=== PATIENT | female | born 1945 | race Caucasian/White ===

== ENCOUNTER 2016-10-31 06:14 | Emergency (ER) | payer MEDICARE ==
[~2016-10-31] VITALS: Ht 160 cm; Wt 110.0 kg
[~2016-10-31 06:14] MED LIST: ASPI81TA2 PO; ATOR20TA59 PO; CITA40TA14 PO; CRAN1CAP6 PO; DICY10CA13 PO; FURO40TA5 PO; GABA-338 PO; HYDR-3989 PO; IBUP-1724 PO; POTA10CA37 PO; SENN1TAB79 PO
[2016-10-31 06:17] VITALS: Ht 160 cm; Wt 110.0 kg
--- OUTSIDE RECORDS SUMMARY | 2016-10-31 06:19 | XMS REPORT | Continuity of Care Document ---
Author Author [facility] Organization [facility] Address Unknown Phone Unavailable Allergies Medications Problems Procedures Results Encounters ACCT No. Visit Date/Time Discharge Status Pt. Type Provider Facility Loc./Unit Complaint [id number] 08/15/2013 13:48:00 08/15/2013 23 :59:59 CLS Outpatient
--- OUTSIDE RECORDS SUMMARY | 2016-10-31 06:21 | XMS REPORT | Continuity of Care Document ---
Author Author [facility] Organization [facility] Address Unknown Phone Unavailable Care Team Providers Care Taxi Cab Driver Name Role Phone ULYSSES MARINELLI MD Primary Care Physician [phone] Insurance Providers Guarantor Casimiro Murray Address [address] [place] [address] Email [email or web address] Payer Medicarecritical access hospitalra o Policy Number [id number] Subscriber's Name Casimrio Murray Relationship 18 Self Group Number [id number] Effective Date 12 Chief Complaint and Reason for Visit Chief Complaint Lower Extremity Pain Reason for Visit Osteoarthritis (arthritis due to wear and tear of joints) Problems Active Problems Medical Problem Onset Date Status Bilateral cellulitis of lower leg Unknown Acute COPD (chronic obstructive pulmonary disease) Unknown Chronic Chest pain Unknown Acute Depression Unknown Chronic Diverticulitis Unknown Chronic HTN (hypertension) Unknown Chronic Head trauma Unknown Chronic IBS (irritable bowel syndrome) Unknown Chronic Leg pain, anterior Unknown Acute Obesity (BMI 30-39.9) Unknown Chronic Obstructive sleep apnea Unknown Rash Unknown Acute Seizure Unknown Chronic Tobacco dependence Unknown Chronic Past Problems Medical Problem Onset Date Hip pain Unknown Osteoarthritis (arthritis due to wear and tear of joints) Unknown Medications Current Home Medications Medication Dose Units Route Directions Days Qty Instructions Start Date Acetaminophen/Hydrocodone Bitart (Fannin 5-325 Tablet) 5-325 Tablet 1 Tab Oral Three Times A Day as needed for Pain filled 90 tabs on 09/30/16 Aspirin 81 Mg Tab.chew 162 Mg Oral Daily 09/24/15 Atorvastatin Calcium 20 Mg Tablet 20 Mg Oral Bedtime 09/20/15 Citalopram Hydrobromide (Celexa) 40 Mg Tablet 40 Mg Oral Bedtime 09/24/15 Cranberry Conc/Ascorbic Acid (Cranberry Plus Vitamin C Sftgl) 1 Each Capsule 1 Cap Oral Three Times Daily With Meals 09/24/15 Dicyclomine Hcl 10 Mg Capsule 10 Mg Oral Four Times Daily Furosemide 40 Mg Tablet 60 Mg Oral Twice A Day 10/30/16 Gabapentin 300 Mg Capsule 300 Mg Oral Twice A Day 04/10/15 Ibuprofen 200 Mg Tablet 800 Mg Oral Every 8 Hours as needed for Pain 07/08/16 Potassium Chloride 10 Meq Capsule.er 10 Meq Oral Daily 10/30/16 Sennosides/Docusate Sodium (Senna S Tablet) 1 Tab Tablet 2 Tab Oral Twice A Day 10/28/12 Past Home Medications Medication Directions Ordered Status Citalopram Hydrobromide (Celexa) 40 Mg Tablet, 1 Tab Oral Daily 05/22/15 Discontinued Citalopram Hydrobromide (Celexa) 40 Mg Tablet, Bedtime 10/08/08 Discontinued Cyclobenzaprine Hcl 10 Mg Tablet, 1 Tab Oral Three Times A Day as needed for Prn Orders 09/24/15 Discontinued Cyclobenzaprine Hcl 10 Mg Tablet, 10 Mg Oral As Needed 02/21/11 Discontinued Furosemide 40 Mg Tablet, 40 Mg Oral Daily 05/22/15 Discontinued Hydrochlorothiazide 25 Mg Tablet, Daily 10/08/08 Discontinued Lubiprostone (Amitiza) 24 Mcg Capsule, 24 Mcg Oral Daily 02/21/11 Discontinued Methylprednisolone (Medrol) 4 Mg Tablet, 2 Tab Oral Daily 09/24/15 Discontinued Potassium Chloride 10 Meq Capsule.er, 1 Tab Oral Daily 05/22/15 Discontinued Social History Social History Problem Response Recorded Date/Time Onset Date Status Hx Substance Use No 01/06/2016 7:20am Not Applicable Not Applicable Hx Alcohol Use No 01/06/2016 7:20am Not Applicable Not Applicable Has the pt used tobacco in the last 12 months Yes 07/08/2016 2:51pm Not Applicable Not Applicable Tobacco Usage smoke 05/22/2015 11:06am Not Applicable Not Applicable Hospital Discharge Instructions No hospital discharge instructions. Plan of Care Discharge Date 10/30/16 5:15pm Disposition 01 DISCHARGED HOME, SELF-CARE Condition at Discharge Stable Instructions/Education Provided Leg Pain (ED) Prescriptions See Medication Section Referrals ULYSSES MARINELLI MD Address: [address] [place] [address] [place] [phone] Functional Status No functional status results. Allergies, Adverse Reactions, Alerts Allergen Type Severity Reaction Status Last Updated bupropion HCl Allergy Unknown Active 10/30/16 Penicillin Allergy Unknown Active 10/30/16 Sulfa (Sulfonamide Antibiotics) Allergy Unknown Active 10/30/16 Conjugated estrogen Allergy Unknown Active 10/30/16 Codeine Allergy Unknown Active 10/30/16 Amoxicillin Allergy Unknown Active 10/30/16 Levofloxacin Allergy Unknown Active 10/30/16 Varenicline Allergy Unknown Active 10/30/16 Immunizations Query Response on File Recorded Date/Time Hx Influenza Vaccination No 07/08/16 2:51pm Hx Pneumococcal Vaccination Y 2012 07/08/16 2:51pm Hx Tetanus, Diptheria, Pertussis skin intact 04/10/15 8:25pm Hx Influenza Vaccination No 07/08/16 2:51pm Hx Tetanus, Diptheria, Pertussis skin intact 04/10/15 8:25pm DTaP Vaccine History UNKNOWN 01/06/16 7:20am Tdap Vaccine Hx N/A, SKIN INTACT 01/06/16 7:22am Vital Signs Acute Vital Signs Vital Response Date/Time Temperature (Fahrenheit) 99.0 deg F (96.8 - 99.1) 10/30/2016 3:25pm Temperature (Calculated Celsius) 37.33397 degrees C (36.0 - 37.3) 10/30/2016 3:25pm Pulse Rate (adult) 87 bpm (60 - 100) 10/30/2016 3:25pm Respiratory Rate 22 breaths/min (10 - 20) 10/30/2016 3:25pm O2 Sat by Pulse Oximetry 93 % (90 - 100) 10/30/2016 3:25pm Blood Pressure 141/81 mm Hg 10/30/2016 3:25pm Height (Feet) 5 feet 10/30/2016 3:25pm Height (Inches) 3.00 inches 10/30/2016 3:25pm Weight (Kilograms) 108.600 kg 10/30/2016 3:25pm Body Mass Index (BMI) 42.0 10/30/2016 3:25pm Results Name: CASIMIRO MURRAY Unit #: [id number] : 1945 Sex: F Admit Date: Loc / Svc: ED Discharge Date: DIAGNOSTIC IMAGING REPORT Report #: [id number] [facility], [place] Indication: ITS.REASON: pain PROCEDURE: KNEE BILAT STANDING 2-3 VIEWS: Encounter: Initial Comparison: None Findings: Right knee: No acute fracture or dislocation. Moderate lateral compartment joint space narrowing. No significant medial compartment joint space loss. Mild patellofemoral compartment degenerative changes. No joint effusion. Left knee: No acute fracture or dislocation. Mild medial compartment joint space narrowing. Small tricompartmental osteophytes. No gross joint effusion. Impression: Right knee: No acute fracture. Left knee: No acute fracture. . Procedures No known history of procedures. Encounters Encounter Location Arrival/Admit Date Discharge/Depart Date Attending Provider Departed Emergency Room [facility] 10/30/16 2:08pm 10/30/16 5: 15pm ELAINE ISSA MD Recent Diagnosis
--- OUTSIDE RECORDS SUMMARY | 2016-10-31 06:39 | XMS REPORT | Continuity of Care Document ---
Author Author [facility] Organization [facility] Address Unknown Phone Unavailable Allergies Medications Problems Procedures Results Encounters ACCT No. Visit Date/Time Discharge Status Pt. Type Provider Facility Loc./Unit Complaint [id number] 08/15/2013 13:48:00 08/15/2013 23 :59:59 CLS Outpatient
--- NOTE | 2016-10-31 06:53 | ERPDOC ---
Departure Disposition Decision Date: Oct 31, 2016 Disposition Decision Time: 06:54 Disposition: 01 DISCHARGED HOME, SELF-CARE Impression Impression Impression: Primary Impression: Chronic pain Chronic pain type: other chronic pain Qualified Codes: G89.29 - Other chronic pain Additional Impression: Osteoarthritis Osteoarthritis location: knee Osteoarthritis type: unspecified Laterality: right Qualified Codes: M17.11 - Unilateral primary osteoarthritis, right knee Severity: Mild Condition: Improved Seen By: Physician only Referrals: ULYSSES MARINELLI MD (PCP) 1 Day Patient Instructions: Leg Pain (ED) Problems/Meds/Labs Reviewed?: Yes Medications reviewed and manag: Yes Follow up care ordered?: Yes Mental Status: Alert, Oriented HPI - General Medical General Chief Complaint: Lower Extremity Pain Stated Complaint: R LEG PAIN Time Seen by Provider: 06:24 Source: patient, family Exam Limitations: no limitations HPI - General Medical Initial Comments 71-year-old female presents to the emergency department with a chief complaint of chronic pain in her right knee. Patient states that she has had this particular pain for over one year. She was seen yesterday in the emergency department and had imaging of the lumbar spine and right knee performed. Patient notes a moderate dull aching sensation in the right knee without radiation. She denies any injury or trauma. Patient has not been able to attend her physical therapy appointments due to conflict of scheduling. She is also currently out of her Summerfield 5 mg tablets which she has had refilled and will be able to cone picker the medication from the pharmacy today. She denies any other complaints or associated symptoms. Patient states this is her typical chronic pain. Patient declines recommended further imaging in the emergency department. The is occult therapy and Summerfield improves the pain. Ambulation increases her symptoms. She denies numbness, tingling, fever, chills, saddle anesthesia, loss of bowel or bladder control, focal weakness, abdominal pain, anticoagulation, IV drug abuse or other warning signs of back pain. Occurred At: home Onset: Constant Allergies: Coded Allergies: Estrogens (Verified Allergy, Unknown, 10/30/16) Penicillins (Verified Allergy, Unknown, 10/30/16) Sulfa (Sulfonamide Antibiotics) (Verified Allergy, Unknown, 10/30/16) amoxicillin (Verified Allergy, Unknown, 10/30/16) bupropion HCl (Verified Allergy, Unknown, 10/30/16) codeine (Verified Allergy, Unknown, 10/30/16) levofloxacin (Verified Allergy, Unknown, 10/30/16) varenicline (Verified Allergy, Unknown, 10/30/16) Past History Patient Surgical History Cholecystectomy 1979 BTL 1979 lipoma removed from upper back Past Medical History Metabolic: hypertension Respiratory: COPD, pneumonia GI: IBS, other Integumentary: other Surgical History General: gallbladder, hernia Reproductive/: tubal ligation Joint: other Family History Family PMH: FOUND: hypertension Vaccines Hx Influenza Vaccination: No Hx Pneumococcal Vaccination: Yes (2011) Social History Smoking Status: Current every day smoker # of Packs/Tins per Day: 1 # of Years: 56 Substance Use Type: does not use Alcohol Intake: none Sexuality: male partner Review of Systems Constitutional Constitutional: DENIES: chills, fever Eyes General: DENIES: erythema, exudate Lids/Accessories: DENIES: erythema, swelling Vision: DENIES: acuity, blurring ENMT Ears: DENIES: drainage, erythema Hearing: DENIES: hearing loss Balance: DENIES: ataxia, falling to one side Sinuses: DENIES: congestion, pain Nose: DENIES: nosebleeds, pain Mouth/Throat: DENIES: painful swallowing, sore throat Teeth: DENIES: pain Jaw: DENIES: pain Cardiovascular Cardiac: DENIES: chest pain, dyspnea on exertion Rhythm/Rate: DENIES: irregular beat, palpitations Vascular: DENIES: pedal edema, unilateral swelling Pulmonary Respiratory: DENIES: cough, dyspnea, pleuritic chest pain, sputum GI Upper Abdomen: DENIES: nausea, pain, vomiting Lower Abdomen: DENIES: diarrhea, pain General: DENIES: dysuria, frequency Musculoskeletal General: joint pain, tenderness Integumentary Skin: DENIES: itching, rash Neurological General: DENIES: headache, numbness, weakness Psychiatric Psychiatric: DENIES: emotional instability, suicidal ideation/attempt Endocrine Endocrine: DENIES: polydipsia, polyphagia Hematologic/Lymphatic Hematologic/Lymphatic: DENIES: frequent nosebleeds, lymphadenopathy Allergic/Immunological Allergic/Immunoligical: DENIES: allergic reactions, hives Physical Exam General General Nourishment: well nourished, well developed, appears stated age, no acute distress, adult General Body Habitus: well groomed Vitals and Pain First Documented Vital Signs Date Time Temp Pulse Resp B/P Pulse Ox O2 Delivery O2 Flow Rate FiO2 4/21/17 06:17 97.4 82 18 156/71 95 Room Air Weight: Kilograms: 110.000 Height (feet): 5 Height (inches): 3.00 Triage Pain Scale: RN VS reviewed by Provider: Yes Normal Exams: Head: Normocephalic w/o trauma Eyes: Pupils are PERRLA w/ EOMI, No scleral icterus, irritation, or foreign bodies noted ENMT: No facial trauma, nasal exudates, pharyngeal erythema, or exudates are noted Dental: No fractured, loose, or missing teeth noted Neck: Full range of motion, without adenopathy, JVD, bruits or thyromegaly Chest/Resp: Clear all merino, with good airflow, and symmetry bilaterally CV: Regular rate and rhythm, without murmur or gallop, Pulses 2+ all extremities, capillary refill, <2 seconds all ext., no pedal edema noted Abdomen: Bowel sounds positive, soft, non-tender, non-distended, no hepatosplenomegaly, masses or bruits noted Lymphatic: No lymphadenopathy, or lymphedema noted Musculoskeletal: No tenderness, or deformity noted, good range of motion, all extremities Integumentary: No rashes, hives, or bruising noted, hair and nails, without abnormality Neurologic: Patient is alert, and oriented, cranial nerves, motor/sensory/ cerebellar, exams w/o gross deficits, to observation Psychiatric: Patient exhibits, appropriate attention, emotion and affect Musculoskeletal (brief) Comments R Knee - FROM. Mildly tender to palpation diffusely. no erythema. no edema. Pulses Intact. Sensation intact. Capillary refill less than 2. No focal bony tenderness. No other tenderness in the right lower extremity. Skin is intact. + changes consistent with OA noted. Neurologic (brief) Comments Reflexes 2/4 in all ext. Differential Diagnoses Considering: Other (OA/Chronic pain/Med. Refill/Pain control visit) Progress Results/Orders Orders Procedure Category Date Status Time Hydrocodone/Acetaminophen PHA 10/31/16 Complete (Summerfield 7.5/325 07:00 Medications Current ED Medications Acetaminophen/ Hydrocodone Bitart (Summerfield 7.5/325) 1 tab O ONCE PO Last administered on 10/31/16t 07:04; Start 10/31/16 at 07:00; Stop 10/31/16 at 07:01 ; Status DC Progress Progress Patient declines recommended imaging in the emergency Department. Patient states that she is only needing pain control. Patient requests Summerfield 7.5 mg tablet. Summerfield 7.5 mg tablet is administered by mouth 1 in the emergency department with improvement of symptoms. Patient declined immobilization of knee instead electing to wear her own compression sleeve from home. Patient is discharged home in improved condition. Patient has a wheelchair that she uses when her chronic pain is bad. Patient is to follow-up as directed. She is to fill her prescription medication today. She is to return to the emergency Department if her condition worsens or changes in any manner. Patient is in agreement with the current plan of management. She is to follow up as instructed. She is discharged home in improved condition. YAHIR DONALDSON DO Oct 31, 2016 06:53 YAHIR DONALDSON DO Oct 31, 2016 06:53
--- NOTE | 2016-10-31 07:05 | NUR ---
MEDICATION NORCO 7.5MG ADMINISTERED
[2016-10-31 07:08] VITALS: BP 148/74; PULSE 84; RESP 18; TEMP 97.4; O2SAT 96
--- NOTE | 2016-10-31 07:08 | NUR ---
DISMISSAL DISMISSAL INSTRUCTIONS TO PT AND . NO FURTHER QUESTIONS AT THIS TIME. PT LEFT DEPARTMENT PER WC WITH
== END 2016-10-31 07:08 | disposition home or self-care (01) ==
LOC: ED 06:14
DX: M17.11 Unilateral primary osteoarthritis, right knee (principal); G89.29 Other chronic pain
CPT/HCPCS: 99283; A9270

== ENCOUNTER 2016-12-08 16:09 | Emergency (ER) | payer MEDICARE ==
[~2016-12-08] VITALS: Ht 160 cm; Wt 104.0 kg
[2016-12-08 16:12] VITALS: TEMP 98.6; Ht 160 cm; Wt 104.0 kg
--- OUTSIDE RECORDS SUMMARY | 2016-12-08 16:13 | XMS REPORT | Continuity of Care Document ---
Author Author [facility] Organization [facility] Address Unknown Phone Unavailable Care Team Providers Care Wire Technician Name Role Phone ULYSSES MARINELLI MD Primary Care Physician [phone] Insurance Providers Guarantor Casimiro Murray Address [address] [place] [address] Email [email or web address] Payer Medicareadecu health [facility] hospitalra o Policy Number [id number] Subscriber's Name Casimiro Murray Relationship 18 Self Group Number [id number] Effective Date 12 Advance Directives Directive Response Recorded Date/Time Advanced Directives Type None 10/31/16 6:17am Chief Complaint and Reason for Visit Chief Complaint Lower Extremity Pain Reason for Visit Chronic pain Osteoarthritis Problems Active Problems Medical Problem Onset Date [...] Chronic Past Problems Medical Problem Onset Date Chronic pain Unknown Hip pain Unknown Osteoarthritis Unknown Osteoarthritis (arthritis due to wear and tear of joints) Unknown Medications Current Home Medications Medication Dose Units Route Directions Days Qty Instructions Start Date Acetaminophen/Hydrocodone Bitart (Clar[place] 5-325 Tablet) 5-325 Tablet 1 Tab Oral Three Times A Day as needed for Pain filled 90 tabs on 09/30/16 Aspirin 81 Mg Tab.chew 162 Mg Oral Daily 09/24/15 Atorvastatin Calcium 20 Mg Tablet 20 Mg Oral Bedtime 03/10/16 Citalopram Hydrobromide (Celexa) 40 Mg Tablet 40 [...] Problem Response Recorded Date/Time Onset Date Status Chewing Tobacco Status No 10/31/2016 6:38am Not Applicable Not Applicable Hx Substance Use No 10/31/2016 6:38am Not Applicable Not Applicable Hx Alcohol Use No 10/31/2016 6:38am Not Applicable Not Applicable Has the pt used tobacco in the last 12 months Yes 07/08/2016 2:51pm Not Applicable Not Applicable Tobacco Usage smoke 05/22/2015 11:06am Not Applicable Not Applicable Query Response Start Date Stop Date Smoking Status Current every day smoker Hospital Discharge Instructions No hospital discharge instructions. Plan of Care Discharge Date 10/31/16 7:08am Disposition 01 DISCHARGED HOME, SELF-CARE Condition at Discharge Improved Instructions/Education Provided Leg Pain (ED) Prescriptions See Medication Section Referrals ULYSSES MARINELLI MD Order Date: 1 Address: [address] [place] [address] [place] [phone] Note: Care Plan and Goals Physician Care Plan Problem: Chronic Pain, Osteoarthritis Goal: Follow up with primary care provider Instructions: Take medications and follow care plan as discussed/written Functional Status No functional status results. Allergies, [...] No 07/08/16 2:51pm Hx Pneumococcal Vaccination Y 201107/08/16 2:51pm Hx Tetanus, Diptheria, Pertussis skin intact 04/10/15 8:25pm Hx Influenza Vaccination No 07/08/16 2:51pm Hx Tetanus, Diptheria, Pertussis skin intact 04/10/15 8:25pm DTaP Vaccine History UNKNOWN 10/31/16 6:38am Tdap Vaccine Hx NO BROKEN SKIN 10/30/16 4:00pm Vital Signs Acute Vital Signs Vital Response Date/Time Temperature (Fahrenheit) 97.4 deg F (96.8 - 99.1) 10/31/2016 7:08am Temperature (Calculated Celsius) 36.65575 degrees C (36.0 - 37.3) 10/31/2016 7:08am Pulse Rate (adult) 84 bpm (60 - 100) 10/31/2016 7:08am Respiratory Rate 18 breaths/min (10 - 20) 10/31/2016 7:08am O2 Sat by Pulse Oximetry 96 % (90 - 100) 10/31/2016 7:08am Blood Pressure 148/74 mm Hg 10/31/2016 7:08am Height (Feet) 5 feet 10/31/2016 6:17am Height (Inches) 3.00 inches 10/31/2016 6:17am Weight (Kilograms) 110.000 kg 10/31/2016 6:17am Body Mass Index (BMI) 42.0 10/31/2016 6:17am Results No known relevant diagnostic tests, laboratory data and/or discharge summary. Procedures No known history of procedures. Encounters Encounter Location Arrival/Admit Date Discharge/Depart Date Attending Provider Departed Emergency Room [facility] 10/31/16 6:14am 10/31/16 7: 08am YAHIR DONALDSON DO Departed Emergency Room [facility] 10/30/16 2:08pm 10/30/16 5: 15pm ELAINE ISSA MD Recent Diagnosis
--- OUTSIDE RECORDS SUMMARY | 2016-12-08 16:13 | XMS REPORT | Continuity of Care Document ---
Author Author [facility] Organization [facility] Address Unknown Phone Unavailable Allergies Medications Problems Procedures Results Encounters ACCT No. Visit Date/Time Discharge Status Pt. Type Provider Facility Loc./Unit Complaint [id number] 08/15/2013 13:48:00 08/15/2013 23 :59:59 CLS Outpatient
--- NOTE | 2016-12-08 16:22 | ERPDOC ---
Departure Disposition Decision Date: December 08, 2016 Disposition Decision Time: 17:42 Disposition: 01 DISCHARGED HOME, SELF-CARE Impression Impression Impression: Primary Impression: Back pain with sciatica Additional Impression: Cellulitis Severity: Moderate Condition: Improved Seen By: Mid-level only Referrals: ULYSSES MARINELLI MD (PCP) Patient Instructions: Cellulitis (ED), Sciatica (ED) Problems/Meds/Labs Reviewed?: Yes Medications reviewed and manag: Yes Additional Instructions: You may take two of your already prescribed Wellington 7.5mg as needed for pain every 6 hours. Follow with your PCP for re-evaluation in the next 2-3 days. Take cephalexin 500mg four times daily for one week for cellulitis. Follow treatment plan. Follow up care ordered?: Yes Mental Status: Alert, Oriented Scripts Cephalexin (Cephalexin) 500 Mg Tablet 1 TAB PO QID for 7 Days, #28 TAB Prov: BHARATI NARANJO [facility] [employer] 12/08/16 HPI - General Medical General Chief Complaint: Lower Extremity Pain Stated Complaint: EXTREME PAIN HIP Time Seen by Provider: 16:21 Source: patient HPI - General Medical Initial Comments 71 YO F presents to ED with report of sciatic on the right side. Says pain starts in her right buttock and radiates to right groin. Has been having worsen pain over the last year. Thought "I could make it until tomorrow" to see provider but cannot take pain any longer. Says she has had multiple x-rays and CT scan of her back. Was in to see PCP last week and they made her an appointment with a inweaver. Patient denies any change iPatient is on norco 7/325mg. Allergies: Coded Allergies: Estrogens (Verified Allergy, Unknown, 12/08/16) Penicillins (Verified Allergy, Unknown, 12/08/16) Sulfa (Sulfonamide Antibiotics) (Verified Allergy, Unknown, 12/08/16) amoxicillin (Verified Allergy, Unknown, 12/08/16) bupropion HCl (Verified Allergy, Unknown, 12/08/16) codeine (Verified Allergy, Unknown, 12/08/16) levofloxacin (Verified Allergy, Unknown, 12/08/16) varenicline (Verified Allergy, Unknown, 12/08/16) Past History Patient Surgical History Cholecystectomy 1979 BTL 1979 lipoma removed from upper back Past Medical History Metabolic: hypertension Cardiac: DENIES: angina Respiratory: COPD, pneumonia GI: IBS, other Female: DENIES: renal insufficiency Neurological: DENIES: seizures Musculoskeletal: back pain, osteoarthritis Integumentary: other (cellulitis) Psychological: DENIES: depression Surgical History General: gallbladder, hernia Reproductive/: tubal ligation Family History Family PMH: FOUND: hypertension Vaccines Hx Influenza Vaccination: No Hx Pneumococcal Vaccination: Yes (2011) Social History # of Packs/Tins per Day: 1 # of Years: 56 Substance Use Type: does not use Alcohol Intake: none Sexuality: male partner Review of Systems Constitutional Constitutional: DENIES: chills, dizziness, fever, weakness Eyes General: DENIES: erythema, exudate Lids/Accessories: DENIES: erythema, swelling ENMT Ears: DENIES: pain Sinuses: DENIES: congestion, rhinorrhea Mouth/Throat: DENIES: sore throat Cardiovascular Cardiac: DENIES: chest pain, murmur Rhythm/Rate: DENIES: palpitations Pulmonary Respiratory: DENIES: cough, dyspnea GI Upper Abdomen: DENIES: nausea, pain, vomiting Lower Abdomen: DENIES: diarrhea, pain General: DENIES: dysuria, pain Musculoskeletal General: pain, see HPI, tenderness Integumentary Skin: color change, see HPI, DENIES: itching, rash Neurological General: DENIES: ataxia, change in strength, numbness, paralysis/paresis, weakness Psychiatric Psychiatric: DENIES: anxiety, depression, nervousness Physical Exam General General Nourishment: well nourished, well developed, adult, obese Vitals and Pain First Documented Vital Signs Date Time Temp Pulse Resp B/P Pulse Ox O2 Delivery O2 Flow Rate FiO2 12/08/16 16:12 98.6 95 18 136/82 91 Room Air Weight: Kilograms: Height (feet): 5 Height (inches): 3.00 Triage Pain Scale: Eyes (brief) Eyes Brief: found: EOMI ENMT (brief) ENMT Brief: NOT FOUND: nasal exudate, nasal swelling Neck (brief) Neck: FOUND: trachea midline Respiratory (brief) Respiratory: FOUND: clear all merino, equal bilaterally, symmetrical Cardiovascular Auscultation: FOUND: S1, S2, rate (90), regular Peripheral Pulses : Peripheral Pulses Side: right Pulses Strength: 2+ Musculoskeletal Joint : Side: Right Joint: hip Joint Findings: FOUND: pain (TTP over right medial buttock), NOT FOUND: ROM limited, deformity, instability, swelling Back: FOUND: other (pain with straight leg raise), tenderness (TTP over right buttock), NOT FOUND: spine point tenderness Integumentary General: FOUND: dry, warm Color: FOUND: erythema (over right ankle to mid calf with increase warmth to touch), pink Neurologic (brief) Neurological Brief: FOUND: motor-no gross deficits, sensory-no gross deficits Psychiatric (brief) Psychiatric Brief: FOUND: alert, normal affect, oriented Differential Diagnoses Considering: Disc Herniation, Compression Fracture, Lumbar Sprain, Lumbar Strain, Other (cellulitis) Progress Results/Orders Orders Procedure Category Date Status Time Ketorolac (Toradol) PHA 12/08/16 Complete 16:45 Morphine Sulfate PHA 12/08/16 Complete (Morphine) 16:45 Medications Current ED Medications Ketorolac Tromethamine (Toradol) 30 mg O ONCE IM Last administered on 16:48; Start 12/08/16 at 16:45; Stop 12/08/16 at 16:46; Status DC Morphine Sulfate (Morphine) 8 mg O ONCE IM Last administered on 12/08/16 16: 49; Start 12/08/16 at 16:45; Stop 12/08/16 at 16:46; Status DC Progress Progress On exam patient has obvious erythema with increased warmth to right ankle to mid calf with scale. Patient says she has frequent bouts of cellulitis on this leg. Patient declines any imaging. I discussed exam findings with patient. BHARATI NARANJO APRN December 08, 2016 16:22
[2016-12-08] MEDS ORDERED: HYDR-4072 PO (16:25)
[2016-12-08] MEDS ORDERED: NAPR220T61 PO (16:25)
--- OUTSIDE RECORDS SUMMARY | 2016-12-08 16:31 | XMS REPORT | Continuity of Care Document ---
Author Author [facility] Organization [facility] Address Unknown Phone Unavailable Allergies Medications Problems Procedures Results Encounters ACCT No. Visit Date/Time Discharge Status Pt. Type Provider Facility Loc./Unit Complaint [id number] 08/15/2013 13:48:00 08/15/2013 23 :59:59 CLS Outpatient
[2016-12-08] MEDS ORDERED: KETOROLAC 30mg/ml INJECTION IM ONE (16:45)
[2016-12-08] MEDS ORDERED: MORPHINE SULFATE 10 MG SYRINGE IM ONE (16:45)
--- NOTE | 2016-12-08 17:10 | NUR ---
STATUS PT REPORTS DECREASE IN PAIN FROM 1510 TO [phone] AFTER MEDS ADM. PROVIDED WITH GLASS OF ICE WATER PER REQUEST AFTER CLEARANCE WITH PROVIDER. DENIES FURTHER NEEDS AT THIS TIME.
--- NOTE | 2016-12-08 17:40 | NUR ---
SPLINT METACARPAL SPLINT WITH EXTRA PADDING PLACED TO LEFT ARM. NEUROS INTACT PRE AND POST SPLINT
--- NOTE | 2016-12-08 17:40 | NUR ---
Violet tapia in [facility] - 12/08/16 at 1748 by FABIAN SPLINT METACARPAL SPLINT WITH EXTRA PADDING PLACED TO LEFT ARM. NEUROS INTACT PRE AND POST SPLINT
[2016-12-08] MEDS ORDERED: CEPH500T PO (17:46)
[2016-12-08 17:55] VITALS: BP 144/88; PULSE 79; RESP 20; O2SAT 93
--- NOTE | 2016-12-08 17:59 | NUR ---
DISMISSAL DISMISSAL INSTRUCTIONS WITH RX X1. NO FURTHER QUESTIONS AT THIS TIME. PT LEFT DEPARTMENT PER WC WITHOUT INCIDENT
[2016-12-08] MEDS ORDERED: CEPHALEXIN 500 MG CAPSULE PO ONE (18:00)
== END 2016-12-08 17:59 | disposition home or self-care (01) ==
LOC: ED 16:09
DX: M54.41 Lumbago with sciatica, right side (principal); L03.115 Cellulitis of right lower limb
CPT/HCPCS: 96372; 99283; A9270; J1885

== ENCOUNTER 2016-12-13 07:09 | Observation (INO) ==
--- NOTE | 2016-12-13 07:46 | Emergency Department Report ---
General Adult HPI - General Chief complaint: Skin/Abscess/Foreign Body Stated complaint: CELLULITIS BOTH FEET, SCIATIC NERVE PAIN RIGHT HIP Time Seen by Provider: 12/13/16 07:42 Source: patient, family Mode of arrival: ambulatory Limitations: no limitations - History of Present Illness HPI narrative: 71-year-old female presents the emergency department with a chief complaint of bilateral lower extremity cellulitis. Onset of symptoms one week ago. Symptoms have been gradually progressive in nature since onset. She notes a moderate dull aching discomfort over bilateral lower extremities. Patient states that she was started on Keflex 6 days ago without improvement of symptoms. Patient notes that the pain increases with direct palpation of the affected area. She denies any other complaints or associated symptoms. She denies any trauma or injury. The right hip pain that the patient mentions she describes as chronic sciatic pain without acute new injury. She was at home when her symptoms began. Symptoms have been persistent in nature since onset. - Related Data Home Medications Medication Instructions Recorded Confirmed Sennosides/Docusate Sodium [Senna 2 tab PO BID #0 10/28/12 12/13/16 S Tablet] Gabapentin 300 mg PO BID #0 04/10/15 12/13/16 Atorvastatin Calcium 20 mg PO HS #0 09/20/15 12/13/16 Aspirin 162 mg PO DAILY #0 09/24/15 12/13/16 Citalopram Hydrobromide [Celexa] 40 mg PO HS #0 09/24/15 12/13/16 Furosemide 60 mg PO BID #0 10/30/16 12/13/16 Potassium Chloride 10 meq PO DAILY #0 10/30/16 12/13/16 Hydrocodone/Acetaminophen 1 tab PO Q4H #90 12/08/16 12/13/16 [Hydrocodon-Acetaminoph 7.5-325] Ibuprofen [Ibuprofen Ib] 4 tab PO Q4H PRN 12/13/16 12/13/16 cephALEXin [Cephalexin] 500 mg PO QID 12/13/16 12/13/16 Allergies Allergy/AdvReac Type Severity Reaction Status Date / Time amoxicillin Allergy Unknown Verified 12/13/16 11:13 ampicillin Allergy Unknown Verified 12/13/16 13:30 codeine Allergy Unknown Verified 12/13/16 11:13 Estrogens Allergy Unknown Verified 12/13/16 11:13 levofloxacin Allergy Unknown Verified 12/13/16 11:13 Penicillins Allergy Unknown Verified 12/13/16 11:13 Sulfa (Sulfonamide Allergy Unknown Verified 12/13/16 11:13 Antibiotics) varenicline Allergy Unknown Verified 12/13/16 11:13 bupropion HCl Allergy Unknown Uncoded 12/13/16 09:30 Review of Systems Constitutional: Denies: fever, chills Eyes: Denies: eye pain, eye discharge ENT: Denies: ear pain, throat pain Cardiovascular: Denies: chest pain, dyspnea on exertion Respiratory: Denies: cough, dyspnea Gastrointestinal: Denies: abdominal pain, nausea, vomiting, diarrhea Genitourinary: Denies: urgency, dysuria Musculoskeletal: Denies: back pain, joint swelling Integumentary: Reports: erythema. Denies: rash Neurological: Denies: headache, weakness Psychiatric: Denies: anxiety, depression Endocrine: Denies: fatigue, heat or cold intolerance Hematological/Lymphatic: Denies: easy bleeding, easy bruising Allergic/Immunologic: Denies: facial swelling, urticaria PFSH Hypertension, hyperlipidemia, depression, anxiety, cellulitis Surgical History: Tubal ligation Family History: Hypertension Smoking status: Unknown if ever smoked Substance use type: does not use Alcohol intake frequency: does not drink Physical Exam - Limitations Limitations: no limitations - General General appearance: alert, in no apparent distress - Normal Exams: Head:: Normocephalic without trauma Eyes:: Pupils are PERRLA w/ EOMI, No scleral icterus, irritation, or foreign bodies noted ENMT:: No facial trauma, nasal exudates, pharyngeal erythema, or exudates are noted Dental: No fractured, loose, or missing teeth noted Neck:: Full range of motion, without adenopathy, JVD, bruits or thyromegaly Chest/Respirations:: Clear all merino, with good airflow, and symmetry bilaterally Cardiovascular:: Regular rate and rhythm, without murmur or gallop, Pulses 2+ all extremities, capillary refill, <2 seconds all extremities Abdomen:: Bowel sounds positive, soft, non-tender, non-distended, no hepatosplenomegaly, masses or bruits noted Lymphatic:: No lymphadenopathy, or lymphedema noted Musculoskeletal:: No tenderness, or deformity noted, good range of motion, all extremities Integumentary:: No rashes (erythema over bilateral anterior lower extremities. No sign of abscess or lymphangitis. Affected area is warm and tender to palpation consistent with cellulitis. Pulses are intact. Sensation is intact. Capillary refill less than 2. No focal bony tenderness.), hives, or bruising noted, hair and nails, without abnormality Neurological:: Patient is alert, and oriented, cranial nerves, motor/sensory/ cerebellar, exams w/o gross deficits, to observation Psychiatric:: Patient exhibits, appropriate attention, emotion and affect Course Course Narrative: Labs/imaging were discussed in detail with the patient and family and questions are answered. Patient is given gentle IV hydration. Patient is given analgesic pain medication with improvement of symptoms in the emergency department. X-rays do not show any findings of gas or other acute processes. Patient is started on vancomycin 2 g IV 1 after blood cultures and lactic acid are obtained. Patient is admitted for failure of outpatient treatment with bilateral lower exstrophy cellulitis to the service of the hospitalist Dr. Crum. Patient and family are in agreement with the current plan of management. Patient is admitted to the hospital in improved condition. Vital Signs Temperature 98.7 F 12/13/16 07:10 Pulse Rate 87 12/13/16 07:10 Respiratory Rate 18 12/13/16 07:10 Blood Pressure 120/77 12/13/16 07:10 Pulse Oximetry 91 12/13/16 07:10 Temperature 96.4 F L 12/13/16 15:22 Pulse Rate 92 12/13/16 15:22 Respiratory Rate 20 12/13/16 15:22 Blood Pressure 141/73 H 12/13/16 15:22 Pulse Oximetry 90 12/13/16 15:22 Medical Decision Making - [facility] Narrative Medical decision making narrative: Labs / imaging were discussed in detail with the patient and family and questions are answered. Patient was given IV hydration. Patient was given parental narcotic and antiemetic medications intravenously with improvement of symptoms. Patient was started on IV vancomycin at 0916 when sepsis was considered. Patient is admitted to the service of Dr. Crum in improved condition. Dr. Crum is in agreement with the current plan of management. Patient and family are in agreement with the current plan of management. Patient is admitted to the hospital improved condition. No further orders. Patient was admitted for failure of outpatient treatment for bilateral lower extremity cellulitis. - Lab Data Result diagrams: 12/13/16 07:53 12/13/16 07:56 Lab Results 12/13/16 12/13/16 12/13/16 Range/Units 07:53 07:56 07:56 WBC 9.1 (4.5-11.0) T/MM3 RBC 5.47 H (4.00-5.20) M/MM3 Hgb 14.6 (12-16) GM/DL Hct 44.4 (36-46) % MCV 81.2 (80-100) UM3 MCH 26.7 (26-34) UUG MCHC 32.9 (31-37) GM/DL RDW Std Deviation 53.4 H (36.9-50.2) FL Plt Count 252 (130-400) T/MM3 MPV 10.3 (9.4-12.4) UM3 Immature Gran % (Auto) 0.7 H (0.0-0.5) % Neut % (Auto) 69.1 H (33-66) % Lymph % (Auto) 14.9 L (23-45) % Colbert % (Auto) 9.1 H (0-9.0) % Eos % (Auto) 5.4 H (0-4) % Baso % (Auto) 0.8 (0-2) % Neut # 6.3 (1.8-7.7) T/MM3 Lymph # 1.4 (1-4.8) T/MM3 Colbert # 0.8 (0-0.8) T/MM3 Eos # 0.5 (0-0.5) T/MM3 Baso # 0.1 (0-0.2) T/MM3 Abs Immat Gran (auto) 0.06 H (0.00-0.03) T/MM3 Turbidity 20 (0-20) Sodium 144 (134-144) MEQ/L Potassium 4.1 (3.6-5) MEQ/L Chloride 100 (98-107) MEQ/L Carbon Dioxide 34 H (22-30) MEQ/L Anion Gap 10 (5-15) MEQ/L BUN 13.0 (7-17) MG/DL Creatinine 0.9 (0.7-1.2) MG/DL GFR Calculation 62 BUN/Creatinine Ratio 14 (6-26) RATIO Glucose 99 (65-110) MG/DL Calculated Osmolality 277 (261-280) MOSM/KG Calcium 9.3 (8.4-10.2) MG/DL Total Bilirubin 0.50 (0.20-1.30) MG/DL Icterus Index 2 (0-7) AST 15 (14-36) U/L ALT 34 (9-52) U/L Alkaline Phosphatase 95 (38-126) U/L Total Protein 6.8 (6.3-8.2) G/DL Albumin 4.1 (3.5-5.0) G/DL Globulin 2.7 (2.4-3.6) G/DL Albumin/Globulin Ratio 1.5 (1.1-2.2) RATIO Plasma Lactate 0.7 (0.6-2.2) MMOL/L Procalcitonin < 0.05 NG/ML Specimen Hemolysis 15 (0-25) - Radiology Data Bilateral lower extremity tibia/fibula x-rays: Negative Disposition Clinical Impression: Cellulitis Disposition: To [facility] Condition: Stable Time of Disposition: 10:00 (admit Dr. Crum) - Seen By: physician
[2016-12-13] MEDS ORDERED: MORPHINE SULFATE 2 MG SYRINGE IVP PRN (11:08)
[2016-12-13] MEDS ORDERED: PIPERACILLIN/TAZOBACTAM 3.375 GM in NS 100 ML IV SCH (11:08)
--- NOTE | 2016-12-13 11:14 | History & Physical Report ---
Addendum entered and electronically signed by Kassie Swift APRN 12/13/16 11 :41: Last echocardiogram from 07/10/16- EF 58% with mild diastolic dysfunction was unremarkable Original Note: <Kassie Swift V - Last Filed: 12/13/16 11:00> History of Present Illness Date: Chief complaint: Bilateral lower ext edema HPI: Gege is a 71-year-old female who is well known to the hospitalist services from previous admissions. She was seen on 12/08/16 at the emergency room with "sciatica pain and lower extremity cellulitis. She was started on Keflex 4 times a day 1 week and was also given Marshall for pain control. Since that time, pain has persisted in the right hip radiating down the right leg. She continues to have bilateral lower extremity erythema and swelling. Today, pain got so severe she presented to the emergency room for further acute evaluation and treatment. Further evaluation including laboratory studies and x-ray were obtained. WBC was found to be normal at 9.1, hemoglobin 14.6, hematocrit 44.4, platelet count 252, 69% neutrophils. Sodium is 144, potassium 4.1, BUN 13, creatinine 0.9. In this lactate is normal 0.7. Pro-calcitonin is undetectable, less than 0.05. She is afebrile at 96.0, pulse 89, respiration rate 24, blood pressure was elevated 186/93. A tib-fib x-ray was obtained that did not show any osseous abnormality. She was given IV fluids as well as vancomycin for antimicrobial coverage in the emergency room. Given swelling of lower extremities accompanied with significant pain . The hospitalist services were contacted and accepted patient for outpatient admission Patient is seen on initial examination on arrival to the medical floor. She is alert, oriented and extremely anxious. Clinically patient appears similar to prior admission in June 2016 at which time she did have chronic venous stasis of the bilateral lower extremities. Her new complaint is pain in the right hip as she did "bump" the side of her hip 3 days ago. She has pain that radiates down her leg. Has been using Marshall at home without relief. Her does verbalize that he is concerned for the severity of her discomfort and he is unable to care for her at home all the time. Did discuss advanced directives and patient does verify she wishes to be a full code Review of Systems All systems: reviewed and no additional remarkable complaints except as stated - Respiratory Respiratory: Present: cough (chronic ) - Gastrointestinal Gastrointestinal: Present: as per HPI, constipation Gastrointestinal Comments: Feels abdominal distension - Musculoskeletal Musculoskeletal: Present: as per HPI Musculoskeletal Comments: Right hip pain with radiation down right leg - Psychiatric Psychiatric: Present: anxiety, depression PFSH Hypertension. Seizures. Irritable bowel with constipation. COPD Depression. Obstructive sleep apnea. Chronic venous stasis. Obesity Surgical History: Cholecystectomy 1979. BTL 1979. lipoma removed from upper back Family History: Father had heart trouble, of heart problems or stroke in his mid-70s. He was obese and had diabetes. Mother was a heavy smoker. She had lung cancer. in her 70s. Maternal aunt also of lung cancer. Almost everyone in her family has depression. Sister, age 67, kidney failure on dialysis, plans to have kidney transplant. She is also diabetic. Hx breast cancer. Younger brother of lymphoma at age 57. Smoking status: Current every day smoker Substance use type: does not use Alcohol intake frequency: does not drink Housing: house Household members: spouse Social history: PCP Dr Marie Medications Home Medications Medication Instructions Recorded Confirmed Type Sennosides/Docusate Sodium [Senna 2 tab PO BID #0 10/28/12 12/13/16 History S Tablet] Gabapentin 300 mg PO BID #0 04/10/15 12/13/16 History Atorvastatin Calcium 20 mg PO HS #0 09/20/15 12/13/16 History Aspirin 162 mg PO DAILY #0 09/24/15 12/13/16 History Citalopram Hydrobromide [Celexa] 40 mg PO HS #0 09/24/15 12/13/16 History Furosemide 60 mg PO BID #0 10/30/16 12/13/16 History Potassium Chloride 10 meq PO DAILY #0 10/30/16 12/13/16 History Hydrocodone/Acetaminophen 1 tab PO Q4H #90 12/08/16 12/13/16 History [Hydrocodon-Acetaminoph 7.5-325] Ibuprofen [Ibuprofen Ib] 4 tab PO Q4H PRN 12/13/16 12/13/16 History cephALEXin [Cephalexin] 500 mg PO QID 12/13/16 12/13/16 History Allergies Allergy/AdvReac Type Severity Reaction Status Date / Time amoxicillin Allergy Unknown Verified 12/13/16 11:13 ampicillin Allergy Unknown Verified 12/13/16 13:30 codeine Allergy Unknown Verified 12/13/16 11:13 Estrogens Allergy Unknown Verified 12/13/16 11:13 levofloxacin Allergy Unknown Verified 12/13/16 11:13 Penicillins Allergy Unknown Verified 12/13/16 11:13 Sulfa (Sulfonamide Allergy Unknown Verified 12/13/16 11:13 Antibiotics) varenicline Allergy Unknown Verified 12/13/16 11:13 bupropion HCl Allergy Unknown Uncoded 12/13/16 09:30 Exam Vital Signs: Temp Pulse Resp BP Pulse Ox 96.0 F L 89 24 186/93 H 90 12/13/16 10:26 12/13/16 10:26 12/13/16 10:26 12/13/16 10:26 12/13/16 10:26 Height: 1.6 m Weight: 104.5 kg Body Mass Index: 40.8 - Constitutional Present: no acute distress - Routine HEENT Exam Head: Present: normocephalic Eye: Present: EOMI, PERRL - Routine Neck Exam Present: full ROM - Routine Respiratory Exam Present: CTA bilaterally - Routine Cardiovascular Exam Present: RRR, S1, S2 - Routine Abdominal Exam Present: distended, firm. Absent: normoactive bowel sounds - Routine Extremities Exam Present: edema - Detailed Lower Extremity Exam Hip: Right decreased ROM Upper leg: Right: normal inspection Lower leg: Bilateral swelling, Bilateral erythema Ankle: Bilateral erythema, Bilateral swelling - Routine Back/Spine/Pelvis Exam Pelvis: Present: SI joint tenderness (Right) - Routine Skin Exam Present: erythema (bilateral lower ext) - Routine Neurological Exam Present: alert, oriented X3, CN II-XII intact - Routine Psychiatric Exam Present: normal affect, normal thought process Results - Labs CBC & Chem 7: 12/13/16 07:53 12/13/16 07:56 Assessment and Plan (1) Venous stasis of both lower extremities Current visit: Yes Status: Acute (2) Abdominal distention Current visit: Yes Status: Acute (3) Right hip pain Current visit: Yes Status: Acute (4) Sciatica of right side Current visit: Yes Status: Acute (5) Anxiety Current visit: Yes Status: Acute Situational anxiety related to pain (6) Hypertension Current visit: Yes Status: Chronic (7) COPD (chronic obstructive pulmonary disease) Current visit: Yes Status: Chronic (8) Sleep apnea Current visit: Yes Status: Chronic (9) Tobacco dependence Current visit: Yes Status: Chronic Assessment and Plan: 12/13/16 Admit patient to outpatient observation under care of Dr. Pierce for acute exacerbation of chronic venous stasis dermatitis. Patient did receive an initial dose of vancomycin while in the emergency room. Will discuss this further with attending. Does not appear to be infectious in nature Will place Kenalog topically to bilateral lower extremities. Will place compression wraps using Dante wrap to entire lower extremity up above-knee. Continue with home dose of Lasix, 60 milligrams twice a day. In 10 you with potassium supplementation Obtain a KUB and upright x-ray given abdominal distention. Patient does report she has not had a bowel movement for 1 week, which is abnormal. She has been taking increased doses of [place] for pain control. Will rule out obstruction. Will continue on routine senna S and add Dulcolax suppositories twice a day. She on Celexa scheduled. May need to consider adding a further agent due to significant anxiety. At this point will add as needed Ativan. Morphine available as needed for pain control, however, would like to limit this. Given her constipation. Obtain x-ray of right hip given acute tenderness/pain. Will discuss further plan of care and orders with attending, Dr Pierce At time of discharge medical care will return to primary care provider, Dr. Marie Sepsis Assessment - Evaluation Sepsis screening result: No Definite Risk - Focused Exam Vital Signs Temp Pulse Resp BP Pulse Ox 12/13/16 10:26 96.0 F L 89 24 186/93 H 90 Hospital Course Summary Disclaimer: The visit summary below is not to be considered part of the above Progress Note. Hospital Course: 12/13/16 Admit patient to outpatient observation under care of Dr. Pierce for acute exacerbation of chronic venous stasis dermatitis. Patient did receive an initial dose of vancomycin while in the emergency room. Will discuss this further with attending. Does not appear to be infectious in nature Will place Kenalog topically to bilateral lower extremities. Will place compression wraps using Dante wrap to entire lower extremity up above-knee. Continue with home dose of Lasix, 60 milligrams twice a day. In 10 you with potassium supplementation Obtain a KUB and upright x-ray given abdominal distention. Patient does report she has not had a bowel movement for 1 week, which is abnormal. She has been taking increased doses of [place] for pain control. Will rule out obstruction. Will continue on routine senna S and add Dulcolax suppositories twice a day. She on Celexa scheduled. May need to consider adding a further agent due to significant anxiety. At this point will add as needed Ativan. Morphine available as needed for pain control, however, would like to limit this. Given her constipation. Obtain x-ray of right hip given acute tenderness/pain. Will discuss further plan of care and orders with attending, Dr Pierce At time of discharge medical care will return to primary care provider, Dr. Marie <Farhan Pierce - Last Filed: 12/13/16 14:41> History of Present Illness Date: [facility] Patient Stated Medical History Other Neurological: Yes Cataracts Yes Dental Problems dentures Angina Yes Hypertension Yes Chronic Obstructive Pulmonary Yes Disease (COPD) Sleep Apnea Yes: does not use a machine Hiatal Hernia Yes Other GI Yes: IBS Osteoarthritis Yes Cellulitis Yes Depression Yes Exam Vital Signs: Temp Pulse Resp BP Pulse Ox 96.0 F L 89 24 186/93 H 90 12/13/16 10:26 12/13/16 10:26 12/13/16 10:26 12/13/16 10:26 12/13/16 10:26 Height: 1.6 m Weight: 104.5 kg Results - Labs CBC & Chem 7: 12/13/16 07:53 12/13/16 07:56 Assessment and Plan Assessment and Plan: S: Pt reports chronic LE erythema and swelling, denies any f/c, n/v/d, cp or sob. O: Gen: alert oriented Resp: CTAB, no wheezes Cards: RRR without murmurs Ext: erythema and 3+ pitting edema bilaterally A/P: Stasis Dermatitis -Some concern for neuropathy component making it worse vs Lipodermatosclerosis -No clear etiology for LE swelling other then venous insufficiency, echo was mostly unremarkable, no liver or renal dysfunction suspected -Labs, clinical picture not consistent with infection so will hold off on abx -Pt reports she cannot tolerate any further increase in her gabapentin -Will do tx for statis dermatitis, topical steroids, can consider systemic steroids -Will do work up-->Order HIV, B12/folate, TSH, CRP, ESR, PERLA, Hep panel Constipation -Likely 2/2 opiate use, will do bowel regimen Sepsis Assessment - Focused Exam Vital Signs Temp Pulse Resp BP Pulse Ox 12/13/16 10:26 96.0 F L 89 24 186/93 H 90 12/13/16 10:20 98.4 F 84 20 151/88 H 91 Hospital Course Summary Disclaimer: The visit summary below is not to be considered part of the above Progress Note.
[2016-12-13] MEDS: HYDROCODONE/APAP 7.5 MG/325 MG TABLET PO SCH ×4 (11:15→22:54)
--- NOTE | 2016-12-13 13:04 | XRay Report ---
Indication: cellulitis and soft tissue swelling with redness for four days PROCEDURE: XR tib/fib BI 2V: Encounter: Initial Comparison: None Findings: Right tibia and fibula: No acute fracture, dislocation or malalignment identified. Subcutaneous edema without obvious subcutaneous gas. Left tibia and fibula: No acute fracture or dislocation. Subcutaneous soft tissue edema without obvious subcutaneous gas. Impression: Right tibia and fibula: No acute osseous abnormality. Left tibia and fibula: No acute osseous abnormality. .
[2016-12-13] MEDS: BISACODYL 10 MG SUPPOSITORY RECTALLY SCH (13:39)
[2016-12-13] MEDS: NICOTINE 21 MG PATCH TD SCH (13:41)
--- NOTE | 2016-12-13 13:52 | XRay Report ---
Indication: Right hip pain PROCEDURE: XR pelvis w/ 1 view RT hip: Encounter: Initial Comparison: None Findings: There is no acute fracture, dislocation or malalignment identified. Severe osteoarthritis in both hips with a [id number] appearance. There is osteonecrosis and flattening of the left femoral head. Degenerative change in the visualized lower lumbar spine. Right pelvic surgical clips. Impression: No acute fracture. Severe osteoarthritis. .
--- NOTE | 2016-12-13 13:53 | XRay Report ---
Indication: abdominal distention PROCEDURE: XR KUB w upright: Encounter: Initial Comparison: None Findings: Lung bases show minimal left lower lobe atelectasis. No free air. Bowel gas pattern is nonobstructive and nonspecific with a large amount of stool in the colon. Cholecystectomy clips. No abnormally dilated small bowel loops appreciated. Gas is seen distally to the level of the rectum. Severe degenerative change in the lower lumbar spine and hips. Impression: Nonobstructive nonspecific bowel gas pattern. Significantly increased colonic stool burden. .
[2016-12-13] MEDS: TRIAMCINOLONE 0.1% CREAM 15 G TUBE TOP SCH ×2 (15:08→21:21)
[2016-12-13] MEDS: FUROSEMIDE 40 MG TABLET PO SCH (17:25)
[2016-12-13] MEDS: ATORVASTATIN 20 MG TABLET PO SCH (21:19)
[2016-12-13] MEDS: BISACODYL E.C. 5 MG TABLET PO SCH (21:19)
[2016-12-13] MEDS: GABAPENTIN 300 MG CAPSULE PO SCH (21:20)
[2016-12-13] MEDS: CITALOPRAM 40 MG TABLET PO SCH (21:20)
[2016-12-13] MEDS: SENNA + DOCUSATE TABLET PO SCH (21:21)
[2016-12-14] MEDS: HYDROCODONE/APAP 7.5 MG/325 MG TABLET PO SCH ×6 (03:14→22:31)
[2016-12-14] MEDS: BISACODYL E.C. 5 MG TABLET PO SCH ×2 (09:01→20:30)
[2016-12-14] MEDS: BISACODYL 10 MG SUPPOSITORY RECTALLY SCH (09:01)
[2016-12-14] MEDS: NICOTINE 21 MG PATCH TD SCH (09:02)
[2016-12-14] MEDS: NICOTINE PATCH REMOVAL TD SCH (09:02)
[2016-12-14] MEDS: SENNA + DOCUSATE TABLET PO SCH ×2 (09:03→20:30)
[2016-12-14] MEDS: FUROSEMIDE 40 MG TABLET PO SCH ×2 (09:03→17:05)
[2016-12-14] MEDS: GABAPENTIN 300 MG CAPSULE PO SCH ×2 (09:03→20:30)
[2016-12-14] MEDS: ASPIRIN 81 MG CHEWABLE TABLET PO SCH (09:03)
[2016-12-14] MEDS: TRIAMCINOLONE 0.1% CREAM 15 G TUBE TOP SCH ×3 (11:12→20:31)
--- NOTE | 2016-12-14 14:06 | Progress Note ---
Subjective: Pt reports feeling the same as yesterday, denies any cp, n/v/d, f/c. LE swelling is a bit better. Objective Vital signs: Temp Pulse Resp BP Pulse Ox 96.2 F L 84 22 127/76 90 12/14/16 07:46 12/14/16 07:46 12/14/16 07:46 12/14/16 07:46 12/14/16 07:46 Weight: 103.5 kg - Constitutional Present: no acute distress - Routine HEENT Exam Head: Present: normocephalic, atraumatic Eye: Absent: scleral injection - Routine Respiratory Exam Present: CTA bilaterally. Absent: rales, wheezes - Routine Cardiovascular Exam Present: RRR, no murmur - Routine Abdominal Exam Present: soft, non tender - Routine Extremities Exam Present: edema. Absent: cyanosis, clubbing - Routine Skin Exam Present: rash Results - Labs CBC & Chem 7: 12/14/16 04:32 12/14/16 04:32 Labs: Short CBC 12/14/16 Range/Units 04:32 WBC 9.1 (4.5-11.0) T/MM3 Hgb 14.0 (12-16) GM/DL Hct 43.2 (36-46) % Plt Count 253 (130-400) T/MM3 BMP 12/14/16 04:32 Sodium 145 H Potassium 3.7 Chloride 101 Carbon Dioxide 33 H BUN 10.0 Creatinine 0.8 Glucose 99 Calcium 9.1 Liver Function 12/14/16 Range/Units 04:32 Total Bilirubin 0.60 (0.20-1.30) MG/DL AST 16 (14-36) U/L ALT 31 (9-52) U/L Alkaline Phosphatase 87 (38-126) U/L Albumin 4.0 (3.5-5.0) G/DL Assessment and Plan (1) Stasis dermatitis Current visit: Yes Status: Chronic (2) Right hip pain Current visit: Yes Status: Chronic (3) Sciatica of right side Current visit: Yes Status: Chronic (4) Venous stasis of both lower extremities Current visit: Yes Status: Chronic (5) COPD (chronic obstructive pulmonary disease) Current visit: Yes Status: Chronic (6) Hypertension Current visit: Yes Status: Chronic (7) Sleep apnea Current visit: Yes Status: Chronic (8) Tobacco dependence Current visit: Yes Status: Chronic Assessment and Plan: Stasis Dermatitis -Some concern for neuropathy component making it worse -No other clear etiology for LE swelling other then venous insufficiency, obesity and RODO, echo was mostly unremarkable, no liver or renal dysfunction suspected -Labs, clinical picture not consistent with infection so will hold off on abx -Pt reports she cannot tolerate any further increase in her gabapentin -Will do tx for statis dermatitis with triamcinolone cream, can consider systemic steroids -Will do work up-->HIV Neg, B12/folate pending, TSH wnl, CRP 16, PERLA pending, Hep panel pending -Discussed with pt-->Need for RODO control, elevation of legs, compression stockings Constipation -Resolved -Likely 2/2 opiate use, bowel regimen Sepsis Assessment - Evaluation Sepsis screening result: No Definite Risk - Focused Exam Vital Signs Temp Pulse Resp BP Pulse Ox 12/14/16 07:46 96.2 F L 84 22 127/76 90 Respiratory exam: Present: CTA bilaterally Cardiovascular exam: Present: RRR, S1, S2 Hospital Course Summary Disclaimer: The visit summary below is not to be considered part of the above Progress Note. Hospital Course: 12/13/16 Admit patient to outpatient observation under care of Dr. Pierce for acute exacerbation of chronic venous stasis dermatitis. Patient did receive an initial dose of vancomycin while in the emergency room. Will discuss this further with attending. Does not appear to be infectious in nature Will place Kenalog topically to bilateral lower extremities. Will place compression wraps using Dante wrap to entire lower extremity up above-knee. Continue with home dose of Lasix, 60 milligrams twice a day. In 10 you with potassium supplementation Obtain a KUB and upright x-ray given abdominal distention. Patient does report she has not had a bowel movement for 1 week, which is abnormal. She has been taking increased doses of [place] for pain control. Will rule out obstruction. Will continue on routine senna S and add Dulcolax suppositories twice a day. She on Celexa scheduled. May need to consider adding a further agent due to significant anxiety. At this point will add as needed Ativan. Morphine available as needed for pain control, however, would like to limit this. Given her constipation. Obtain x-ray of right hip given acute tenderness/pain. Will discuss further plan of care and orders with attending, Dr Pierce At time of discharge medical care will return to primary care provider, Dr. Marie
[2016-12-14] MEDS: ATORVASTATIN 20 MG TABLET PO SCH ×2 (20:30→22:13)
[2016-12-14] MEDS: CITALOPRAM 40 MG TABLET PO SCH ×2 (20:30→22:12)
[2016-12-15] MEDS: HYDROCODONE/APAP 7.5 MG/325 MG TABLET PO SCH ×5 (03:22→22:05)
[2016-12-15] MEDS: SALINE FLUSH 10ml SYRINGE IV PRN ×4 (03:28→23:25)
[2016-12-15] MEDS: NICOTINE 21 MG PATCH TD SCH (08:26)
[2016-12-15] MEDS: NICOTINE PATCH REMOVAL TD SCH (08:27)
[2016-12-15] MEDS: FUROSEMIDE 40 MG TABLET PO SCH ×2 (08:27→17:37)
[2016-12-15] MEDS: SENNA + DOCUSATE TABLET PO SCH ×2 (08:27→22:10)
[2016-12-15] MEDS: GABAPENTIN 300 MG CAPSULE PO SCH ×2 (08:28→22:11)
[2016-12-15] MEDS: TRIAMCINOLONE 0.1% CREAM 15 G TUBE TOP SCH ×3 (08:28→22:13)
[2016-12-15] MEDS: ASPIRIN 81 MG CHEWABLE TABLET PO SCH (08:28)
[2016-12-15] MEDS: BISACODYL E.C. 5 MG TABLET PO SCH ×2 (08:28→22:10)
[2016-12-15] MEDS: BISACODYL 10 MG SUPPOSITORY RECTALLY SCH (08:29)
--- NOTE | 2016-12-15 15:28 | Discharge Summary ---
Discharge Information Date of admission: 12/13/16 09:35 Anticipated date of discharge: 12/15/16 Attending Physician: Frederick Harrison MD Primary care physician: Leonides Marie MD - Discharge Diagnosis (1) Stasis dermatitis Status: Chronic (2) Right hip pain Status: Chronic (3) Sciatica of right side Status: Chronic (4) Venous stasis of both lower extremities Status: Chronic (5) COPD (chronic obstructive pulmonary disease) Status: Chronic (6) Hypertension Status: Chronic (7) Sleep apnea Status: Chronic (8) Tobacco dependence Status: Chronic - Laboratory Labs: 12/14/16 04:32 12/14/16 04:32 History of Present Illness HPI: Gege is a 71-year-old female who is well known to the hospitalist services from previous admissions. She was seen on 12/08/16 at the emergency room with "sciatica pain and lower extremity cellulitis. She was started on Keflex 4 times a day 1 week and was also given [place] for pain control. Since that time, pain has persisted in the right hip radiating down the right leg. She continues to have bilateral lower extremity erythema and swelling. Today, pain got so severe she presented to the emergency room for further acute evaluation and treatment. Further evaluation including laboratory studies and x-ray were obtained. WBC was found to be normal at 9.1, hemoglobin 14.6, hematocrit 44.4, platelet count 252, 69% neutrophils. Sodium is 144, potassium 4.1, BUN 13, creatinine 0.9. In this lactate is normal 0.7. Pro-calcitonin is undetectable, less than 0.05. She is afebrile at 96.0, pulse 89, respiration rate 24, blood pressure was elevated 186/93. A tib-fib x-ray was obtained that did not show any osseous abnormality. She was given IV fluids as well as vancomycin for antimicrobial coverage in the emergency room. Given swelling of lower extremities accompanied with significant pain . The hospitalist services were contacted and accepted patient for outpatient admission Patient is seen on initial examination on arrival to the medical floor. She is alert, oriented and extremely anxious. Clinically patient appears similar to prior admission in June 2016 at which time she did have chronic venous stasis of the bilateral lower extremities. Her new complaint is pain in the right hip as she did "bump" the side of her hip 3 days ago. She has pain that radiates down her leg. Has been using Cana at home without relief. Her does verbalize that he is concerned for the severity of her discomfort and he is unable to care for her at home all the time. Did discuss advanced directives and patient does verify she wishes to be a full code 12/15/16 15:29 Hospital Course Hospital course: has been admitted multiple times for "cellulitis" and also has been prescribed multiple courses of abx as outpatient in the last 6-8 months for her LE swelling and redness. The abx have not helped. Pt has had chronic LE swelling for >1yr and the erythema has also been present for 6mos-1yr. This is likely statis dermatitis and chronic inflammation and not an acute infection. Pt has no WBC elevation, no fever, no procalcitonin elevation, barely a crp elevation and the rash is bilateral. Pt's labs, vitals and clinical picture is not consistent with infection and it has not improved on abx likely for that reason. It is high risk for infection but not currently infected. Pt's non- compliance with her sleep apnea mask, her obesity and venous insufficiency is likely cause of her LE swelling. Discussed with her interventions to help decrease swelling and also importance of tx of her RODO. Pt reported she didn't have much help at home and that she had gotten weaker from in-activity. PT/OT jay recommended inpt rehab so pt was discharged to rehab. Discharge Plan - Med Rec/Dispo Truven Instructions: Cellulitis (GEN) Prescriptions: New Triamcinolone 0.1% Cream 15 G [Kenalog] 1 applic TOP TID tube Continue Sennosides/Docusate Sodium [Senna S Tablet] 2 tab PO BID #0 Gabapentin 300 mg PO BID #0 Aspirin 162 mg PO DAILY #0 Citalopram Hydrobromide [Celexa] 40 mg PO HS #0 Hydrocodone/Acetaminophen [Hydrocodon-Acetaminoph 7.5-325] 1 tab PO Q4H #90 Atorvastatin Calcium 20 mg PO HS #0 Furosemide 60 mg PO BID #0 Potassium Chloride 10 meq PO DAILY #0 Discontinued Ibuprofen [Ibuprofen Ib] 4 tab PO Q4H PRN PRN Reason: Pain cephALEXin [Cephalexin] 500 mg PO QID - Disposition 62 [place] [facility] [place] [place]
[2016-12-15] MEDS: ATORVASTATIN 20 MG TABLET PO SCH (22:11)
[2016-12-15] MEDS: CITALOPRAM 40 MG TABLET PO SCH (22:11)
[2016-12-16] MEDS: HYDROCODONE/APAP 7.5 MG/325 MG TABLET PO SCH ×6 (01:28→20:35)
[2016-12-16] MEDS: SALINE FLUSH 10ml SYRINGE IV PRN ×2 (04:21→20:34)
[2016-12-16] MEDS: NICOTINE 21 MG PATCH TD SCH (08:55)
[2016-12-16] MEDS: SENNA + DOCUSATE TABLET PO SCH ×2 (08:55→20:35)
[2016-12-16] MEDS: GABAPENTIN 300 MG CAPSULE PO SCH ×2 (08:56→20:35)
[2016-12-16] MEDS: ASPIRIN 81 MG CHEWABLE TABLET PO SCH (08:56)
[2016-12-16] MEDS: BISACODYL E.C. 5 MG TABLET PO SCH ×2 (08:56→20:35)
[2016-12-16] MEDS: FUROSEMIDE 40 MG TABLET PO SCH ×2 (08:56→16:53)
[2016-12-16] MEDS: TRIAMCINOLONE 0.1% CREAM 15 G TUBE TOP SCH ×3 (08:57→20:37)
[2016-12-16] MEDS: NICOTINE PATCH REMOVAL TD SCH (08:57)
[2016-12-16] MEDS: BISACODYL 10 MG SUPPOSITORY RECTALLY SCH (08:57)
--- NOTE | 2016-12-16 15:37 | Progress Note ---
Subjective: Pt reports her LE swelling and redness seems to be better, denies any cp, sob, n /v/d, f/c. Objective Vital signs: Temp Pulse Resp BP Pulse Ox 97.1 F 90 20 126/79 93 12/16/16 07:25 12/16/16 07:45 12/16/16 07:25 12/16/16 07:25 12/16/16 07:45 Weight: 103.4 kg - Constitutional Present: no acute distress, well nourished, well developed - Routine Respiratory Exam Present: CTA bilaterally. Absent: wheezes - Routine Cardiovascular Exam Present: RRR, no murmur - Routine Abdominal Exam Present: soft, non tender - Routine Extremities Exam Present: edema. Absent: cyanosis, clubbing Results - Labs CBC & Chem 7: 12/14/16 04:32 12/14/16 04:32 Assessment and Plan (1) Stasis dermatitis Current visit: Yes Status: Chronic (2) Right hip pain Current visit: Yes Status: Chronic (3) Sciatica of right side Current visit: Yes Status: Chronic (4) Venous stasis of both lower extremities Current visit: Yes Status: Chronic (5) COPD (chronic obstructive pulmonary disease) Current visit: Yes Status: Chronic (6) Hypertension Current visit: Yes Status: Chronic (7) Sleep apnea Current visit: Yes Status: Chronic (8) Tobacco dependence Current visit: Yes Status: Chronic Assessment and Plan: Stasis Dermatitis -Some concern for neuropathy component making it worse -No other clear etiology for LE swelling other then venous insufficiency, obesity and RODO, echo was mostly unremarkable, no liver or renal dysfunction suspected -Labs, clinical picture not consistent with infection so will hold off on abx -Pt reports she cannot tolerate any further increase in her gabapentin -Will do tx for statis dermatitis with triamcinolone cream, can consider systemic steroids -Will do work up-->HIV Neg, B12/folate wnls but b12 low end of normal so will do MMA/Homocyst, TSH wnl, CRP 16, PERLA pending, Hep panel negative -Discussed with pt-->Need for RODO control, elevation of legs, compression stockings Generalized Weaness -PT/OT recommends inpt rehab, will try to work on placement Chronic Right Hip pain -xray shows severe arthritis -PT/OT, supportive tx Constipation -Resolved -Likely 2/2 opiate use, bowel regimen Ppx -DVT-lovenox Sepsis Assessment - Evaluation Sepsis screening result: No Definite Risk - Focused Exam Vital Signs Temp Pulse Resp BP Pulse Ox 12/16/16 07:45 90 93 12/16/16 07:25 97.1 F 80 20 126/79 95 Respiratory exam: Present: CTA bilaterally Cardiovascular exam: Present: RRR, S1, S2 Hospital Course Summary Disclaimer: The visit summary below is not to be considered part of the above Progress Note. Hospital Course: has been admitted multiple times for "cellulitis" and also has been prescribed multiple courses of abx as outpatient in the last 6-8 months for her LE swelling and redness. The abx have not helped. Pt has had chronic LE swelling for >1yr and the erythema has also been present for 6mos-1yr. This is likely statis dermatitis and chronic inflammation and not an acute infection. Pt has no WBC elevation, no fever, no procalcitonin elevation, barely a crp elevation and the rash is bilateral. Pt's labs, vitals and clinical picture is not consistent with infection and it has not improved on abx likely for that reason. It is high risk for infection but not currently infected. Pt's non- compliance with her sleep apnea mask, her obesity and venous insufficiency is likely cause of her LE swelling. Discussed with her interventions to help decrease swelling and also importance of tx of her RODO. Pt reported she didn't have much help at home and that she had gotten weaker from in-activity. PT/OT jay recommended inpt rehab so pt was discharged to rehab.
[2016-12-16] MEDS: CITALOPRAM 40 MG TABLET PO SCH (20:35)
[2016-12-16] MEDS: ATORVASTATIN 20 MG TABLET PO SCH (20:35)
[2016-12-17] MEDS: HYDROCODONE/APAP 7.5 MG/325 MG TABLET PO SCH ×3 (00:36→09:16)
[2016-12-17] MEDS ORDERED: ENOXAPARIN 40 MG/0.4 ML INJECTION SQ SCH (09:00)
[2016-12-17] MEDS: NICOTINE 21 MG PATCH TD SCH (09:14)
[2016-12-17] MEDS: NICOTINE PATCH REMOVAL TD SCH (09:15)
[2016-12-17] MEDS: BISACODYL 10 MG SUPPOSITORY RECTALLY SCH (09:16)
[2016-12-17] MEDS: FUROSEMIDE 40 MG TABLET PO SCH (09:17)
[2016-12-17] MEDS: SENNA + DOCUSATE TABLET PO SCH (09:18)
[2016-12-17] MEDS: BISACODYL E.C. 5 MG TABLET PO SCH (09:18)
[2016-12-17] MEDS: GABAPENTIN 300 MG CAPSULE PO SCH (09:18)
[2016-12-17] MEDS: ASPIRIN 81 MG CHEWABLE TABLET PO SCH (09:23)
[2016-12-17] MEDS: TRIAMCINOLONE 0.1% CREAM 15 G TUBE TOP SCH (09:25)
--- NOTE | 2016-12-17 12:34 | Discharge Summary ---
Discharge Plan - Med Rec/Dispo Referrals/Follow Up: Leonides Marie MD [Primary Care Provider] - 1 Week () Roger Instructions: Cellulitis (GEN), Stasis Dermatitis (GEN), Sleep Apnea ( GEN) Prescriptions: New Triamcinolone 0.1% Cream 15 G [Kenalog] 1 applic TOP TID tube Nicotine Patch [Nicoderm] 21 mg TD DAILY patch Polyethylene Glycol 3350 [Miralax] 17 gm PO AM #30 powd.pack Bisacodyl Supp [Dulcolax] 10 mg RECTALLY DAILY PRN #10 supp PRN Reason: Constipation Hydrocodone/APAP 7.5/325 [[place] 7.5/325] 1 tab PO Q4H #40 Nicotine Patch Removal 1 removal TD DAILY patch Continue Sennosides/Docusate Sodium [Senna S Tablet] 2 tab PO BID #0 Gabapentin 300 mg PO BID #0 Aspirin 162 mg PO DAILY #0 Citalopram Hydrobromide [Celexa] 40 mg PO HS #0 Atorvastatin Calcium 20 mg PO HS #0 Furosemide 60 mg PO BID #0 Potassium Chloride 10 meq PO DAILY #0 Discontinued Hydrocodone/Acetaminophen [Hydrocodon-Acetaminoph 7.5-325] 1 tab PO Q4H #90 Ibuprofen [Ibuprofen Ib] 4 tab PO Q4H PRN PRN Reason: Pain cephALEXin [Cephalexin] 500 mg PO QID - [facility]position [facility] ([facility])
--- NOTE | 2016-12-17 12:56 | Extended Care Facility Orders ---
Admission Orders Admit to:: Intermediate Allergies/Adverse Reactions: Allergies amoxicillin Allergy (Unknown, Verified 12/13/16 11:13) ampicillin Allergy (Unknown, Verified 12/13/16 13:30) codeine Allergy (Unknown, Verified 12/13/16 11:13) Estrogens Allergy (Unknown, Verified 12/13/16 11:13) levofloxacin Allergy (Unknown, Verified 12/13/16 11:13) Penicillins Allergy (Unknown, Verified 12/13/16 11:13) Sulfa (Sulfonamide Antibiotics) Allergy (Unknown, Verified 12/13/16 11:13) varenicline Allergy (Unknown, Verified 12/13/16 11:13) bupropion HCl Allergy (Unknown, Uncoded 12/13/16 09:30) Admitting Diagnosis: Cellulitis lower extremities Admitting Physician: Frederick Harrison MD Attending Physician: Frederick Harrison MD Code Status: full code Anticiapted Length of Stay: 30 days or less Rehab Potential: good Rehab Prognosis: good Diet: regular Wound/Incision Care: triamcinalone oinment to lower extremities three times daily; no open wounds. Elevate legs as much as possible. May use Facility Protocol or Standing Orders: Yes May have flu vaccine: Yes Evaluations/Treatment: PT, OT Intermediate Certification: I certify that SNF services are required to be given on an Inpatient basis because of the patients need for fdc care on a continuing basis for the condition(s) for which he/she received inpatient hospital services prior to his/her transfer to the SNF. SNF inpatient care is necessary for the following reasons Indication for Intermediate: Med Admininistration, Teach Medication Management, Teach COPD Management, Other (strengthening and conditioning; ) - Additional Information In Event of Arrest: Start CPR,call 911,send patient to the ER Resident is Aware of Diagnosis: Yes Laboratory/Radiology: BMP, Mg in one week-diagnosis chronic lower extremity edema, monitor medications Referrals: Leonides Marie MD [Primary Care Provider] - 1 Week () Additional Orders: CPAP 12 cm pressure, 2 L supplemental oxygen with CPAP and titrate oxygen to O2 sat> 90% while awake; patient will benefit from sleep study in the near future
--- NOTE | 2016-12-17 13:19 | Discharge Summary ---
Discharge Information Date of admission: 12/13/16 09:35 Anticipated date of discharge: 12/17/16 Attending Physician: Frederick Harrison MD Primary care physician: Leonides Marie MD - Discharge Diagnosis (1) Venous stasis of both lower extremities Status: Chronic (2) Osteoarthritis of right hip Qualifiers: Osteoarthritis type: primary Qualified Code(s): M16.11 - Unilateral primary osteoarthritis, right hip Status: Chronic (3) Sciatica of right side Status: Chronic (4) Hypertension Status: Chronic (5) Sleep apnea Qualifiers: Sleep apnea type: obstructive Qualified Code(s): G47.33 - Obstructive sleep apnea (adult) (pediatric) Status: Chronic (6) COPD (chronic obstructive pulmonary disease) Qualifiers: COPD type: emphysema Emphysema type: unspecified Qualified Code(s): J43.9 - Emphysema, unspecified Status: Chronic (7) Tobacco dependence Status: Chronic (8) Debility Status: Acute - Laboratory Labs: 12/14/16 04:32 12/17/16 04:31 White count on admission 9.1 with 69% neutrophils, 15% lymphocytes, 9% monocytes , and 5% eosinophils. ESR 2, CRP 15.9, lactic acid 0.9, and procalcitonin <0.05 TSH 1.32, PERLA negative, acute hepatitis panel negative, HIV negative, A1c 5.4 on 12/14/16 Vitamin B-12 460, folic acid 10.2, homocystine 12.0. Methylmalonic acid pending at discharge - Radiology Radiology: 12/13/16 -Right tibia and fibula: No acute osseous abnormality. 12/13/16-Left tibia and fibula: No acute osseous abnormality. 12/13/16 x-ray pelvis with one view of the right hip demonstrated no acute fracture but severe osteoarthritis with [id number] appearance of both hips. There was osteonecrosis and flattening of the left femoral head. 12/13/16-KUB Nonobstructive nonspecific bowel gas pattern. Significantly increased colonic stool burden. History of Present Illness HPI: Gege is a 71-year-old female who is well known to the hospitalist services from previous admissions. She was seen on 12/08/16 at the emergency room with "sciatica pain and lower extremity cellulitis. She was started on Keflex 4 times a day 1 week and was also given [place] for pain control. Since that time, pain has persisted in the right hip radiating down the right leg. She continues to have bilateral lower extremity erythema and swelling. Today, pain got so severe she presented to the emergency room for further acute evaluation and treatment. Further evaluation including laboratory studies and x-ray were obtained. WBC was found to be normal at 9.1, hemoglobin 14.6, hematocrit 44.4, platelet count 252, 69% neutrophils. Sodium is 144, potassium 4.1, BUN 13, creatinine 0.9. In this lactate is normal 0.7. Pro-calcitonin is undetectable, less than 0.05. She is afebrile at 96.0, pulse 89, respiration rate 24, blood pressure was elevated 186/93. A tib-fib x-ray was obtained that did not show any osseous abnormality. She was given IV fluids as well as vancomycin for antimicrobial coverage in the emergency room. Given swelling of lower extremities accompanied with significant pain . The hospitalist services were contacted and accepted patient for outpatient admission Patient is seen on initial examination on arrival to the medical floor. She is alert, oriented and extremely anxious. Clinically patient appears similar to prior admission in June 2016 at which time she did have chronic venous stasis of the bilateral lower extremities. Her new complaint is pain in the right hip as she did "bump" the side of her hip 3 days ago. She has pain that radiates down her leg. Has been using [place] at home without relief. Her does verbalize that he is concerned for the severity of her discomfort and he is unable to care for her at home all the time. Did discuss advanced directives and patient does verify she wishes to be a full code 12/15/16 15:29 Hospital Course Hospital course: Ms. Murray has been admitted multiple times for "cellulitis" and also has been prescribed multiple courses of abx as outpatient in the last 6-8 months for her LE swelling and redness. The abx have not helped. Pt has had chronic LE swelling for >1yr and the erythema has also been present for 6mos-1yr. This is likely statis dermatitis and chronic inflammation and not an acute infection. Pt has no WBC elevation, no fever, no procalcitonin elevation, minimal crp elevation and the rash is bilateral. Pt's labs, vitals and clinical picture are not consistent with infection and it has not improved on abx likely for that reason. She is at high risk for infection but not currently infected. Pt's non- compliance with her sleep apnea mask (which she reports she no longer has), her obesity and venous insufficiency is likely cause of her LE swelling. Discussed with her interventions to help decrease swelling and also importance of tx of her RODO. CPAP resumed during hospital stay with pressure of 12 cm in conjunction with 2 L oxygen while awake and at night. Patient's legs were elevated when possible during the day. Triamcinolone ointment continued to lower extremities 3 times daily. Edema/erythema improved as did lower extremity pain without antibiotics. On 12/15 discharge to rehabilitation was anticipated but insurance approved snf only after which discharged [facility] was coordinated for 12/17. On the date of discharge the patient had no particular concerns other than feeling stiff. Edema in the lower extremities improved significantly as had erythema by her report. +1 edema persisted and there was mild generalized erythema of the distal third of both lower extremities. Patient is discharged [facility] snf at this time for strengthening and conditioning. Outpatient sleep study strongly recommended. She'll be discharged with CPAP at 12 cm in the intervening time. Patient is asked to follow-up with Dr. Marie or covering physician within one week. Electrolytes will be reassessed in one week due to chronic diuretic use. >30 minutes spent on patient care and discharge care coordination today on the date of discharge. -- Discharge Plan - Med Rec/Dispo Referrals/Follow Up: Leonides Marie MD [Primary Care Provider] - 1 Week () Roger Instructions: Sleep Apnea (GEN), Cellulitis (GEN), Stasis Dermatitis ( GEN) Prescriptions: New Triamcinolone 0.1% Cream 15 G [Kenalog] 1 applic TOP TID tube Nicotine Patch [Nicoderm] 21 mg TD DAILY patch Polyethylene Glycol 3350 [Miralax] 17 gm PO AM #30 powd.pack Bisacodyl Supp [Dulcolax] 10 mg RECTALLY DAILY PRN #10 supp PRN Reason: Constipation Hydrocodone/APAP 7.5/325 [[place] 7.5/325] 1 tab PO Q4H #40 Nicotine Patch Removal 1 removal TD DAILY patch Continue Sennosides/Docusate Sodium [Senna S Tablet] 2 tab PO BID #0 Gabapentin 300 mg PO BID #0 Aspirin 162 mg PO DAILY #0 Citalopram Hydrobromide [Celexa] 40 mg PO HS #0 Atorvastatin Calcium 20 mg PO HS #0 Furosemide 60 mg PO BID #0 Potassium Chloride 10 meq PO DAILY #0 Discontinued Hydrocodone/Acetaminophen [Hydrocodon-Acetaminoph 7.5-325] 1 tab PO Q4H #90 Ibuprofen [Ibuprofen Ib] 4 tab PO Q4H PRN PRN Reason: Pain cephALEXin [Cephalexin] 500 mg PO QID - [facility]position 03 To [facility] ([facility])
--- NOTE | 2016-12-17 13:45 | Discharge Summary ---
Discharge Plan - Med Rec/Dispo Referrals/Follow Up: Leonides Marie MD [Primary Care Provider] - 1 Week () Roger Instructions: Sleep Apnea (GEN), Cellulitis (GEN), Stasis Dermatitis ( GEN) Prescriptions: New Triamcinolone 0.1% Cream 15 G [Kenalog] 1 applic TOP TID tube Nicotine Patch [Nicoderm] 21 mg TD DAILY patch Polyethylene Glycol 3350 [Miralax] 17 gm PO AM #30 powd.pack Bisacodyl Supp [Dulcolax] 10 mg RECTALLY DAILY PRN #10 supp PRN Reason: Constipation Hydrocodone/APAP 7.5/325 [[place] 7.5/325] 1 tab PO Q4H #40 Nicotine Patch Removal 1 removal TD DAILY patch Continue Sennosides/Docusate Sodium [Senna S Tablet] 2 tab PO BID #0 Gabapentin 300 mg PO BID #0 Aspirin 162 mg PO DAILY #0 Citalopram Hydrobromide [Celexa] 40 mg PO HS #0 Atorvastatin Calcium 20 mg PO HS #0 Furosemide 60 mg PO BID #0 Potassium Chloride 10 meq PO DAILY #0 Discontinued Hydrocodone/Acetaminophen [Hydrocodon-Acetaminoph 7.5-325] 1 tab PO Q4H #90 Ibuprofen [Ibuprofen Ib] 4 tab PO Q4H PRN PRN Reason: Pain cephALEXin [Cephalexin] 500 mg PO QID - Disposition 03 To [facility] ([facility])
== END 2016-12-17 15:35 ==
LOC: ED 07:09 → MED 07:09
PROVIDERS: ADMIT Internal Medicine; ATTEND Hospitalist

== ENCOUNTER 2017-04-02 07:00 | Inpatient (IN) ==
[~2017-04-02 07:00] MED LIST changes: +ACETAMINOPHEN 500 MG TABLET PO ONE; -ASPI81TA2 PO; -ATOR20TA59 PO; -CITA40TA14 PO; +CLINDAMYCIN PB 900 MG/50 ML BAG IV ONE; -CRAN1CAP6 PO; +DEXAMETHASONE 4 MG/ML INJECTION IVP ONE; -DICY10CA13 PO; +FAMOTIDINE PB 20 MG/50 ML BAG IV ONE; -FURO40TA5 PO; -GABA-338 PO; -HYDR-3989 PO; -IBUP-1724 PO; +LIDOCAINE 1% (10mg/ml) 2mL INJ PF SDV ID ONE; +MELOXICAM 15 MG TABLET PO ONE; +METOCLOPRAMIDE 10mg/2ml INJECTION IVP ONE; +NOZIN NASAL SWAB NAS ONE; +ONDANSETRON 4 MG/2 ML INJECTION IVP ONE; -POTA10CA37 PO; -SENN1TAB79 PO
[2017-04-02 07:26] VITALS: BMI 39.8
[2017-04-02] MEDS: LR 1,000 ML IV SCH ×2 (07:44→09:29)
[2017-04-02] MEDS ORDERED: EPINEPHrine 0.25 MG, BUPIVACAINE 0.25% PF 30 ML, MORPHINE SULFATE 15 MG, KETOROLAC INJ ... OPSITE ONE (08:00)
[2017-04-02] MEDS ORDERED: VANCOMYCIN 1,000 MG INJECTION ONE (08:39)
--- NOTE | 2017-04-02 08:43 | Anesthesia Preoperative Report ---
Anesthesia Preoperative Record - Date and Time Date: 04/02/17 Preoperative Diagnosis: Lt BLANQUITA M16.12 Proposed Procedure: left total hip NPO Since Date: 04/01/17 NPO Since Time: 23:00 Allergies/Adverse Reactions: Allergies Allergy/AdvReac Type Severity Reaction Status Date / Time amoxicillin Allergy Unknown Rash Verified 04/02/17 07:18 ampicillin Allergy Unknown Rash Verified 04/02/17 07:18 Estrogens Allergy Unknown Verified 04/02/17 07:18 Penicillins Allergy Unknown Rash Verified 04/02/17 07:18 Sulfa (Sulfonamide Allergy Unknown Rash Verified 04/02/17 07:18 Antibiotics) varenicline Allergy Unknown Verified 04/02/17 07:18 codeine AdvReac Unknown altered Verified 04/02/17 07:18 congnition levofloxacin AdvReac Unknown altered Verified 04/02/17 07:18 cognition bupropion HCl AdvReac Unknown altered Uncoded 04/02/17 07:18 cognitive state - Vital Signs Vital Signs: Temperature 98.2 F 04/02/17 07:21 Pulse Rate 76 04/02/17 07:38 Respiratory Rate 18 04/02/17 07:21 Blood Pressure 132/76 04/02/17 07:21 Pulse Oximetry 94 04/02/17 07:21 Height and Weight: Height 5 ft 3 in Weight 102 kg Body Mass Index 39.8 - Medications Inpatient Medications: Current Medications Lactated Ringer's (Lactated Ringers) 1,000 mls @ 50 mls/hr IV .Q20H MEREDITH Last Admin: 04/02/17 07:44 Dose: 50 mls/hr Epinephrine HCl 0.25 mg/Bupivacaine HCl 30 ml/Morphine Sulfate 15 mg/Ketorolac Tromethamine 60 mg/Sodium Chloride 65.25 mls @ 1 mls/hr OPSITE INTRAOP ONE PRN Reason: Protocol Stop: 04/05/17 01:14 Sodium Chloride (Iv Flush) 10 - 80 ml IV PRN PRN PRN Reason: Flushing Home Medications: Home Medications Medication Instructions Recorded Confirmed Type Gabapentin 300 mg PO TID #0 04/10/15 04/02/17 History Atorvastatin Calcium 20 mg PO HS #0 09/20/15 04/02/17 History Aspirin 162 mg PO DAILY #0 09/24/15 04/01/17 History Potassium Chloride 10 meq PO DAILY #0 10/30/16 04/02/17 History Cranberry Fruit [Cranberry] 2 tab PO AC 02/12/17 04/02/17 History Sennosides/Docusate Sodium 2 each PO DAILY 02/24/17 04/02/17 History [Senna-S Tablet] Citalopram Hydrobromide [Celexa] 60 mg PO HS 02/28/17 04/02/17 History Furosemide [Lasix] 1 tab PO BID 02/28/17 04/02/17 History Hydrocodone/Acetaminophen 1 tab PO Q4-6HPRN PRN 02/28/17 04/02/17 History [Hydrocodon-Acetaminophen 5-325] Acetaminophen [Tylenol] 500 - 1,000 mg PO Q6HPRN PRN 03/31/17 04/02/17 History Dicyclomine [Bentyl] 10 mg PO QID 03/31/17 04/02/17 History Ibuprofen 400 - 600 mg PO Q6HPRN PRN 03/31/17 04/02/17 History Is Patient on Beta Roshan?: No - Medical History Respiratory: Reports: Chronic Obstructive Pulmonary Disease (COPD) (home O2 at night) Cardiovascular: Reports: Hypertension DENIES: Angina (states she had arm pain, cardiac cath done and negative), Coronary Artery Disease Gastrointestional: DENIES: Gastroesophageal Reflux Disease Renal/Endocrine: DENIES: Diabetes Mellitus Type 2 Other History: DENIES: Anesthesia Reactions - Surgical History Neurological Surgeries: Reports: Other (Exc tumor of cervical spine 1998) Cardiac Surgeries/Treatments: Reports: Cardiac Catheterization Respiratory Surgery/Treatments: Reports: Oxygen Administration Endocrine Surgery/Treatments: Reports: Other (abnormal blood glucose level) GI Surgery/Treatments: Reports: Cholecystectomy (1979), Colonoscopy (polyps), Other (Exc right groin cyst 2001) Reproductive Surgery/Treatment: Reports: Tubal Ligation (1979) Anesthesia Reactions: None Hx Family Anesthesia Reaction: No History of Motion Sickness: No - Social History Smoking Status: Former smoker Hx Chewing Tobacco Use: No Second Hand Exposure: No Substance Use Type: does not use Alcohol Intake Frequency: does not drink - Pertinent Findings Laboratory: CBC and BMP 04/02/17 08:01 BMP 04/02/17 08:01 Sodium 144 Potassium 4.1 Chloride 103 Carbon Dioxide 30 BUN 19.0 H Creatinine 0.7 Glucose 108 Calcium 9.6 EKG: Sinus Rhythm - Physical Exam Respiratory Exam: Present: lungs clear, bilateral breath sounds equal Cardiovascular Exam: Present: regular rate and rhythm - Airway Assessment Mallampati Score: II TMD: 3 Fingerbreadths Neck Extension: fair Teeth: upper dentures, lower dentures Overall Assessment: no airway concerns - ASA ASA Score: 3 - Plan Anesthesia: General TIVA, Neuroaxial - Discussion Discussion: Discussed risks/options/alternatives of anesthesia and questions answered. Patient consents. Nursing pain assessment noted. Present for Discussion: spouse Attestation Statement: Prior to the delivery of any anesthetic medication, I examined the patient, developed the plan, obtained the patient's consent and discussed the risk and benefits of the procedure with the patient/guardian. - Additional Information Seen by Anesthesia: Yes
[2017-04-02] MEDS ORDERED: MIDAZOLAM 2mg/2ml INJECTION IVP ONE (08:48)
[2017-04-02] MEDS ORDERED: PROPOFOL 500 MG/50 ML VIAL IV ONE (08:53)
[2017-04-02] MEDS ORDERED: EPHEDRINE 50mg/ml INJECTION ONE (08:55)
[2017-04-02] MEDS ORDERED: SALINE FLUSH 10ml SYRINGE ONE (08:55)
[2017-04-02] MEDS ORDERED: MIDAZOLAM 2mg/2ml INJECTION ONE (09:14)
[2017-04-02] MEDS: TRANEXAMIC ACID 1,000 MG in NS 100 ML IV ONE ×3 (09:26→14:08)
[2017-04-02] MEDS ORDERED: SALINE FLUSH 10ml SYRINGE IV PRN (09:28)
[2017-04-02] MEDS ORDERED: PROPOFOL 20 ML ONE (10:48)
[2017-04-02] MEDS: VANCOMYCIN 1,000 MG INJECTION IAR ONE ×2 (10:51→14:12)
--- NOTE | 2017-04-02 11:08 | Operative Note ---
- Procedure Preoperative Diagnosis: Left hip primary degenerative joint disease Postoperative Diagnosis: Same as preoperative diagnosis. Surgeon: Ricardo Blair MD Complications: None. Anesthesia: Spinal. Estimated Blood Loss: See Anesthesia Record. Fluids: Please see Anesthesia Record. Description of Procedure: Mrs. Murray and her left hip were identified and marked in the preoperative holding area. She was brought back to the operating suite and spinal anesthetic was administered. She was then placed in a lateral decubitus position with her left hip up. The left lower extremity was prepped and draped in my normal sterile fashion. Timeout was performed. The Epunchit robotic arm was used to assist with the surgery. A posterior approach was utilized. The patient's body habitus made the surgery significantly more difficult. An approximately 15 cm incision was made in the skin and dissection carried down to the muscle fascia which was then split in line with skin incision. A checkpoint was placed in the greater trochanter. The short external rotators were identified and tagged and detached. A capsulotomy was performed and the hip dislocated. A femoral neck osteotomy was performed at the pre- templated level measuring down from the femoral head. The head was removed and acetabulum exposed. Labrum was removed. A checkpoint was placed superior to the acetabulum. The acetabulum was then registered with the robot. The robotic arm was then used to ream with a 51 reamer. The robot then was again used to place a 52 Trident cup in 40 of tilt and 25 of anteversion. A liner was then placed. The proximal femur was exposed and prepared with a cookie cutter followed by reaming and broaching to a size 6. We trialed with a 0 head. After thorough irrigation a final Accolade 2 size 6 stem with 127 neck was placed. Leg length and offset were checked with the robot and were good. We lengthened her a millimeters. A final 0 metal head was placed and the hip reduced. Betadine solution was used to irrigate throughout the case. It was followed by normal saline irrigation. Joint cocktail was injected throughout soft tissue. The capsulotomy was repaired with Ethibond. Short external rotators were also repaired with Ethibond. 1 g of vancomycin powder was placed into the wound. The muscle fascia was then repaired with #1 Vicryl. I then left my system to close the subcutaneous tissue with 2-0 Vicryl followed by running 4-0 Monocryl skin followed by an incisional wound VAC placed due to the patient's body habitus. The patient with any placed back into supine position and taken to recovery room in the care of anesthesia.
--- NOTE | 2017-04-02 11:20 | History & Physical Update ---
- History and Physical Update Date: 04/02/17 Update: I evaluated this patient and found no changes in the history and clinical exam findings. The treatment plan and recommendations are also unchanged from the previous documentation.
--- NOTE | 2017-04-02 11:58 | Anesthesia Postoperative Note ---
- Date and Time Date: 04/02/17 Time: 11:58 - Status Patient Participated in Evaluation: Patient Participated in Person Vital Signs: Temperature 97.5 F 04/02/17 11:26 Pulse Rate 86 04/02/17 11:45 Respiratory Rate 22 04/02/17 11:45 Blood Pressure 112/66 04/02/17 11:45 Pulse Oximetry 90 04/02/17 11:45 Respiratory Function: Airway Patent Cardiovascular Function: Regular Pulse EKG: Sinus Rhythm Mental Status: Alert and Oriented Pain Intensity: 0 Hydration: IV Infusing Complications During Recover: None Apparent - Follow-Up Instructions Instructions: Per Surgeon
--- NOTE | 2017-04-02 12:14 | XRay Report ---
Indication: postoperative image PROCEDURE: XR pelvis w/ 1 view LT hip: Encounter: Initial Comparison: December 13, 2016 Findings: Postoperative changes of left total hip replacement are seen. There is expected postoperative subcutaneous gas. No evidence of hardware failure or acute fracture. No retained radiopaque surgical instruments or sponges seen. Severe degenerative change in the right hip. Impression: New left total hip prosthesis without evidence of immediate complication. .
[2017-04-02] MEDS ORDERED: LORazepam 1 MG TABLET PO PRN (12:23)
[2017-04-02] MEDS ORDERED: ONDANSETRON 4 MG/2 ML INJECTION IVP PRN (12:23)
[2017-04-02] MEDS ORDERED: DiphenhydrAMINE 25 MG CAPSULE PO PRN (12:23)
[2017-04-02] MEDS ORDERED: DiphenhydrAMINE 50 MG/ML INJECTION IVP PRN (12:23)
[2017-04-02] MEDS ORDERED: IBUPROFEN 200 MG TABLET PO PRN (12:23)
[2017-04-02] MEDS ORDERED: NOZIN NASAL SWAB NAS ONE (12:23)
[2017-04-02] MEDS: NS 1,000 ML IV SCH (12:36)
[2017-04-02] MEDS: FUROSEMIDE 40 MG TABLET PO SCH (14:55)
[2017-04-02] MEDS: ACETAMINOPHEN 325 MG TABLET PO SCH ×3 (14:55→21:12)
[2017-04-02] MEDS: NOZIN NASAL SWAB NAS SCH ×2 (14:56→22:06)
[2017-04-02] MEDS: DICYCLOMINE 10mg CAPSULE PO SCH ×3 (14:56→21:10)
[2017-04-02] MEDS: CLINDAMYCIN PB 900 MG/50 ML BAG IV SCH ×2 (14:56→21:12)
[2017-04-02] MEDS: GABAPENTIN 300 MG CAPSULE PO SCH ×2 (14:56→21:12)
[2017-04-02] MEDS ORDERED: SENNOSIDES 8.6 MG TABLET PO SCH (21:00)
[2017-04-02] MEDS ORDERED: CITALOPRAM 20 MG TABLET PO SCH (21:00)
[2017-04-02] MEDS ORDERED: ATORVASTATIN 20 MG TABLET PO SCH (21:00)
[2017-04-02] MEDS: ASPIRIN *EC* 325 MG TABLET PO SCH (21:11)
[2017-04-02] MEDS: DOCUSATE SODIUM 100 MG CAPSULE PO SCH (21:12)
[2017-04-02] MEDS: Oxycodone *IR* 5 MG TABLET PO PRN (22:45)
[2017-04-03] MEDS: NS 1,000 ML IV SCH ×3 (02:15→15:18)
[2017-04-03] MEDS: CLINDAMYCIN PB 900 MG/50 ML BAG IV SCH (03:38)
[2017-04-03] MEDS: Oxycodone *IR* 5 MG TABLET PO PRN ×3 (03:49→15:22)
[2017-04-03] MEDS: NOZIN NASAL SWAB NAS SCH ×2 (06:12→13:12)
[2017-04-03] MEDS: DICYCLOMINE 10mg CAPSULE PO SCH ×2 (06:12→12:18)
--- NOTE | 2017-04-03 08:23 | Orthopedic Progress Note ---
Date: Subjective/Severity of Illness: Gege is doing well and pain is not too bad. She uses some O2 at night at home wants to get her CPAP working again. Denies any CP or cough. She was up with PT but feels she needs placement somewhere in place of going straight home. She will likely not qualify for IRU. [facility] is another option. Orthopedic Objective PO Vital signs: Temperature 97.6 F 04/03/17 07:55 Pulse Rate 77 04/03/17 07:55 Respiratory Rate 16 04/03/17 07:55 Blood Pressure 108/64 04/03/17 07:55 Pulse Oximetry 94 04/03/17 07:55 Height and Weight: Height 5 ft 3 in Weight 234 lb 12.677 oz Body Mass Index 39.8 - Constitutional General Appearance: Present: alert, no acute distress - Respiratory Exam Present: non-labored - Extremities Exam Extremities: Present: pulses intact, normal capillary refill. Absent: calf tenderness - Surgical Site Incision: clean, dry, intact, Mepilex dressing intact, no drainage - Neurological Exam Present: intact to light touch, no deficits - Psychiatric Exam Present: alert - Labs Result Diagrams: 04/03/17 03:55 04/03/17 03:55 Abnormal lab results 04/03/17 04/03/17 Range/Units 03:55 03:55 WBC 14.0 H (4.5-11.0) T/MM3 RBC 3.96 L (4.00-5.20) M/MM3 Hgb 10.3 L (12-16) GM/DL Hct 31.7 L (36-46) % BUN 23.0 H (7-17) MG/DL Glucose 112 H (65-110) MG/DL H & H 04/03/17 Range/Units 03:55 Hgb 10.3 L (12-16) GM/DL Hct 31.7 L (36-46) % Orthopedic Assessment and Plan (1) Primary osteoarthritis of left hip Status: Acute Assessment and Plan: Aspirin protocol for VTE prophylaxis. SCD's. PT/OT services to improve independent function. Discharge Planning per Case Management. Considering [facility] vs [facility]. - Anticoagulation Therapy Anticoagulation: ASA 325 mg PO BID x6 weeks Hospital Course Summary Disclaimer: The visit summary below is not to be considered part of the above Progress Note.
--- NOTE | 2017-04-03 08:25 | Discharge Summary ---
Orthopedic Discharge Info Date of admission: 04/02/17 07:00 Primary care physician: MD Yazmin Ramachandran MD Attending Physician: Micheal Blair MD Consults: 04/02/17 IRU Screening [Inpatient Rehab Screening] [CONS] Routine Screen requested by:: Family/Patient Comment Text:: L BLANQUITA; POSSIBLE DC 04/03; [employer] 04/02/17 07:53 Consult to Anesthesiology [CONS] Routine Consulting Provider: TAMIKO Noble Reason For Exam: Preoperative Assessment 04/02/17 12:23 Case Management Consult [CONS] Routine Reason For Exam: Discharge Planning DME-Walker [CONS] Routine Height: 5 ft 3 in Weight: 224 lb 13.944 oz Comment: change dressing in 2 weeks Doctor [Physician Consult] [CONS] Routine Consulting Provider: Ethel Pollard Reason For Exam: CONT CARE Ordering Provider has Notified Toe Puncher: Yes Total Joint Outpatient Therapy [CONS] Routine Comment: change dressing in 2 weeks - Discharge Diagnosis (1) Primary osteoarthritis of left hip Status: Acute - Procedures Procedures: Lt BLANQUITA 04/02/17 - Laboratory Result Diagrams: 04/03/17 03:55 04/03/17 03:55 Laboratory: Abnormal lab results 04/03/17 04/03/17 Range/Units 03:55 03:55 WBC 14.0 H (4.5-11.0) T/MM3 RBC 3.96 L (4.00-5.20) M/MM3 Hgb 10.3 L (12-16) GM/DL Hct 31.7 L (36-46) % BUN 23.0 H (7-17) MG/DL Glucose 112 H (65-110) MG/DL H & H 04/03/17 Range/Units 03:55 Hgb 10.3 L (12-16) GM/DL Hct 31.7 L (36-46) % Orthopedic Discharge HPI - HPI Comments This patient was admitted for elective surgical tx of end stage degenerative joint disease that failed to respond to conservative treatment. Further details of this is found in the admission H&P. Orthopedic Hospital Course Hospital course: 04/03/17 08:24 After appropriate preoperative clearance and signing of operative consent, the patient was given IV antibiotics, according to orthopedic protocol. The patient was taken to the operating room and underwent elective left total hip arthroplasty. Following surgery, antibiotics were discontinued less than 24 hours according to joint protocol. Aspirin protocol was initiated and SCDs added for DVT prevention. The dressing was clean, dry, and intact. Pain control was obtained via multimodal approach. Bowel motivation addressed with scheduled and PRN medications. Early mobilization was initiated through PT services. Discharge arrangements made by a collaborative effort between the patient and Case Management. Follow-up is scheduled in 2-3 weeks. Discharge instructions given by orthopedic providers and nursing staff at discharge. Discharge condition was good. Ongoing care required?: No Discharge Plan - Med Rec/Dispo Referrals/Follow Up: Micheal Blair MD [Physician] - 04/27/17 3:00 pm Roger Instructions: [facility] Postop Instructions Prescriptions: New Aspirin *EC* [Ecotrin] 325 mg PO BID tablet Docusate Sodium [Colace] 100 mg PO BID capsule Milk of Magnesia [Mom] 30 ml PO DAILY udc Acetaminophen [Tylenol] 650 mg PO QID tablet Oxycodone *IR* [Roxicodone *Ir*] 5 - 15 mg PO Q3H PRN #60 tab PRN Reason: Pain Continue Gabapentin 300 mg PO TID #0 Cranberry Fruit [Cranberry] 2 tab PO AC Sennosides/Docusate Sodium [Senna-S Tablet] 2 each PO DAILY Citalopram Hydrobromide [Celexa] 60 mg PO HS Ibuprofen 400 - 600 mg PO Q6HPRN PRN PRN Reason: Pain Atorvastatin Calcium 20 mg PO HS #0 Potassium Chloride 10 meq PO DAILY #0 Furosemide [Lasix] 1 tab PO BID Acetaminophen [Tylenol] 500 - 1,000 mg PO Q6HPRN PRN PRN Reason: Pain Dicyclomine [Bentyl] 10 mg PO QID Discontinued Aspirin 162 mg PO DAILY #0 Hydrocodone/Acetaminophen [Hydrocodon-Acetaminophen 5-325] 1 tab PO Q4-6HPRN PRN PRN Reason: Pain - Disposition 03 To SNU Not [facility] (SNF)
[2017-04-03] MEDS ORDERED: POLYETHYL GLYCOL 3350 17gm PACKET PO SCH (09:00)
[2017-04-03] MEDS: DOCUSATE SODIUM 100 MG CAPSULE PO SCH (09:06)
[2017-04-03] MEDS: FUROSEMIDE 40 MG TABLET PO SCH (09:06)
[2017-04-03] MEDS: ASPIRIN *EC* 325 MG TABLET PO SCH (09:06)
[2017-04-03] MEDS: GABAPENTIN 300 MG CAPSULE PO SCH ×2 (09:07→15:19)
[2017-04-03] MEDS: ACETAMINOPHEN 325 MG TABLET PO SCH ×2 (09:07→13:12)
[2017-04-03] MEDS ORDERED: SENNOSIDES 8.6 MG TABLET PO PRN (11:21)
[2017-04-03 13:08] VITALS: BP 119/87; PULSE 80; RESP 18; TEMP 96.6; O2SAT 91
--- NOTE | 2017-04-03 13:40 | Extended Care Facility Orders ---
Admission Orders Admit to:: Jail Allergies/Adverse Reactions: Allergies amoxicillin Allergy (Unknown, Verified 04/02/17 07:18) Rash ampicillin Allergy (Unknown, Verified 04/02/17 07:18) Rash Estrogens Allergy (Unknown, Verified 04/02/17 07:18) Penicillins Allergy (Unknown, Verified 04/02/17 07:18) Rash Sulfa (Sulfonamide Antibiotics) Allergy (Unknown, Verified 04/02/17 07:18) Rash varenicline Allergy (Unknown, Verified 04/02/17 07:18) codeine Adverse Reaction (Unknown, Verified 04/02/17 07:18) altered congnition levofloxacin Adverse Reaction (Unknown, Verified 04/02/17 07:18) altered cognition bupropion HCl Adverse Reaction (Unknown, Uncoded 04/02/17 07:18) altered cognitive state Admitting Diagnosis: Lt BLANQUITA M16.12 Admitting Physician: Micheal Blair MD Attending Physician: Micheal Blair MD Anticiapted Length of Stay: 30 days or less Rehab Potential: good Rehab Prognosis: good Diet: 04/02/17 Lunch Regular Diet [DIET] Diet Modifications: Wound/Incision Care: Notify Dr Blair of any concerns. Keep the dressings dry. Do not remove the Vac dressing. I need to see her in the office next week to remove the Vac dressing. The upper dressing on the pelvic rim can be changed PRN. May use Facility Protocol or Standing Orders: Yes May have flu vaccine: Yes Evaluations/Treatment: PT (ROM / Exercises / strengthening / WBAT), OT Jail Certification: I certify that SNF services are required to be given on an Inpatient basis because of the patients need for care home care on a continuing basis for the condition(s) for which he/she received inpatient hospital services prior to his/her transfer to the SNF. SNF inpatient care is necessary for the following reasons Indication for Jail: Postop Assessment Care - Additional Information In Event of Arrest: Start CPR,call 911,send patient to the ER Resident is Aware of Diagnosis: Yes Referrals: Micheal Blair MD [Physician] - 04/27/17 3:00 pm Additional Orders: Encourage I.S. QID. Use oxygen at 2L NC at night and with naps. Pt has RODO. Elevate the leg to control swelling. Make F/U appt with Tanner Martin in 1 week for removal of the vac dressing.
[2017-04-04] MEDS ORDERED: BISACODYL 10 MG SUPPOSITORY RECTALLY SCH (20:00)
== END 2017-04-03 15:35 | DRG 470 ==
LOC: SRG 07:00
PROVIDERS: ADMIT Orthopaedic Surgery; ATTEND Orthopaedic Surgery

== ENCOUNTER 2017-08-04 07:30 | Inpatient (IN) ==
[2017-08-06] MEDS ORDERED: ONDANSETRON 4 MG/2 ML INJECTION IVP ONE (06:00)
[2017-08-06] MEDS ORDERED: ACETAMINOPHEN 500 MG TABLET PO ONE (06:00)
[2017-08-06] MEDS ORDERED: METOCLOPRAMIDE 10mg/2ml INJECTION IVP ONE (06:00)
[2017-08-06] MEDS ORDERED: FAMOTIDINE PB 20 MG/50 ML BAG IV ONE (06:00)
[2017-08-06] MEDS ORDERED: MELOXICAM 15 MG TABLET PO ONE (06:00)
[2017-08-06] MEDS ORDERED: LIDOCAINE 1% (10mg/ml) 2mL INJ PF SDV ID ONE (06:00)
[2017-08-06] MEDS ORDERED: DEXAMETHASONE 4 MG/ML INJECTION IVP ONE (06:00)
[2017-08-06] MEDS ORDERED: TRANEXAMIC ACID 1,000 MG in NS 100 ML IV ONE ×2 (06:00→07:00)
[2017-08-06] MEDS ORDERED: EPINEPHrine PF 0.25 MG, BUPIVACAINE 0.25% PF 30 ML, MORPHINE SULFATE 15 MG, KETOROLAC I... OPSITE ONE (08:00)
[2017-08-06 08:28] VITALS: BMI 39.2
[2017-08-06] MEDS ORDERED: CEFAZOLIN 1 G INJECTION IVP ONE (08:29)
[2017-08-06] MEDS ORDERED: VANCOMYCIN 1,000 MG INJECTION ONE (09:27)
--- NOTE | 2017-08-06 09:54 | Anesthesia Preoperative Report ---
Anesthesia Preoperative Record - Date and Time Date: 08/06/17 Preoperative Diagnosis: Rt BLANQUITA M16.11 Proposed Procedure: Right Total Hip Arthroplasty Allergies/Adverse Reactions: Allergies Allergy/AdvReac Type Severity Reaction Status Date / Time Estrogens Allergy Severe Swelling Verified 08/06/17 08:19 lorazepam [From Ativan] Allergy Severe Behavior Verified 08/06/17 08:19 Disturbance varenicline Allergy Severe hallucinati Verified 08/06/17 08:19 ons Penicillins Allergy Mild Rash Verified 08/06/17 08:19 amoxicillin Allergy Unknown Rash Verified 08/06/17 08:19 ampicillin Allergy Unknown Rash Verified 08/06/17 08:19 Sulfa (Sulfonamide Allergy Unknown Rash Verified 08/06/17 08:19 Antibiotics) codeine AdvReac Unknown altered Verified 08/06/17 08:19 congnition levofloxacin AdvReac Unknown altered Verified 08/06/17 08:19 cognition bupropion HCl AdvReac Unknown altered Uncoded 08/06/17 08:19 cognitive state - Vital Signs Vital Signs: Temperature 98.5 F 08/06/17 08:28 Pulse Rate 73 08/06/17 08:30 Respiratory Rate 15 08/06/17 08:28 Blood Pressure 161/75 H 08/06/17 08:28 Pulse Oximetry 97 08/06/17 08:28 Height and Weight: Height 1.6 m Weight 100.3 kg Body Mass Index 39.2 - Medications Inpatient Medications: Current Medications Lactated Ringer's (Lactated Ringers) 1,000 mls @ 50 mls/hr IV .Q20H [facility] Last Admin: 08/06/17 08:53 Dose: 50 mls/hr Epinephrine HCl 0.25 mg/Bupivacaine HCl 30 ml/Morphine Sulfate 15 mg/Ketorolac Tromethamine 60 mg/Sodium Chloride 65.25 mls @ 1 mls/hr OPSITE INTRAOP ONE PRN Reason: Protocol Stop: 08/09/17 01:14 Isopropyl Alcohol (Nozin Nasal Swab) 1 each SUKHJINDER Q1M [facility] Stop: 08/06/17 12:33 Sodium Chloride (Iv Flush) 10 - 80 ml IV PRN PRN PRN Reason: [place] Home Medications: Home Medications Medication Instructions Recorded Confirmed Type Atorvastatin Calcium 20 mg PO HS #0 09/20/15 08/06/17 History Furosemide [Lasix] 40 mg PO BID 02/28/17 08/06/17 History [place] 10 mg-acetaminophen 325 mg 1 tab PO Q6H PRN 30 Days #120 07/29/17 History tablet Citalopram [Celexa] 60 mg PO DAILY 08/03/17 08/06/17 History Cranberry Fruit [Cranberry] 400 mg PO DAILY 08/03/17 08/06/17 History Milk of Magnesia [Mom] 30 ml PO PRN PRN 08/06/17 08/06/17 History Is Patient on Beta Roshan?: No - Medical History Respiratory: Reports: Chronic Obstructive Pulmonary Disease (COPD), Sleep Apnea (working with Dr Toribio to get a working CPAP) Cardiovascular: Reports: Hypertension, High Cholesterol DENIES: Angina (states she had arm pain, cardiac cath done and negative), Coronary Artery Disease Gastrointestional: Reports: Hiatal Hernia, Other (IBS w/constipation) DENIES: Gastroesophageal Reflux Disease Neuro/Musculoskeletal: Reports: HX.MS.OSAR, Back Problems (very painful, ineffective epidural injection), Depression Renal/Endocrine: DENIES: Diabetes Mellitus Type 2 Other History: DENIES: Anesthesia Reactions - Surgical History Neurological Surgeries: Reports: Other (Exc tumor of cervical spine 1998) Cardiac Surgeries/Treatments: Reports: Cardiac Catheterization Respiratory Surgery/Treatments: Reports: Oxygen Administration (at HS-2L/at times during day) GI Surgery/Treatments: Reports: Cholecystectomy (1979), Colonoscopy (polyps), Other (Exc right groin cyst 2001) Musculoskeletal Surgery/Tx: Reports: Total Hip Replacement (Lt BLANQUITA ) Reproductive Surgery/Treatment: Reports: Tubal Ligation (1979) Hx Family Anesthesia Reaction: No - Social History Smoking Status: Former smoker Hx Chewing Tobacco Use: No Second Hand Exposure: No Substance Use Type: does not use Alcohol Intake Frequency: does not drink - Pertinent Findings Laboratory: CBC and BMP 08/06/17 08:21 BMP 08/06/17 08:21 Sodium 143 Potassium 4.2 Chloride 100 Carbon Dioxide 35 H BUN 26.0 H Creatinine 0.8 Glucose 106 Calcium 9.4 EKG: Sinus Rhythm - Physical Exam Respiratory Exam: Present: lungs clear, decreased breath sounds-L, decreased breath sounds-R Cardiovascular Exam: Present: regular rate and rhythm - Airway Assessment Mallampati Score: II TMD: 3 Fingerbreadths Neck Extension: fair Overall Assessment: may be difficult intubation - ASA ASA Score: 3 - Plan Anesthesia: Neuroaxial - Discussion Discussion: Discussed risks/options/alternatives of anesthesia and questions answered. Patient consents. Nursing pain assessment noted. Present for Discussion: family member Attestation Statement: Prior to the delivery of any anesthetic medication, I examined the patient, developed the plan, obtained the patient's consent and discussed the risk and benefits of the procedure with the patient/guardian. - Additional Information Seen by Anesthesia: Yes
[2017-08-06] MEDS: NOZIN NASAL SWAB NAS SCH ×5 (09:56→21:23)
[2017-08-06] MEDS ORDERED: VANCOMYCIN 1,000 MG INJECTION IAR ONE (10:44)
[2017-08-06] MEDS ORDERED: MIDAZOLAM 2mg/2ml INJECTION ONE ×2 (11:00→11:01)
[2017-08-06] MEDS ORDERED: PROPOFOL 1,000 MG/100 ML VIAL ONE (11:00)
[2017-08-06] MEDS ORDERED: PROPOFOL 500 MG/50 ML VIAL ONE (12:24)
[2017-08-06] MEDS ORDERED: SALINE FLUSH 10ml SYRINGE IV PRN (12:26)
[2017-08-06] MEDS ORDERED: METOCLOPRAMIDE 10mg/2ml INJECTION IVP PRN (13:31)
[2017-08-06] MEDS ORDERED: ONDANSETRON 4 MG/2 ML INJECTION IVP PRN ×2 (13:31→14:35)
[2017-08-06] MEDS ORDERED: FentaNYL 100 MCG/2 ML INJECTION ONE (13:31)
--- NOTE | 2017-08-06 13:39 | Operative Note ---
- Procedure Preoperative Diagnosis: Right hip primary degenerative joint disease Postoperative Diagnosis: Same as preoperative diagnosis. Surgeon: Ricardo Blair MD Housing Installer: Tanner Martin Complications: Intraoperative greater trochanteric fracture Anesthesia: Spinal. Estimated Blood Loss: See Anesthesia Record. Fluids: Please see Anesthesia Record. Description of Procedure: Mrs. Murray and her right hip were identified and marked in the preoperative holding area. She was brought back to the operating suite and spinal anesthetic was administered. She was then placed in a lateral decubitus position with her right hip up. The right lower extremity was prepped and draped in my normal sterile fashion. Timeout was performed. The [employer] robotic arm was used to assist with the surgery. A pelvic array was placed into the iliac crest through three small incisions. A posterior approach was utilized. An approximately 14 cm incision was made in the skin and dissection carried down to the muscle fascia which was then split in line with skin incision. A Charnley retractor was placed. The short external rotators were identified and tagged and detached. A capsulotomy was performed and the hip dislocated. A femoral neck osteotomy was performed at the pre-templated level measuring down from the femoral head. The head was removed and acetabulum exposed. Labrum was removed. The acetabulum was then registered with the robot. The robotic arm was then used to ream with a 49 reamer. The robot then was again used to place a 50 Trident cup in 40 of tilt and 25 of anteversion. A liner was then placed. The proximal femur was exposed and prepared. I first used a cookie cutter followed by a lateralizing reamer. I began broaching with a size 0 and as I was removing the size 1 broach I noticed a fracture to the greater trochanter. I continued broaching to a size 6. We trialed with a standard head. This felt good and was stable but she was long so we switched to 127 neck and a -5 head and this gave good leg length and good stability throughout. After thorough irrigation a final Accolade 2 size 6 stem with 127 neck was placed. A -5 trial head was placed and the hip reduced. I then fixed the trochanteric fracture with a claw passing 2 cables around the lesser trochanter. Intraoperative films were taken before the wires were clamped. The wires were then tightened and clamped in place. A final -5 metal 36 mm head was then placed. Leg length and offset were checked and were good. Betadine solution was used to irrigate throughout the case. It was followed by normal saline irrigation. Joint cocktail was injected throughout soft tissue. The capsulotomy was repaired with Ethibond. Short external rotators were also repaired with Ethibond. 1 g of vancomycin powder was placed into the wound. The muscle fascia was then repaired with #1 Vicryl. I then left my human resources office assistant to close the subcutaneous tissue with 2-0 Vicryl followed by running 4-0 Monocryl skin followed by Dermabond and a sterile dressing. The patient with any placed back into supine position and taken to recovery room in the care of anesthesia.
[2017-08-06] MEDS ORDERED: PROPOFOL 20 ML ONE ×2 (13:44→13:54)
[2017-08-06] MEDS ORDERED: PROPOFOL 60 ML ONE (13:44)
[2017-08-06] MEDS: FentaNYL 100 MCG/2 ML INJECTION IVP PRN ×2 (14:12→14:21)
--- NOTE | 2017-08-06 14:20 | Anesthesia Postoperative Note ---
- Date and Time Date: 08/06/17 Time: 14:20 - Status Patient Participated in Evaluation: Patient Participated in Person Vital Signs: Temperature 97.7 F 08/06/17 14:02 Pulse Rate 88 08/06/17 14:02 Respiratory Rate 16 08/06/17 14:02 Blood Pressure 129/73 08/06/17 14:02 Pulse Oximetry 99 08/06/17 14:02 Respiratory Function: Airway Patent Cardiovascular Function: Regular Pulse EKG: Sinus Rhythm Mental Status: Alert and Oriented Pain Intensity: 6 Hydration: IV Infusing Complications During Recover: None Apparent - Follow-Up Instructions Instructions: Per Surgeon
[2017-08-06] MEDS ORDERED: DiphenhydrAMINE 25 MG CAPSULE PO PRN (14:35)
[2017-08-06] MEDS ORDERED: NOZIN NASAL SWAB NAS ONE (14:35)
[2017-08-06] MEDS ORDERED: DiphenhydrAMINE 50 MG/ML INJECTION IVP PRN (14:35)
[2017-08-06] MEDS ORDERED: NAPROXEN 220 MG TABLET PO PRN (14:35)
[2017-08-06] MEDS: NS 1,000 ML IV SCH (14:40)
[2017-08-06] MEDS ORDERED: FALL RISK - PHARMACY CONSULT XX ONE (14:44)
[2017-08-06] MEDS ORDERED: LR 1,000 ML IV SCH (15:45)
--- NOTE | 2017-08-06 15:45 | XRay Report ---
EXAM: XR pelvis w/ 1 view RT hip COMPARISON: 06/08/2017. 05/20/2017. 04/02/2017. 03/18/2017. 12/13/2016. HISTORY: postoperative image . FINDINGS: Bilateral total hip prostheses are in place. The left femoral and acetabular components are intact and are in good stable position and alignment. Lesser and greater trochanteric fragments are again seen and are stable. The superior and inferior rami are intact. The right hip prosthesis is intact. IMPRESSION: Unremarkable stable appearance to the left hip prosthesis without loosening, fracture or infection. [place] [facility] [place]
[2017-08-06] MEDS: ACETAMINOPHEN 325 MG TABLET PO SCH ×2 (16:24→21:22)
[2017-08-06] MEDS: Oxycodone *IR* 5 MG TABLET PO PRN ×2 (16:43→23:08)
[2017-08-06] MEDS: DEXAMETHASONE 20 MG/5 ML INJECTION IVP SCH (19:21)
[2017-08-06] MEDS: CEFAZOLIN 2 G in NS 50 ML IV SCH (19:22)
[2017-08-06] MEDS: ASPIRIN *EC* 81 MG TABLET PO SCH (21:22)
[2017-08-06] MEDS: FUROSEMIDE 40 MG TABLET PO SCH (21:22)
[2017-08-06] MEDS: DOCUSATE SODIUM 100 MG CAPSULE PO SCH (21:22)
[2017-08-06] MEDS: ATORVASTATIN 20 MG TABLET PO SCH (21:22)
[2017-08-06] MEDS: SENNOSIDES 8.6 MG TABLET PO SCH (21:23)
[2017-08-07] MEDS: CEFAZOLIN 2 G in NS 50 ML IV SCH (02:31)
[2017-08-07] MEDS: DEXAMETHASONE 20 MG/5 ML INJECTION IVP SCH (02:31)
[2017-08-07] MEDS: Oxycodone *IR* 5 MG TABLET PO PRN ×5 (02:40→23:06)
[2017-08-07] MEDS: NS 1,000 ML IV SCH (04:23)
[2017-08-07] MEDS: NOZIN NASAL SWAB NAS SCH ×4 (06:14→21:46)
--- NOTE | 2017-08-07 08:02 | Orthopedic Progress Note ---
Date: Date: 08/07/17 Time: 756 Subjective/Severity of Illness: Gege reports pain in her non-operative hip from lying on that side. She was up to the hallway and back last night with good tolerance. Labs show BUN increased from 26 to 36 and creat 0.8 to 1.0 . Additionally her K + is 5.1 and Hgb 11.2 . She is wanting placement somewhere instead of going home. She had anxiety with SOA when her said he was going to work and won't be sitting with her all day today. Gege uses Oxygen at home when sleeping and has a CPAP. She smoked for over 50yrs, but "quit" 6 months ago, although still smokes one of her husbands cigarettes once in a while. Denies CP or cough. No other concerns or complaints. Orthopedic Objective PO Vital signs: Temperature 98.1 F 08/07/17 07:36 Pulse Rate 74 08/07/17 07:36 Respiratory Rate 20 08/07/17 07:36 Blood Pressure 132/89 08/07/17 07:36 Pulse Oximetry 95 08/07/17 07:36 Height and Weight: Height 5 ft 3 in Weight 244 lb 11.41 oz Body Mass Index 39.2 - Constitutional General Appearance: Present: alert, cooperative, no acute distress - Respiratory Exam Present: non-labored - Cardiovascular Exam Present: pedal pulses intact - Extremities Exam Extremities: Present: pulses intact. Absent: calf tenderness - Surgical Site Incision: Mepilex dressing intact, no drainage - Neurological Exam Present: no deficits - Psychiatric Exam Present: alert, normal affect - Labs Result Diagrams: 08/07/17 04:05 08/07/17 04:05 Abnormal lab results 08/06/17 08/07/17 08/07/17 Range/Units 08:21 04:05 04:05 Hgb 11.1 L (12-16) GM/DL Hct 35.2 L (36-46) % Potassium 5.1 H D (3.6-5) MEQ/L Carbon Dioxide 35 H (22-30) MEQ/L BUN 26.0 H 36.0 H (7-17) MG/DL BUN/Creatinine Ratio 33 H 36 H (6-26) RATIO Glucose 183 H (65-110) MG/DL Calculated Osmolality 281 H (261-280) MOSM/KG H & H 08/07/17 Range/Units 04:05 Hgb 11.1 L (12-16) GM/DL Hct 35.2 L (36-46) % Orthopedic Assessment and Plan (1) Osteoarthritis of right hip Status: Chronic Qualifiers: Osteoarthritis type: primary Qualified Code(s): M16.11 - Unilateral primary osteoarthritis, right hip Assessment and Plan: Aspirin protocol for VTE prophylaxis x 6 weeks. SCD's and mobilization for added protection. PT/OT services to improve independent function. Must use a walker to off load the abductors x 6 weeks due to intraoperative fx of the greater trochanter. Discharge Planning per Case Management. Pt is hopeful for placement as she has several medical issues and debility. Hgb looks good at this time. K+ is a little high but should correct with PO Lasix that is ordered BID. Will recheck BMP at noon to watch trends on K+ and creat before considering discharge/placement. (2) Anxiety Status: Acute (3) Debility Status: Acute (4) Obesity, morbid, BMI 40.0-49.9 Status: Acute (5) COPD (chronic obstructive pulmonary disease) Status: Chronic Qualifiers: COPD type: emphysema Emphysema type: unspecified Qualified Code(s): J43.9 - Emphysema, unspecified Assessment and Plan: Uses Oxygen at home. (6) Hypertension Status: Chronic - Anticoagulation Therapy Anticoagulation: ASA 81 mg PO BID x6 weeks Hospital Course Summary Disclaimer: The visit summary below is not to be considered part of the above Progress Note.
[2017-08-07] MEDS: ACETAMINOPHEN 325 MG TABLET PO SCH ×4 (09:57→20:08)
[2017-08-07] MEDS: FUROSEMIDE 40 MG TABLET PO SCH ×2 (09:57→17:56)
[2017-08-07] MEDS: ASPIRIN *EC* 81 MG TABLET PO SCH ×2 (09:57→20:08)
[2017-08-07] MEDS: POLYETHYL GLYCOL 3350 17gm PACKET PO SCH (09:57)
[2017-08-07] MEDS: CITALOPRAM 40 MG TABLET PO SCH (09:57)
[2017-08-07] MEDS: DOCUSATE SODIUM 100 MG CAPSULE PO SCH ×2 (09:57→20:08)
[2017-08-07] MEDS ORDERED: SENNOSIDES 8.6 MG TABLET PO PRN (13:59)
[2017-08-07] MEDS ORDERED: PNEUMOCOCCAL 13 VACCINE 0.5ml INJECTION IM ONE (14:21)
[2017-08-07] MEDS ORDERED: PNEUMOCOCCAL VAC ADMIN CHARGE INJ ONE (18:00)
[2017-08-07] MEDS: SENNOSIDES 8.6 MG TABLET PO SCH (20:08)
[2017-08-07] MEDS: ATORVASTATIN 20 MG TABLET PO SCH (20:09)
[2017-08-08] MEDS: NOZIN NASAL SWAB NAS SCH ×4 (05:57→23:00)
[2017-08-08] MEDS: Oxycodone *IR* 5 MG TABLET PO PRN ×3 (07:52→20:00)
--- NOTE | 2017-08-08 07:58 | Extended Care Facility Orders ---
Admission Orders Admit to:: [facility] Allergies/Adverse Reactions: Allergies Estrogens Allergy (Severe, Verified 08/06/17 08:19) Swelling lorazepam [From Ativan] Allergy (Severe, Verified 08/06/17 08:19) Behavior Disturbance varenicline Allergy (Severe, Verified 08/06/17 08:19) hallucinations Penicillins Allergy (Mild, Verified 08/06/17 08:19) Rash amoxicillin Allergy (Unknown, Verified 08/06/17 08:19) Rash ampicillin Allergy (Unknown, Verified 08/06/17 08:19) Rash Sulfa (Sulfonamide Antibiotics) Allergy (Unknown, Verified 08/06/17 08:19) Rash codeine Adverse Reaction (Unknown, Verified 08/06/17 08:19) altered congnition levofloxacin Adverse Reaction (Unknown, Verified 08/06/17 08:19) altered cognition bupropion HCl Adverse Reaction (Unknown, Uncoded 08/06/17 08:19) altered cognitive state Admitting Diagnosis: Rt BLANQUITA M16.11 Admitting Physician: Micheal Blair MD Attending Physician: Micheal Blair MD Anticiapted Length of Stay: 30 days or less Rehab Potential: good Rehab Prognosis: good Diet: 08/06/17 Lunch Regular Diet [DIET] Diet Modifications: May use Facility Protocol or Standing Orders: Yes May have flu vaccine: Yes Evaluations/Treatment: PT, OT [facility] Certification: I certify that SNF services are required to be given on an Inpatient basis because of the patients need for alf care on a continuing basis for the condition(s) for which he/she received inpatient hospital services prior to his/her transfer to the SNF. SNF inpatient care is necessary for the following reasons Indication for [facility]: Postop Assessment Care - Additional Information In Event of Arrest: Start CPR,call 911,send patient to the ER Referrals: Micheal Blair MD [Physician] - 08/26/17 1:15 pm
--- NOTE | 2017-08-08 08:26 | Orthopedic Progress Note ---
Date: Date: 08/08/17 Time: 822 Subjective/Severity of Illness: Gege reports controlled pain in the right hip. She is ready to get up and move. SW has accepted her, but due to insurance constrains she must stay 3 midnights. Labs show BUN is 35, creat is 0.9. Additionally her K+ is 4.2 and Hgb 10.4. Gege uses Oxygen at home when sleeping and has a CPAP. She smoked for over 50yrs, but "quit" 6 months ago, although still smokes one of her husbands cigarettes once in a while. Denies CP or cough. No other concerns or complaints. Orthopedic Objective PO Vital signs: Temperature 97.9 F 08/08/17 03:00 Pulse Rate 76 08/08/17 03:00 Respiratory Rate 18 08/08/17 03:00 Blood Pressure 106/64 08/08/17 03:00 Pulse Oximetry 94 08/08/17 03:00 Height and Weight: Height 5 ft 3 in Weight 244 lb 11.41 oz Body Mass Index 39.2 - Constitutional General Appearance: Present: alert, cooperative, no acute distress - Respiratory Exam Present: non-labored - Cardiovascular Exam Present: pedal pulses intact - Extremities Exam Extremities: Present: pulses intact. Absent: calf tenderness - Surgical Site Incision: Mepilex dressing intact, no drainage - Neurological Exam Present: no deficits - Psychiatric Exam Present: alert, normal affect - Labs Result Diagrams: 08/08/17 05:08 08/08/17 05:08 Abnormal lab results 08/07/17 08/08/17 08/08/17 Range/Units 11:53 05:08 05:08 Hgb 10.4 L (12-16) GM/DL Hct 32.5 L (36-46) % Carbon Dioxide 32 H (22-30) MEQ/L BUN 35.0 H 35.0 H (7-17) MG/DL BUN/Creatinine Ratio 32 H 39 H (6-26) RATIO Glucose 162 H 169 H (65-110) MG/DL Calculated Osmolality 281 H 281 H (261-280) MOSM/KG H & H 08/07/17 08/08/17 Range/Units 04:05 05:08 Hgb 11.1 L 10.4 L (12-16) GM/DL Hct 35.2 L 32.5 L (36-46) % Orthopedic Assessment and Plan (1) Hypertension Status: Chronic (2) COPD (chronic obstructive pulmonary disease) Status: Chronic Qualifiers: COPD type: emphysema Emphysema type: unspecified Qualified Code(s): J43.9 - Emphysema, unspecified Assessment and Plan: Uses Oxygen at home. (3) Anxiety Status: Acute (4) Osteoarthritis of right hip Status: Chronic Qualifiers: Osteoarthritis type: primary Qualified Code(s): M16.11 - Unilateral primary osteoarthritis, right hip Assessment and Plan: Aspirin protocol for VTE prophylaxis x 6 weeks. SCD's and mobilization for added protection. PT/OT services to improve independent function. Must use a walker to off load the abductors x 6 weeks due to intraoperative fx of the greater trochanter. Discharge Planning per Case Management. Pt is hopeful for placement as she has several medical issues and debility. Hgb looks good at this time. K+ is WNL. She is ready for discharge as soon as she meets insurance criteria of 3 midnight stay. (5) Debility Status: Acute (6) Obesity, morbid, BMI 40.0-49.9 Status: Acute - Anticoagulation Therapy Anticoagulation: ASA 81 mg PO BID x6 weeks Hospital Course Summary Disclaimer: The visit summary below is not to be considered part of the above Progress Note.
[2017-08-08] MEDS: CITALOPRAM 40 MG TABLET PO SCH (09:17)
[2017-08-08] MEDS: POLYETHYL GLYCOL 3350 17gm PACKET PO SCH (09:17)
[2017-08-08] MEDS: ASPIRIN *EC* 81 MG TABLET PO SCH ×2 (09:17→20:01)
[2017-08-08] MEDS: DOCUSATE SODIUM 100 MG CAPSULE PO SCH ×2 (09:17→20:01)
[2017-08-08] MEDS: FUROSEMIDE 40 MG TABLET PO SCH ×2 (09:17→17:48)
[2017-08-08] MEDS: ACETAMINOPHEN 325 MG TABLET PO SCH ×4 (09:18→20:01)
[2017-08-08] MEDS ORDERED: BISACODYL 10 MG SUPPOSITORY RECTALLY SCH (20:00)
[2017-08-08] MEDS: ATORVASTATIN 20 MG TABLET PO SCH (20:01)
[2017-08-08] MEDS: SENNOSIDES 8.6 MG TABLET PO SCH (20:01)
[2017-08-09] MEDS: Oxycodone *IR* 5 MG TABLET PO PRN ×4 (02:38→23:23)
[2017-08-09] MEDS: NOZIN NASAL SWAB NAS SCH ×4 (02:40→21:00)
[2017-08-09] MEDS: DOCUSATE SODIUM 100 MG CAPSULE PO SCH ×2 (08:17→20:11)
[2017-08-09] MEDS: POLYETHYL GLYCOL 3350 17gm PACKET PO SCH (08:17)
[2017-08-09] MEDS: FUROSEMIDE 40 MG TABLET PO SCH ×2 (08:18→17:27)
[2017-08-09] MEDS: CITALOPRAM 40 MG TABLET PO SCH (08:18)
[2017-08-09] MEDS: ACETAMINOPHEN 325 MG TABLET PO SCH ×4 (08:18→20:11)
[2017-08-09] MEDS: ASPIRIN *EC* 81 MG TABLET PO SCH ×2 (08:18→20:11)
[2017-08-09] MEDS: ATORVASTATIN 20 MG TABLET PO SCH (20:11)
[2017-08-09] MEDS: SENNOSIDES 8.6 MG TABLET PO SCH (20:12)
--- NOTE | 2017-08-09 20:12 | Orthopedic Progress Note ---
Date: Date: 08/09/17 Time: 2008 Subjective/Severity of Illness: Gege is sleeping comfortably in her chair. I spoke with her nurse who indicated no new issues needed to be addressed. Orthopedic Objective PO Vital signs: Temperature 98.5 F 08/09/17 20:00 Pulse Rate 84 08/09/17 20:00 Respiratory Rate 20 08/09/17 20:00 Blood Pressure 123/67 08/09/17 20:00 Pulse Oximetry 93 08/09/17 20:00 Height and Weight: Height 5 ft 3 in Weight 244 lb 11.41 oz Body Mass Index 39.2 - Constitutional General Appearance: Present: no acute distress, other (sleeping) - Respiratory Exam Present: non-labored - Cardiovascular Exam Present: pedal pulses intact - Extremities Exam Extremities: Present: pulses intact. Absent: calf tenderness - Surgical Site Incision: Mepilex dressing intact, no drainage - Psychiatric Exam Present: other (sleeping) - Labs Result Diagrams: 08/08/17 05:08 08/08/17 05:08 H & H 08/07/17 08/08/17 Range/Units 04:05 05:08 Hgb 11.1 L 10.4 L (12-16) GM/DL Hct 35.2 L 32.5 L (36-46) % Orthopedic Assessment and Plan (1) Hypertension Status: Chronic (2) COPD (chronic obstructive pulmonary disease) Status: Chronic Qualifiers: COPD type: emphysema Emphysema type: unspecified Qualified Code(s): J43.9 - Emphysema, unspecified Assessment and Plan: Uses Oxygen at home. (3) Anxiety Status: Acute (4) Osteoarthritis of right hip Status: Chronic Qualifiers: Osteoarthritis type: primary Qualified Code(s): M16.11 - Unilateral primary osteoarthritis, right hip Assessment and Plan: Aspirin protocol for VTE prophylaxis x 6 weeks. SCD's and mobilization for added protection. PT/OT services to improve independent function. Must use a walker to off load the abductors x 6 weeks due to intraoperative fx of the greater trochanter. Discharge Planning per Case Management. Pt is hopeful for placement as she has several medical issues and debility. Hgb looks good at this time. K+ is WNL. She is ready for discharge as soon as she meets insurance criteria of 3 midnight stay. (5) Debility Status: Acute (6) Obesity, morbid, BMI 40.0-49.9 Status: Acute Hospital Course Summary Disclaimer: The visit summary below is not to be considered part of the above Progress Note.
[2017-08-10 05:13] VITALS: RESP 16; O2SAT 92
[2017-08-10] MEDS: NOZIN NASAL SWAB NAS SCH (05:17)
[2017-08-10] MEDS: Oxycodone *IR* 5 MG TABLET PO PRN ×2 (05:32→10:18)
--- NOTE | 2017-08-10 07:54 | Extended Care Facility Orders ---
Admission Orders Admit to:: [facility] Allergies/Adverse Reactions: Allergies Estrogens Allergy (Severe, Verified 08/06/17 08:19) Swelling lorazepam [From Ativan] Allergy (Severe, Verified 08/06/17 08:19) Behavior Disturbance varenicline Allergy (Severe, Verified 08/06/17 08:19) hallucinations Penicillins Allergy (Mild, Verified 08/06/17 08:19) Rash amoxicillin Allergy (Unknown, Verified 08/06/17 08:19) Rash ampicillin Allergy (Unknown, Verified 08/06/17 08:19) Rash Sulfa (Sulfonamide Antibiotics) Allergy (Unknown, Verified 08/06/17 08:19) Rash codeine Adverse Reaction (Unknown, Verified 08/06/17 08:19) altered congnition levofloxacin Adverse Reaction (Unknown, Verified 08/06/17 08:19) altered cognition bupropion HCl Adverse Reaction (Unknown, Uncoded 08/06/17 08:19) altered cognitive state Admitting Diagnosis: Rt BLANQUITA M16.11 Admitting Physician: Micheal Blair MD Attending Physician: Micheal Blair MD Anticiapted Length of Stay: 30 days or less Rehab Potential: good Rehab Prognosis: good Diet: 08/06/17 Lunch Regular Diet [DIET] Diet Modifications: Wound/Incision Care: Keep wound dry. Do not remove the Mepilex dressing. May use Facility Protocol or Standing Orders: Yes May have flu vaccine: Yes Evaluations/Treatment: PT (Avoid abduction exercises to the operative hip due to greater trochanteric fracture. Use walker to off load abductors when walking.), OT (Avoid abduction exercises to the operative hip due to greater trochanteric fracture. Use walker to off load abductors when walking.) [facility] Certification: I certify that SNF services are required to be given on an Inpatient basis because of the patients need for fci care on a continuing basis for the condition(s) for which he/she received inpatient hospital services prior to his/her transfer to the SNF. SNF inpatient care is necessary for the following reasons Indication for [facility]: Postop Assessment Care - Additional Information In Event of Arrest: Start CPR,call 911,send patient to the ER Resident is Aware of Diagnosis: Yes Referrals: Micheal Blair MD [Physician] - 08/26/17 1:15 pm Additional Orders: Avoid abduction exercises to the operative hip due to greater trochanteric fracture. Use walker to off load abductors when walking. She may be WBAT when using the walker. Follow hip precautions. Use incentive spirometer q 4hrs while awake. Keep the incision dry. Report any wound concerns. Do not remove the Mepilex dressing.
--- NOTE | 2017-08-10 08:10 | Discharge Summary ---
Orthopedic Discharge Info Date of admission: 08/06/17 07:49 Anticipated date of discharge: 08/10/17 Primary care physician: Yazmin Duran MD Attending Physician: Micheal Blair MD Consults: 08/06/17 08:15 Consult to Anesthesiology [CONS] Routine Reason For Exam: Preoperative Assessment 08/06/17 14:35 Case Management Consult [CONS] Routine Reason For Exam: Discharge Planning DME-Walker [CONS] Routine Height: 5 ft 3 in Weight: 221 lb 1.978 oz Total Joint Outpatient Therapy [CONS] Routine Comment: Remove dressing in 2 weeks 08/07/17 IRU Screening [Inpatient Rehab Screening] [CONS] Routine Screen requested by:: Family/Patient Comment Text:: R BLANQUITA WITH "CLAWS AND WIRE WRAPS" POSS DC 08/07/17 08/07/17 13:23 Doctor [Physician Consult] [CONS] Routine Consulting Provider: Albaro Means Reason For Exam: SNF Ordering Provider has Notified Fire Protection Specialist: Yes - Discharge Diagnosis (1) Osteoarthritis of right hip Qualifiers: Osteoarthritis type: primary Qualified Code(s): M16.11 - Unilateral primary osteoarthritis, right hip Status: Chronic (2) Anxiety Status: Acute (3) Debility Status: Acute (4) Obesity, morbid, BMI 40.0-49.9 Status: Acute (5) COPD (chronic obstructive pulmonary disease) Qualifiers: COPD type: emphysema Emphysema type: unspecified Qualified Code(s): J43.9 - Emphysema, unspecified Status: Chronic (6) Hypertension Status: Chronic - Procedures Procedures: Procedures Replacement of Left Hip Joint with Metal on Polyethylene Synthetic Substitute, Uncemented, Open Approach (04/02/17) Robotic Assisted Procedure of Lower Extremity, Open Approach (04/02/17) Rt BLANQUITA 08/06/17 - Laboratory Result Diagrams: 08/08/17 05:08 08/08/17 05:08 Laboratory: H & H 08/07/17 08/08/17 Range/Units 04:05 05:08 Hgb 11.1 L 10.4 L (12-16) GM/DL Hct 35.2 L 32.5 L (36-46) % Orthopedic Discharge HPI - HPI Comments This patient was admitted for elective surgical tx of end stage degenerative joint disease that failed to respond to conservative treatment. Further details of this is found in the admission H&P. Orthopedic Hospital Course Care extended to > 2 midnight stays?: Yes Comments: Fracture greater trochanter. Mobility limitations. Needed 3 nights for SNU placement / review. Discharge Plan - Med Rec/Dispo Referrals/Follow Up: Micheal Blair MD [Physician] - 08/26/17 1:15 pm Prescriptions: New Aspirin *EC* [Ecotrin] 81 mg PO BID #84 tab Oxycodone *IR* [Roxicodone *Ir*] 5 - 15 mg PO Q3H PRN #60 tab PRN Reason: Breakthrough Pain PEG 3350 17gm PACKET [Miralax] 17 gm PO DAILY packet Acetaminophen [Tylenol] 650 mg PO QID tab Naproxen [Aleve] 440 mg PO BID PRN tab PRN Reason: Pain Continue Cranberry Fruit [Cranberry] 400 mg PO DAILY Atorvastatin Calcium 20 mg PO HS #0 Furosemide [Lasix] 40 mg PO BID Citalopram [Celexa] 60 mg PO DAILY Milk of Magnesia [Mom] 30 ml PO PRN PRN PRN Reason: Constipation ergocalciferol (vitamin D2) 50,000 unit capsule 50,000 unit PO DAILY #1 cap Discontinued Basco 10 mg-acetaminophen 325 mg tablet 1 tab PO Q6H PRN 30 Days #120 PRN Reason: Pain - Disposition 03 To SNU Not [facility] (SNF) - Dismissal Complete Discharge Instructions are:: Complete
--- NOTE | 2017-08-10 08:15 | Orthopedic Progress Note ---
Date: Date: 08/10/17 Time: 08 Subjective/Severity of Illness: Gege is up to her chair eating breakfast. She is in good spirits. Reports that activity is getting a little easier. Some pain laterally but well controlled. No CP, cough, SOA or other complaints. Orthopedic Objective PO Vital signs: Temperature 97.9 F 08/10/17 05:00 Pulse Rate 72 08/10/17 05:00 Respiratory Rate 16 08/10/17 05:00 Blood Pressure 155/89 H 08/10/17 05:00 Pulse Oximetry 92 08/10/17 05:00 Height and Weight: Height 5 ft 3 in Weight 244 lb 11.41 oz Body Mass Index 39.2 - Constitutional General Appearance: Present: alert, cooperative, no acute distress - Respiratory Exam Present: non-labored - Cardiovascular Exam Present: pedal pulses intact - Extremities Exam Extremities: Present: pulses intact. Absent: calf tenderness - Surgical Site Incision: Mepilex dressing intact, no drainage - Neurological Exam Present: no deficits - Psychiatric Exam Present: alert, oriented, normal affect - Labs Result Diagrams: 08/08/17 05:08 08/08/17 05:08 H & H 08/07/17 08/08/17 Range/Units 04:05 05:08 Hgb 11.1 L 10.4 L (12-16) GM/DL Hct 35.2 L 32.5 L (36-46) % Orthopedic Assessment and Plan (1) Osteoarthritis of right hip Status: Chronic Qualifiers: Osteoarthritis type: primary Qualified Code(s): M16.11 - Unilateral primary osteoarthritis, right hip Assessment and Plan: Aspirin protocol for VTE prophylaxis x 6 weeks. SCD's and mobilization for added protection. PT/OT services to improve independent function. Must use a walker to off load the abductors x 6 weeks due to intraoperative fx of the greater trochanter. Discharge Planning per Case Management. Pt is hopeful for placement as she has several medical issues and debility. She is ready for discharge medically. She will work with PT this AM and we will await insurance decision on placement. Expect discharge to SNU vs home with home health. (2) Anxiety Status: Acute (3) Debility Status: Acute (4) Obesity, morbid, BMI 40.0-49.9 Status: Acute (5) COPD (chronic obstructive pulmonary disease) Status: Chronic Qualifiers: COPD type: emphysema Emphysema type: unspecified Qualified Code(s): J43.9 - Emphysema, unspecified Assessment and Plan: Uses Oxygen at home. (6) Hypertension Status: Chronic Hospital Course Summary Disclaimer: The visit summary below is not to be considered part of the above Progress Note.
[2017-08-10] MEDS: CITALOPRAM 40 MG TABLET PO SCH (08:29)
[2017-08-10] MEDS: FUROSEMIDE 40 MG TABLET PO SCH (08:29)
[2017-08-10] MEDS: ACETAMINOPHEN 325 MG TABLET PO SCH (08:29)
[2017-08-10] MEDS: DOCUSATE SODIUM 100 MG CAPSULE PO SCH (08:29)
[2017-08-10] MEDS: POLYETHYL GLYCOL 3350 17gm PACKET PO SCH (08:29)
[2017-08-10] MEDS: ASPIRIN *EC* 81 MG TABLET PO SCH (08:30)
[2017-08-10 09:05] VITALS: BP 133/77; PULSE 71; TEMP 96.4
== END 2017-08-10 13:54 | DRG 470 ==
LOC: NMC.PERIOP 08-06 07:49 → SRG 08-06 14:35
PROVIDERS: ADMIT Orthopaedic Surgery; ATTEND Orthopaedic Surgery

== ENCOUNTER 2017-08-27 10:59 | Inpatient (IN) ==
[2017-08-27] MEDS ORDERED: ONDANSETRON 4 MG/2 ML INJECTION IVP ONE (12:20)
[2017-08-27] MEDS ORDERED: MORPHINE SULFATE 4mg INJECTION IVP ONE (12:21)
--- NOTE | 2017-08-27 12:42 | Emergency Department Report ---
Extremity Problem HPI - General Chief complaint: Extremity Problem,Nontraumatic Stated complaint: leg pain/post hip surgery Time Seen by Provider: 08/27/17 11:17 Source: patient, family Mode of arrival: EMS Limitations: physical limitation - History of Present Illness HPI Narrative: Pt presents per EMS with what she describes as excruciating right hip pain that seems to spasm. Pt states she last had physical therapy 6 days ago insisting they pushed her "too hard". She reports pain has been increasing in intensity since that time and she is no longer able to ambulate. She states she has not been able to "keep anything down" and thinks she recently had the flu. Complaint: joint paint Onset (ago): day(s) Consistency: constant Location: lower extremity Severity scale (1-10): >10 Quality: crushing Radiation: distal Relieving factors: nothing Exacerbating factors: range of motion, weight bearing, walking, exertion, palpation, rest Context: recent surgery/procedure - Related Data Home Medications Medication Instructions Recorded Confirmed Atorvastatin Calcium 20 mg PO HS #0 09/20/15 08/27/17 Furosemide [Lasix] 60 mg PO BID 02/28/17 08/27/17 Citalopram [Celexa] 60 mg PO DAILY 08/03/17 08/27/17 Cranberry Fruit [Cranberry] 400 mg PO DAILY 08/03/17 08/27/17 Acetaminophen [Tylenol] 650 mg PO QID PRN 08/27/17 08/27/17 Docusate Sodium [Colace] 1 cap PO DAILY 08/27/17 08/27/17 Gabapentin [Gabapentin] 300 mg PO TID 08/27/17 08/27/17 Hydrocodone/APAP 5/325 [Rankin 1 tab PO Q4H PRN 08/27/17 08/27/17 5/325] Ibuprofen [Motrin] 600 mg PO Q6H PRN 08/27/17 08/27/17 Potassium Chloride [K-Tab ER] 20 meq PO DAILY 08/27/17 08/27/17 Sennosides/Docusate Sodium 1 each PO DAILY 08/27/17 08/27/17 [Senna-S Tablet] Previous Rx's Medication Instructions Recorded Aspirin *EC* [Ecotrin] 81 mg PO BID #84 tab 08/07/17 PEG 3350 17gm PACKET [Miralax] 17 gm PO DAILY packet 08/07/17 Allergies Allergy/AdvReac Type Severity Reaction Status Date / Time Estrogens Allergy Severe Swelling Verified 08/27/17 11:42 lorazepam [From Ativan] Allergy Severe Behavior Verified 08/27/17 11:42 Disturbance varenicline Allergy Severe hallucinati Verified 08/27/17 11:42 ons Penicillins Allergy Mild Rash Verified 08/27/17 11:42 amoxicillin Allergy Unknown Rash Verified 08/27/17 11:42 ampicillin Allergy Unknown Rash Verified 08/27/17 11:42 Sulfa (Sulfonamide Allergy Unknown Rash Verified 08/27/17 11:42 Antibiotics) codeine AdvReac Unknown altered Verified 08/27/17 11:42 congnition levofloxacin AdvReac Unknown altered Verified 08/27/17 11:42 cognition bupropion HCl AdvReac Unknown altered Uncoded 08/06/17 08:19 cognitive state Review of Systems All systems: reviewed and negative except as stated Constitutional: Reports: as per HPI Gastrointestinal: Reports: as per HPI Musculoskeletal: Reports: as per HPI PFS Patient Stated Medical History Cataracts Yes Dental Problems dentures Other HEENT Yes: glasses Angina No: states she had arm pain, cardiac cath done and negative Coronary Artery Disease No Hypertension Yes Chronic Obstructive Pulmonary Yes Disease (COPD) Sleep Apnea Yes: working with Dr Toribio to get a working CPAP Diabetes Mellitus Type 2 No Gastroesophageal Reflux No Disease Hiatal Hernia Yes Other GI Yes: IBS w/constipation Hx Urinary Tract Infection Yes: improved since taking cranberry Osteoarthritis Yes Cellulitis Yes: lower extremities Anesthesia Reactions No Depression Yes Post Menopausal Yes Clinic Medical History (Last Reviewed 08/05/17 @ 08:32 by Micheal Blair MD) COPD (chronic obstructive pulmonary disease) (Acute Medical) Sleep apnea (Acute Medical) Depression (Chronic Medical) HTN (hypertension) (Chronic Medical) High cholesterol (Chronic Medical) IBS (irritable bowel syndrome) (Chronic Medical) Surgical History: Tubal ligation. LT BLANQUITA 04-02-17 Family History: Family History (Last Reviewed 08/05/17 @ 08:32 by Micheal Blair MD) Mother Cancer Father Heart attack - Social History Smoking status: Former smoker Physical Exam - Limitations Limitations: no limitations - General General appearance: alert, in distress - Normal Exams: Head:: Normocephalic without trauma Chest/Respirations:: Clear all merino, with good airflow, and symmetry bilaterally Cardiovascular:: Regular rate and rhythm, without murmur or gallop, <2 seconds all extremities (difficulty palpating right DP however extremity is warm and red ) Abdomen:: Bowel sounds positive (abd seems somewhat distended), soft, non-tender Neurological:: Patient is alert, and oriented, cranial nerves, motor/sensory/ cerebellar, exams w/o gross deficits, to observation Psychiatric:: Patient exhibits, appropriate attention, emotion and affect - Expanded Lower Extremity Exam right Hip/Pelvis exam: Present: normal inspection, tenderness. Absent: full ROM, swelling, crepitus, dislocation, erythema Lower leg exam: Present: tenderness (to palpation), ecchymosis, erythema (trace edema) Course Vital Signs Temperature 97.5 F 08/27/17 11:00 Pulse Rate 81 08/27/17 11:00 Respiratory Rate 20 08/27/17 11:00 Blood Pressure 173/70 H 08/27/17 11:00 Pulse Oximetry 86 L 08/27/17 11:00 Temperature 97.5 F 08/27/17 11:00 Pulse Rate 81 08/27/17 11:00 Respiratory Rate 20 08/27/17 11:00 Blood Pressure 173/70 H 08/27/17 11:00 Pulse Oximetry 91 08/27/17 11:05 Extremity Problem, Nontraumati - MDM Narrative Medical decision making narrative: Dr Blair aware of pt presenting to ER prior to arrival. Dr Blair at bedside to admit pt. Pain meds given with minimal relief. US negative for DVT. Labs obtained. Dr Blair to notify hospitalist to complete admission. - Differential Diagnosis Likely: cellulitis, superficial thrombophlebitis, lower extremity edema (septic joint), deep vein thrombosis of lower extremity - Lab Data Result diagrams: 08/27/17 13:34 08/27/17 13:34 Lab Results 08/27/17 08/27/17 Range/Units 13:34 13:34 WBC 7.4 (4.5-11.0) T/MM3 RBC 4.22 (4.00-5.20) M/MM3 Hgb 10.4 L (12-16) GM/DL Hct 32.7 L (36-46) % MCV 77.5 L (80-100) UM3 MCH 24.6 L (26-34) UUG MCHC 31.8 (31-37) GM/DL RDW Std Deviation 54.4 H (36.9-50.2) FL Plt Count 333 (130-400) T/MM3 MPV 9.4 (9.4-12.4) UM3 Immature Gran % (Auto) 0.9 H (0.0-0.5) % Neut % (Auto) 66.2 H (33-66) % Lymph % (Auto) 19.4 L (23-45) % Dodge % (Auto) 8.3 (0-9.0) % Eos % (Auto) 4.7 H (0-4) % Baso % (Auto) 0.5 (0-2) % Neut # (Auto) 4.9 (1.8-7.7) T/MM3 Lymph # (Auto) 1.4 (1-4.8) T/MM3 Dodge # (Auto) 0.6 (0-0.8) T/MM3 Eos # (Auto) 0.4 (0-0.5) T/MM3 Baso # (Auto) 0.0 (0-0.2) T/MM3 Abs Immat Gran (auto) 0.07 H (0.00-0.03) T/MM3 Turbidity < 20 (0-20) Sodium 142 (134-144) MEQ/L Potassium 3.6 (3.6-5) MEQ/L Chloride 98 (98-107) MEQ/L Carbon Dioxide 35 H (22-30) MEQ/L Anion Gap 9 (5-15) MEQ/L BUN 11.0 (7-17) MG/DL Creatinine 0.8 (0.7-1.2) MG/DL GFR Calculation 71 BUN/Creatinine Ratio 14 (6-26) RATIO Glucose 93 (65-110) MG/DL Calculated Osmolality 272 (261-280) MOSM/KG Calcium 8.9 (8.4-10.2) MG/DL Total Bilirubin 0.40 (0.20-1.30) MG/DL Icterus Index < 2 (0-7) AST 14 (14-36) U/L ALT 27 (9-52) U/L Alkaline Phosphatase 113 (38-126) U/L Total Protein 6.8 (6.3-8.2) G/DL Albumin 3.8 (3.5-5.0) G/DL Globulin 3.0 (2.4-3.6) G/DL Albumin/Globulin Ratio 1.3 (1.1-2.2) RATIO Specimen Hemolysis < 15 (0-25) Disposition Clinical Impression: Femur fracture, right Qualifiers: Encounter type: initial encounter Femur location: supracondylar with intracondylar extension Fracture type: closed Fracture alignment: nondisplaced Qualified Code(s): S72.464A - Nondisplaced supracondylar fracture with intracondylar extension of lower end of right femur, initial encounter for closed fracture Disposition: 02 To [facility] [place] Acute Care Condition: Improved Prescriptions: No Action Cranberry Fruit [Cranberry] 400 mg PO DAILY Aspirin *EC* [Ecotrin] 81 mg PO BID #84 tab PEG 3350 17gm PACKET [Miralax] 17 gm PO DAILY packet Docusate Sodium [Colace] 1 cap PO DAILY Potassium Chloride [K-Tab ER] 20 meq PO DAILY Ibuprofen [Motrin] 600 mg PO Q6H PRN PRN Reason: Pain Hydrocodone/APAP 5/325 [Rankin 5/325] 1 tab PO Q4H PRN PRN Reason: Pain Acetaminophen [Tylenol] 650 mg PO QID PRN PRN Reason: Pain Atorvastatin Calcium 20 mg PO HS #0 Furosemide [Lasix] 60 mg PO BID Citalopram [Celexa] 60 mg PO DAILY Sennosides/Docusate Sodium [Senna-S Tablet] 1 each PO DAILY Gabapentin [Gabapentin] 300 mg PO TID Referrals: Yazmin Duran MD [Family Provider] - Time of Disposition: 14:30 - Seen By: paraglevel
--- NOTE | 2017-08-27 12:50 | Ultrasound Report ---
Indication: 3 week post op hip increased pain PROCEDURE: US venous doppler LE RT: Encounter: Initial Comparison: None Technique: Color Doppler duplex and grayscale sonographic imaging of the right lower extremity was performed. Findings: There is no evidence for acute deep venous thrombosis in the right thigh. Specifically, serial graded compression was performed from the inguinal ligament to the popliteal bifurcation, on the right thigh, demonstrating appropriate compressibility of the deep venous system. In addition, color and pulsed Doppler demonstrate appropriate spontaneous flow, variation with respiration, and augmentation with calf compression. At the ankle, normal flow is identified in the posterior tibial veins; these vessels are also normal in caliber. Impression: No evidence of acute DVT in the right lower limb. .
[2017-08-27] MEDS: SALINE FLUSH 10ml SYRINGE IVF PRN ×2 (13:08→13:11)
--- NOTE | 2017-08-27 13:29 | CT Scan Report ---
Indication: 3 week post op hip with pain PROCEDURE: CT hip RT wo con: Encounter: Initial Comparison: None Technique: Axial CT images were performed through the right hip without intravenous contrast. Coronal and sagittal two-dimensional reformats. Automated Exposure Control and Iterative Reconstruction dose reducing techniques were utilized. Findings: Metallic artifact from the right hip prosthesis. There is an oblique fracture extending through the anterior and medial cortex of the subtrochanteric diaphysis. This extends inferiorly to the distal aspect of the femoral stem and cranially through the superior most aspect of the femur. Comparing today's greenkeeper image with the postoperative radiographs, this fracture appears new. There are two fracture lucencies in the anterior and medial cortex, best seen on axial image #54. No focal hematoma appreciated. Impression: Periprosthetic fracture of the anteromedial femoral diaphysis which appears new since August 06, 2017. .
--- NOTE | 2017-08-27 13:34 | Orthopedic History & Physical ---
Orthopedic HPI - HPI Comments Mrs. Murray is a kind 72-year-old female who is 3 weeks status post right total hip arthroplasty. She called my office today complaining of severe groin pain with ambulation. We asked her to come in for an x-ray but she didn't feel safe coming down her stairs that she called 911 is brought into the emergency room here [facility].. Emergency room she was evaluated by the emergency room staff and a CT scan was ordered as well as an ultrasound. Ultrasound was negative for blood clot the CT scan did show a periprosthetic fracture. I was contacted in recommended admission to the hospital today for surgery tomorrow. Mrs. Murray states that she was doing very well last week started having more pain on Thursday when [facility]. She states the pain is increased since Thursday in really has been severe in the groin with weightbearing yesterday and today. She does not recall any incident where she stumbled and fell or felt a pop. She complains of only right hip pain. [facility] Patient Stated Medical History Cataracts Yes Dental Problems dentures Other HEENT Yes: glasses Angina No: states she had arm pain, cardiac cath done and negative Coronary Artery Disease No Hypertension Yes Chronic Obstructive Pulmonary Yes Disease (COPD) Sleep Apnea Yes: working with Dr Toribio to get a working CPAP Diabetes Mellitus Type 2 No Gastroesophageal Reflux No Disease Hiatal Hernia Yes Other GI Yes: IBS w/constipation Hx Urinary Tract Infection Yes: improved since taking cranberry Osteoarthritis Yes Cellulitis Yes: lower extremities Anesthesia Reactions No Depression Yes Post Menopausal Yes Clinic Medical History (Last Reviewed 08/05/17 @ 08:32 by Micheal Blair MD) COPD (chronic obstructive pulmonary disease) (Acute Medical) Sleep apnea (Acute Medical) Depression (Chronic Medical) HTN (hypertension) (Chronic Medical) High cholesterol (Chronic Medical) IBS (irritable bowel syndrome) (Chronic Medical) Surgical History: Tubal ligation. LT BLANQUITA 04-02-17 Family History: Family History (Last Reviewed 08/05/17 @ 08:32 by Micheal Blari MD) Mother Cancer Father Heart attack - Social History Smoking status: Former smoker Review of Systems - Constitutional Constitutional: Absent: chills, fever(s), night sweats - Cardiovascular Cardiovascular: Absent: chest pain, palpitations - Respiratory Respiratory: Absent: cough, dyspnea - Gastrointestinal Gastrointestinal: Absent: abdominal pain, nausea, vomiting - Genitourinary Genitourinary Female: Absent: dysuria - Musculoskeletal Musculoskeletal: Present: as per HPI - Integumentary/Breasts Integumentary: Absent: lesions, rash - Neurological Neurological: Absent: numbness, tingling Medications Home Medications Medication Instructions Recorded Confirmed Type Atorvastatin Calcium 20 mg PO HS #0 09/20/15 08/27/17 History Furosemide [Lasix] 60 mg PO BID 02/28/17 08/27/17 History Citalopram [Celexa] 60 mg PO DAILY 08/03/17 08/27/17 History Cranberry Fruit [Cranberry] 400 mg PO DAILY 08/03/17 08/27/17 History Acetaminophen [Tylenol] 650 mg PO QID PRN 08/27/17 08/27/17 History Docusate Sodium [Colace] 1 cap PO DAILY 08/27/17 08/27/17 History Gabapentin [Gabapentin] 300 mg PO TID 08/27/17 08/27/17 History Hydrocodone/APAP 5/325 [[place] 1 tab PO Q4H PRN 08/27/17 08/27/17 History 5/325] Ibuprofen [Motrin] 600 mg PO Q6H PRN 08/27/17 08/27/17 History Potassium Chloride [K-Tab ER] 20 meq PO DAILY 08/27/17 08/27/17 History Sennosides/Docusate Sodium 1 each PO DAILY 08/27/17 08/27/17 History [Senna-S Tablet] Allergies Allergy/AdvReac Type Severity Reaction Status Date / Time Estrogens Allergy Severe Swelling Verified 08/27/17 11:42 lorazepam [From Ativan] Allergy Severe Behavior Verified 08/27/17 11:42 Disturbance varenicline Allergy Severe hallucinati Verified 08/27/17 11:42 ons Penicillins Allergy Mild Rash Verified 08/27/17 11:42 amoxicillin Allergy Unknown Rash Verified 08/27/17 11:42 ampicillin Allergy Unknown Rash Verified 08/27/17 11:42 Sulfa (Sulfonamide Allergy Unknown Rash Verified 08/27/17 11:42 Antibiotics) codeine AdvReac Unknown altered Verified 08/27/17 11:42 congnition levofloxacin AdvReac Unknown altered Verified 08/27/17 11:42 cognition bupropion HCl AdvReac Unknown altered Uncoded 08/06/17 08:19 cognitive state Orthopedic Exam Vital signs: Temperature 97.5 F 08/27/17 11:00 Pulse Rate 81 08/27/17 11:00 Respiratory Rate 20 08/27/17 11:00 Blood Pressure 173/70 H 08/27/17 11:00 Pulse Oximetry 91 08/27/17 11:05 - Constitutional General Appearance: Present: mild distress - Respiratory Exam Present: non-labored - Cardiovascular Exam Present: pedal pulses intact - Extremities Exam Comments: Right leg appears shorter and externally rotated compared to the left. She has some mild swelling to her lower leg and mild erythema over the lower leg as well. Her previous incisions well-healed over the right hip. No specific tenderness with palpation of the calf or thigh. She is neurovascularly intact to the right foot. - Integumentary Exam Present: pink, warm, dry - Neurological Exam Present: intact to light touch, no deficits - Psychiatric Exam Present: alert, normal affect - Diagnostic results Hip CT: image reviewed Orthopedic Assessment and Plan (1) Periprosthetic fracture around internal prosthetic right hip joint Status: Acute Qualifiers: Encounter type: initial encounter Qualified Code(s): M97.01XA - Periprosthetic fracture around internal prosthetic right hip joint, initial encounter; T84.040A - Periprosthetic fracture around internal prosthetic right hip joint, initial encounter Assessment and Plan: I reviewed her CT scan findings. The x-ray is pending. I recommended returning to the operating room tomorrow for either an open reduction internal fixation with cables or revision of the femoral component with revision stem as well as cables. I reviewed the risks and benefits and expected postoperative course with her and her . We will consult medicine for medical management during her stay. She agreed with this plan. - Anticoagulation Therapy Anticoagulation: Lovenox 40 mg SQ Daily x 30 days from day of surgery Hospital Course Summary Disclaimer: The visit summary below is not to be considered part of the above Progress Note.
[2017-08-27] MEDS ORDERED: NS 1,000 ML IV SCH ×2 (14:00→14:02)
[2017-08-27] MEDS ORDERED: LIDOCAINE 1% (10mg/ml) 2mL INJ PF SDV ID ONE (14:02)
[2017-08-27] MEDS ORDERED: SALINE FLUSH 10ml SYRINGE IV PRN (14:02)
[2017-08-27] MEDS ORDERED: Oxycodone *IR* 15 MG TABLET PO PRN (14:30)
[2017-08-27] MEDS ORDERED: ONDANSETRON 4 MG/2 ML INJECTION IVP PRN (14:30)
--- NOTE | 2017-08-27 14:31 | XRay Report ---
Indication: 3 week post op hip/ pain PROCEDURE: XR hip RT min 2V: Encounter: Initial Comparison: CT right hip from today and radiographs dated August 06, 2017 Findings: Oblique nondisplaced periprosthetic fracture of the right proximal femur is again noted as seen on today's CT. This exits the medial cortex at the level of the distal femoral stem. The known anterior fracture lines are not well seen, likely obscured by the hardware. No dislocation. No additional acute fracture. Impression: Closed periprosthetic fracture of the proximal femur, new since August 06, 2017. .
[2017-08-27 15:50] VITALS: BMI 43.0
--- NOTE | 2017-08-27 16:12 | Consult Note ---
Consult Information - Data of Consult Consult date: 08/27/17 Requesting Physician: Micheal Blair MD Primary Care Provider: Yazmin Duran MD Family Provider: Yazmin Duran MD - Consult Narrative Reason for consult: Medical mangement HTN, COPD History of present illness: She has a 72-year-old female who has been under the primary care of Dr. Yazmin Duran. Patient underwent a elective Right hip arthroplasty for ongoing right degenerative joint disease. During this procedure, patient was found to have an unknown greater trochanteric fracture. Postoperatively patient did well , and she was discharged on 08/10/17 at which time she went to [facility] for skilled rehabilitation. She was just discharged from [facility] this past weekend 08/22/17 and was discharged home independently. He called Dr. Blair's office this morning to complain of right-sided groin pain with ambulation. She did not feel that she was able to come to the office for evaluation. Thus, she contacted 911 and was transported to [facility] emergency room for further evaluation. Unfortunately, she was found to have a periprosthetic fracture. Venous Doppler of the lower extremity was also performed that was negative for acute thrombus. Even findings of periprosthetic fracture. Patient was admitted under the care of Dr. Blair with plans for surgical repair tomorrow. 08/28. The hospitalist services were consulted for medical management given patient's extensive existing comorbidities. Gege is seen upon initial admission. She is alert, oriented and pleasant, currently on 3 liters of oxygen by nasal cannula. Indicate that she follows chronically with Dr. Toribio given underlying COPD and sleep apnea. However, prior to her previous hospitalization. She would only wear oxygen at night. Currently is requiring 3 liters to maintain saturations. Gege verbalizes frustration as she completed skilled rehabilitation just 4 days ago and was able to be discharged home. She did not have any event in which she fell or had trauma, however, she does report scooting back in her chair at one point it which caused some groin discomfort. Did discuss advanced directives and she does indicate she is a full code. Past Medical History Patient Stated Medical History COPD with intermittent chronic oxygen use Hypertension Seizure Hx Irritable bowel syndrome Depression Sleep apnea Hypercholesterolemia GERD Surgical History: Tubal ligation- 1979. LT BLANQUITA -03/2017- [facility]. Colonoscopy- 2011. Right BLANQUITA- 08/06/17- Johnnie. Right inguinal hernia repair-1999. Cholecystectomy-1979. Lipoma removed from upper back-1991 Family History Updates: Father had heart trouble, of heart problems or stroke in his mid-70s. He was obese and had diabetes. Mother was a heavy smoker. She had lung cancer. in her 70s. Maternal aunt also of lung cancer. Almost everyone in her family has depression. Sister, age 67, kidney failure on dialysis, plans to have kidney. transplant. She is also diabetic. Hx breast cancer. Younger brother of lymphoma at age 57. - Social History Smoking status: Former smoker Packs per day: 1 Packs-years: 56 Substance use type: does not use Alcohol intake frequency: does not drink Housing: house Current occupational status: retired Current residence: Apartment/Private Home Social history: Primary care provider-Dr. Yazmin Duran Resides independently at home Review of Systems All systems PM: 10-point ROS was reviewed, no additional remarkable complaints except - Musculoskeletal Musculoskeletal: Present: as per HPI Musculoskeletal Comments: Right hip/groin pain Medications Home Medications Medication Instructions Recorded Confirmed Type Atorvastatin Calcium 20 mg PO HS #0 09/20/15 08/27/17 History Furosemide [Lasix] 60 mg PO BID 02/28/17 08/27/17 History Citalopram [Celexa] 60 mg PO DAILY 08/03/17 08/27/17 History Cranberry Fruit [Cranberry] 400 mg PO DAILY 08/03/17 08/27/17 History Acetaminophen [Tylenol] 650 mg PO QID PRN 08/27/17 08/27/17 History Docusate Sodium [Colace] 1 cap PO DAILY 08/27/17 08/27/17 History Gabapentin [Gabapentin] 300 mg PO TID 08/27/17 08/27/17 History Hydrocodone/APAP 5/325 [[place] 1 tab PO Q4H PRN 08/27/17 08/27/17 History 5/325] Ibuprofen [Motrin] 600 mg PO Q6H PRN 08/27/17 08/27/17 History Potassium Chloride [K-Tab ER] 20 meq PO DAILY 08/27/17 08/27/17 History Sennosides/Docusate Sodium 1 each PO DAILY 08/27/17 08/27/17 History [Senna-S Tablet] Allergies Allergy/AdvReac Type Severity Reaction Status Date / Time Estrogens Allergy Severe Swelling Verified 08/27/17 11:42 lorazepam [From Ativan] Allergy Severe Behavior Verified 08/27/17 11:42 Disturbance varenicline Allergy Severe hallucinati Verified 08/27/17 11:42 ons Penicillins Allergy Mild Rash Verified 08/27/17 11:42 amoxicillin Allergy Unknown Rash Verified 08/27/17 11:42 ampicillin Allergy Unknown Rash Verified 08/27/17 11:42 Sulfa (Sulfonamide Allergy Unknown Rash Verified 08/27/17 11:42 Antibiotics) codeine AdvReac Unknown altered Verified 08/27/17 11:42 congnition levofloxacin AdvReac Unknown altered Verified 08/27/17 11:42 cognition bupropion HCl AdvReac Unknown altered Uncoded 08/06/17 08:19 cognitive state Exam Vital Signs: Temperature 97.4 F 08/27/17 14:30 Pulse Rate 80 08/27/17 14:30 Respiratory Rate 18 08/27/17 14:30 Blood Pressure 152/82 H 08/27/17 14:30 Pulse Oximetry 93 08/27/17 14:30 Height/Weight/BMI: Height 1.6 m Weight 110.3 kg Body Mass Index 43.0 - Constitutional Present: no acute distress, well nourished, well developed - Routine HEENT Exam Eye: Present: EOMI ENT: Present: mucous membranes moist, dentition normal - Routine Respiratory Exam Present: CTA bilaterally. Absent: wheezes - Routine Cardiovascular Exam Present: RRR, S1, S2. Absent: murmur - Routine Abdominal Exam Present: soft, normoactive bowel sounds, non distended. Absent: tenderness - Routine Extremities Exam Present: edema (trace BLE), pulses intact - Routine Skin Exam Present: intact, dry, warm - Routine Neurological Exam Present: alert, oriented X3, CN II-XII intact - Routine Psychiatric Exam Present: normal affect, cooperative Results - Labs CBC & Chem 7: 08/27/17 13:34 08/27/17 13:34 Assessment and Plan (1) Periprosthetic fracture around internal prosthetic right hip joint Current visit: Yes Status: Acute Assessment and Plan: Impression Right Ila-prosthetic fracture COPD with intermittent chronic oxygen use Hypertension Irritable bowel syndrome Depression Sleep apnea Hypercholesterolemia GERD Seizure Hx Obesity Plan Admission to the care of Dr. Blair for orthopedic management and plan for surgical repair of periprosthetic fracture tomorrow 08/28. Obtain Chest Xray and EKG for Pre-op clearance Oxygen to maintain adequate saturations. Patient states that she use to only use oxygen at night. However, since previous surgery 3 weeks ago. She has needed oxygen more oxygen around the clock. Consult placed with Dr Toribio as he follows her in the outpatient setting. Place Howard cath to DD given patient does not feel she can void on a bedpan due to the pain Agent reports she has not been receiving her Bentyl and feels that her abdomen is distended and bloated. Will resume Bentyl 10 milligrams before meals at bedtime and will likely have to be aggressive with bowel motivation postoperatively. Will review home medications Patient to be NPO after midnight Patient will require Lovenox 40 milligrams subcutaneous daily 30 days postoperatively for anticoagulation She does wish to be full code, and this orders written. Will discuss further orders and plan of care with attending, Dr Harrison At time of discharge medical care will return to patient's primary care provider , Dr Duran DVT Prophylaxis: SCD's, Lovenox GI Prophylaxis: Pepcid Resuscitation Status: Full Code - Time spent with patient Time with patient PN: 50 minutes - Physician Narrative Physician: Frederick Harrison MD Narrative: Date: 08/27/17 Time: 0 Have independently interviewed and examined pt. Chart reviewed. Case discussed with my ASSESSMENT DIRECTOR. Care plan developed with my supervision; agree with above. Presents to ED secondary to excruciating pain to right hip. Recently underwent hip replacement. Has been having some post op pain but nothing like what she currently has. Pain increased yesterday, much more severe with any movements. No trauma or injury. Home medications not helping pain. Much more nauseated with pain. Had some loose stools yesterday. Appetite very decreased. Breathing feels stable-slight SOA/cough; no pain with breathing. Due to severe pain and inablility to ambulate, EMS activated and patient taken to [facility] ED for evaluation. Found to have periprosthetic fracture to right hip. Lungs: decreased, no distress CV: regular AB: soft nt/nd BS decreased MSE: awake alert appropriate Plan: Inpatient admission for definitive surgical correction of hip fracture. Start IS for pulmonary toilet. Will check vit D level due to fracture. Check UA. Low flow IVF of NS at 50cc/hr for hydration as pt will be NPO overnight for Sx tomorrow. Recheck CBC and BMP in am. CXR showing no acute process. Medically stable for surgery - no obvious contraindication for surgery at this time. Hospital Course Summary Disclaimer: The visit summary below is not to be considered part of the above Progress Note. Hospital Course: Impression Right Ila-prosthetic fracture COPD with intermittent chronic oxygen use Hypertension Irritable bowel syndrome Depression Sleep apnea Hypercholesterolemia GERD Seizure Hx Obesity Plan Admission to the care of Dr. Blair for orthopedic management and plan for surgical repair of periprosthetic fracture tomorrow 08/28. Obtain Chest Xray and EKG for Pre-op clearance Oxygen to maintain adequate saturations. Patient states that she use to only use oxygen at night. However, since previous surgery 3 weeks ago. She has needed oxygen more oxygen around the clock. Consult placed with Dr Toribio as he follows her in the outpatient setting. Place Howard cath to DD given patient does not feel she can void on a bedpan due to the pain Agent reports she has not been receiving her Bentyl and feels that her abdomen is distended and bloated. Will resume Bentyl 10 milligrams before meals at bedtime and will likely have to be aggressive with bowel motivation postoperatively. Will review home medications Patient to be NPO after midnight Patient will require Lovenox 40 milligrams subcutaneous daily 30 days postoperatively for anticoagulation She does wish to be full code, and this orders written. Will discuss further orders and plan of care with attending, Dr Harrison At time of discharge medical care will return to patient's primary care provider , Dr Duran
--- NOTE | 2017-08-27 17:07 | XRay Report ---
Indication: preop PROCEDURE: XR chest 1V: Encounter: Initial Comparison: March 26, 2017 Findings: The lungs are stable in appearance without new focal airspace consolidation. There is no pleural effusion or pneumothorax. The heart size, pulmonary vascularity and mediastinal contours are unchanged. IMPRESSION: Stable appearance of the chest without acute cardiopulmonary disease. .
[2017-08-27] MEDS: ENOXAPARIN 40 MG/0.4 ML INJECTION SQ ONE ×2 (18:33→19:10)
[2017-08-27] MEDS: DICYCLOMINE 10mg CAPSULE PO SCH ×2 (18:33→20:01)
[2017-08-27] MEDS: NS 1,000 ML IV SCH (18:34)
[2017-08-27] MEDS: Oxycodone *IR* 5 MG TABLET PO PRN (20:05)
[2017-08-27] MEDS: MORPHINE SULFATE 4mg INJECTION IVP PRN (21:34)
[2017-08-28] MEDS: Oxycodone *IR* 5 MG TABLET PO PRN ×3 (03:59→22:51)
[2017-08-28] MEDS: MORPHINE SULFATE 4mg INJECTION IVP PRN (04:05)
[2017-08-28] MEDS ORDERED: ONDANSETRON 4 MG/2 ML INJECTION IVP ONE (06:00)
[2017-08-28] MEDS ORDERED: FAMOTIDINE PB 20 MG/50 ML BAG IV ONE (06:00)
[2017-08-28] MEDS ORDERED: ACETAMINOPHEN 500 MG TABLET PO ONE (06:00)
[2017-08-28] MEDS ORDERED: METOCLOPRAMIDE 10mg/2ml INJECTION IVP ONE (06:00)
[2017-08-28] MEDS ORDERED: TRANEXAMIC ACID 1,000 MG in NS 100 ML IV ONE (06:00)
[2017-08-28] MEDS ORDERED: DEXAMETHASONE 4 MG/ML INJECTION IVP ONE (06:00)
[2017-08-28] MEDS ORDERED: EPINEPHrine PF 0.25 MG, BUPIVACAINE 0.25% PF 30 ML, KETOROLAC INJ 60 MG in NS 30 ML OPSITE ONE (06:00)
[2017-08-28] MEDS: NS 1,000 ML IV SCH ×4 (06:26→12:36)
[2017-08-28] MEDS: NOZIN NASAL SWAB NAS SCH ×6 (06:29→21:42)
[2017-08-28] MEDS ORDERED: VANCOMYCIN 1,000 MG INJECTION ONE (06:51)
--- NOTE | 2017-08-28 06:53 | Anesthesia Preoperative Report ---
Anesthesia Preoperative Record - Date and Time Date: 08/28/17 Preoperative Diagnosis: Periprosthetic fracture right proximal femur Proposed Procedure: ORIF Right proximal femur NPO Since Date: 08/27/17 NPO Since Time: 23:00 Allergies/Adverse Reactions: Allergies Allergy/AdvReac Type Severity Reaction Status Date / Time Estrogens Allergy Severe Swelling Verified 08/27/17 20:54 lorazepam [From Ativan] Allergy Severe Behavior Verified 08/27/17 20:54 Disturbance varenicline Allergy Severe hallucinati Verified 08/27/17 20:54 ons Penicillins Allergy Mild Rash Verified 08/27/17 20:54 amoxicillin Allergy Unknown Rash Verified 08/27/17 20:54 ampicillin Allergy Unknown Rash Verified 08/27/17 20:54 Sulfa (Sulfonamide Allergy Unknown Rash Verified 08/27/17 20:54 Antibiotics) codeine AdvReac Unknown altered Verified 08/27/17 20:54 congnition levofloxacin AdvReac Unknown altered Verified 08/27/17 20:54 cognition bupropion HCl AdvReac Unknown altered Uncoded 08/27/17 20:54 cognitive state - Vital Signs Vital Signs: Temperature 96.4 F L 08/27/17 23:31 Pulse Rate 83 08/28/17 06:38 Respiratory Rate 18 08/27/17 23:31 Blood Pressure 129/69 08/27/17 23:31 Pulse Oximetry 93 08/27/17 23:31 Height and Weight: Height 1.6 m Weight 110.3 kg Body Mass Index 43.0 - Medications Inpatient Medications: Current Medications Dicyclomine HCl (Bentyl) 10 mg PO ACHS [facility] Last Admin: 08/27/17 20:01 Dose: 10 mg Epinephrine HCl 0.25 mg/Bupivacaine HCl 30 ml/Ketorolac Tromethamine 60 mg/ Sodium Chloride 62.25 mls @ 1 mls/hr OPSITE INTRAOP ONE PRN Reason: Protocol Stop: 08/30/17 20:14 Sodium Chloride (Normal Saline) 1,000 mls @ 50 mls/hr IV .Q20H [facility] Last Admin: 08/27/17 18:34 Dose: Not Given Sodium Chloride (Normal Saline) 1,000 mls @ 50 mls/hr IV .Q20H [facility] Last Admin: 08/28/17 06:26 Dose: 50 mls/hr Morphine Sulfate (Morphine Sulfate Inj) 4 mg IVP Q2H PRN PRN Reason: Pain Last Admin: 08/28/17 04:05 Dose: 2 mg Ondansetron HCl (Zofran) 4 mg IVP Q6H PRN PRN Reason: Nausea. Oxycodone HCl (Roxicodone *Ir*) 5 - 15 mg PO Q4H PRN PRN Reason: Pain Last Admin: 08/28/17 03:59 Dose: 15 mg Home Medications: Home Medications Medication Instructions Recorded Confirmed Type Atorvastatin Calcium 20 mg PO HS #0 09/20/15 08/27/17 History Furosemide [Lasix] 60 mg PO BID 02/28/17 08/27/17 History Citalopram [Celexa] 60 mg PO DAILY 08/03/17 08/27/17 History Cranberry Fruit [Cranberry] 400 mg PO DAILY 08/03/17 08/27/17 History Acetaminophen [Tylenol] 650 mg PO QID PRN 08/27/17 08/27/17 History Docusate Sodium [Colace] 1 cap PO DAILY 08/27/17 08/27/17 History Gabapentin [Gabapentin] 300 mg PO TID 08/27/17 08/27/17 History Hydrocodone/APAP 5/325 [[place] 1 tab PO Q4H PRN 08/27/17 08/27/17 History 5/325] Ibuprofen [Motrin] 600 mg PO Q6H PRN 08/27/17 08/27/17 History Potassium Chloride [K-Tab ER] 20 meq PO DAILY 08/27/17 08/27/17 History Sennosides/Docusate Sodium 1 each PO DAILY 08/27/17 08/27/17 History [Senna-S Tablet] Is Patient on Beta Roshan?: No - Medical History Respiratory: Reports: Chronic Obstructive Pulmonary Disease (COPD), Sleep Apnea Cardiovascular: Reports: Hypertension DENIES: Angina (states she had arm pain, cardiac cath done and negative), Coronary Artery Disease Gastrointestional: Reports: Hiatal Hernia, Morbid Obesity, Other (IBS w/ constipation) DENIES: Gastroesophageal Reflux Disease Neuro/Musculoskeletal: Reports: HX.MS.OSAR, Back Problems (very painful, ineffective epidural injection), Depression (anxiety ) Renal/Endocrine: DENIES: Diabetes Mellitus Type 2 Other History: DENIES: Anesthesia Reactions - Surgical History Neurological Surgeries: Reports: Other (Exc tumor of cervical spine 1998) Cardiac Surgeries/Treatments: Reports: Cardiac Catheterization Respiratory Surgery/Treatments: Comment Only: Oxygen Administration (at HS-2L/at times during day) GI Surgery/Treatments: Reports: Cholecystectomy (1979), Colonoscopy (polyps), Other (Exc right groin cyst 2001) Reproductive Surgery/Treatment: Reports: Tubal Ligation (1979) Hx Family Anesthesia Reaction: No - Social History Smoking Status: Former smoker Packs per day: 1 Pack-years: 56 Hx Chewing Tobacco Use: No Second Hand Exposure: No Substance Use Type: does not use Alcohol Intake Frequency: does not drink - Pertinent Findings Laboratory: CBC and BMP 08/28/17 03:49 08/28/17 03:49 BMP 08/28/17 03:49 Sodium 144 Potassium 3.8 Chloride 101 Carbon Dioxide 35 H BUN 12.0 Creatinine 0.9 Glucose 83 Calcium 8.7 Urine 08/27/17 Range/Units 19:04 Urine Color Red (YELLOW) Urine Clarity Sl cloudy Urine pH 7.0 (5.0-8.0) Ur Specific [place] 1.010 L (1.015-1.025) Urine Protein Trace A (NEGATIVE) Urine Glucose (UA) Negative (NEGATIVE) EKG: Sinus Rhythm - Physical Exam Respiratory Exam: Present: lungs clear, bilateral breath sounds equal Cardiovascular Exam: Present: regular rate and rhythm, no murmur - Airway Assessment Mallampati Score: III Teeth: upper dentures, lower dentures - ASA ASA Score: 3 - Plan Anesthesia: General Inhalation Gases, Neuroaxial Regional/Trunk Block: Spinal - Discussion Discussion: Discussed risks/options/alternatives of anesthesia and questions answered. Patient consents. Nursing pain assessment noted. Attestation Statement: Prior to the delivery of any anesthetic medication, I examined the patient, developed the plan, obtained the patient's consent and discussed the risk and benefits of the procedure with the patient/guardian. - Additional Information Seen by Anesthesia: Yes
[2017-08-28] MEDS ORDERED: CEFAZOLIN 1 G INJECTION IVP ONE (07:03)
[2017-08-28] MEDS ORDERED: FentaNYL 100 MCG/2 ML INJECTION ONE ×2 (07:04→10:09)
[2017-08-28] MEDS ORDERED: PROPOFOL 20 ML ONE (07:04)
[2017-08-28] MEDS ORDERED: KETAMINE 500 MG/10 ML INJECTION ONE (07:04)
[2017-08-28] MEDS ORDERED: MIDAZOLAM 2mg/2ml INJECTION ONE (07:04)
[2017-08-28] MEDS ORDERED: FentaNYL 250 MCG/5 ML INJECTION ONE (08:05)
[2017-08-28] MEDS ORDERED: EPHEDRINE 50mg/ml INJECTION ONE (08:38)
[2017-08-28] MEDS ORDERED: FUROSEMIDE 40 MG/4 ML INJECTION ONE (09:21)
[2017-08-28] MEDS ORDERED: ONDANSETRON 4 MG/2 ML INJECTION ONE (09:58)
[2017-08-28] MEDS ORDERED: SUGAMMADEX 200mg/2ml INJECTION IVP ONE (09:58)
[2017-08-28] MEDS ORDERED: METOPROLOL 5mg/5ml INJECTION IVP ONE (10:05)
[2017-08-28] MEDS ORDERED: LIDOCAINE 2% (100mg/5mL) PF 5ml vl ONE (10:06)
--- NOTE | 2017-08-28 10:41 | Remote Fluorsocopy Report ---
Indication: ORIF R HIP PROCEDURE: RF hip RT 2 view: Encounter: Initial Comparison: CT and radiographs of the right hip from yesterday Findings: 16 fluoroscopic spot images are submitted for interpretation. Images show open reduction and internal fixation of the right femoral fracture with revision of the femoral component and placement of multiple cerclage wires. Impression: Fluoroscopy as above. Fluoroscopy time is 51.3 seconds. Fluoroscopy dose is 1770 mRad. .
[2017-08-28] MEDS: ALBUTEROL/IPRATROPIUM 2.5mg-0.5mg/3ml NEB AEROSOL SCH ×3 (11:00→20:50)
[2017-08-28] MEDS: FentaNYL 100 MCG/2 ML INJECTION IVP PRN ×2 (11:08→11:18)
--- NOTE | 2017-08-28 12:08 | Anesthesia Postoperative Note ---
- Date and Time Date: 08/28/17 Time: 11:30 - Status Patient Participated in Evaluation: Patient Participated in Person Vital Signs: Temperature 97.1 F 08/28/17 10:26 Pulse Rate 93 08/28/17 11:30 Respiratory Rate 18 08/28/17 11:30 Blood Pressure 127/67 08/28/17 11:30 Pulse Oximetry 94 08/28/17 11:30 Respiratory Function: Airway Patent Cardiovascular Function: Regular Pulse EKG: Sinus Rhythm Mental Status: Alert and Oriented Pain Intensity: 4 Hydration: IV Infusing Complications During Recover: None Apparent - Follow-Up Instructions Instructions: Per Surgeon
[2017-08-28] MEDS ORDERED: NOZIN NASAL SWAB NAS ONE (12:22)
[2017-08-28] MEDS ORDERED: ONDANSETRON 4 MG/2 ML INJECTION IVP PRN (12:22)
[2017-08-28] MEDS ORDERED: DiphenhydrAMINE 50 MG/ML INJECTION IVP PRN (12:22)
[2017-08-28] MEDS ORDERED: DiphenhydrAMINE 25 MG CAPSULE PO PRN (12:22)
[2017-08-28] MEDS: DICYCLOMINE 10mg CAPSULE PO SCH ×4 (12:29→21:43)
--- NOTE | 2017-08-28 14:10 | Progress Note ---
- Date 08/28/17 Subjective: F/U: Right Ila-prosthetic fracture, COPD with intermittent chronic oxygen use, Hypertension Tolerated surgery - Dr Blair did transfuse 2 units due to blood loss. Patient see in her room after surgery-leg very uncomfortable, working with nursing to get comfortable position. Mouth dry, feels very thirsty. Denies nausea or ab pain. Feels breathing okay-not feeling short or breath or congested. Objective Vital signs: Temperature 98.0 F 08/28/17 12:30 Pulse Rate 86 08/28/17 14:04 Respiratory Rate 20 08/28/17 14:04 Blood Pressure 126/66 08/28/17 14:04 Pulse Oximetry 94 08/28/17 14:04 Height/Weight/BMI: Height 1.6 m Weight 111.1 kg Body Mass Index 43.0 - Constitutional Present: moderate distress, well nourished, well developed, average body habitus , morbidly obese, cooperative - Routine HEENT Exam Head: Present: normocephalic, atraumatic Eye: Present: EOMI, PERRL ENT: Present: mucous membranes dry - Routine Respiratory Exam Present: decreased breath sounds. Absent: respiratory distress, rhonchi, wheezes, crackles - Routine Cardiovascular Exam Present: RRR, no murmur - Routine Abdominal Exam Present: soft, non distended, non tender. Absent: normoactive bowel sounds ( decreased) - Routine Extremities Exam Present: pulses intact. Absent: cyanosis, clubbing Comments: SCD present - Routine Musculoskeletal Exam Musculoskeletal: Present: no clubbing or cyanosis - Routine Skin Exam Present: dry, warm - Routine Neurological Exam Present: CN II-XII intact, altered mental status (Anxious with mild confusion), moving all extremities, vision grossly intact, hearing grossly intact. Absent: motor deficit - Routine Psychiatric Exam Present: anxious Results - Labs CBC & Chem 7: 08/28/17 03:49 08/28/17 03:49 Microbiology Results: Microbiology 08/28/17 12:55 Urine, Cath Howard Urine Culture - Preliminary Culture Initiated - Results Pending Assessment and Plan (1) Periprosthetic fracture around internal prosthetic right hip joint Current visit: Yes Status: Acute Assessment and Plan: Impression Right Ila-prosthetic fracture S/P ORIF Right proximal femur by Dr Blair 08/28/17 Blood loss - patient given 2 units pRBC with surgery COPD with intermittent chronic oxygen use Hypertension Irritable bowel syndrome Depression Sleep apnea Hypercholesterolemia GERD Seizure Hx Morbid Obesity with BMI 43.4 Plan OP Day Underwent ORIF Right proximal femur by Dr Blair Transfused 2 units with surgery - repeat H/H pending. Continue to monitor hemoglobin and transfuse as indicated. Continue postoperative pain control. PT/OT consulted to help maximize functional status. Will keep NS at 80cc/hr for hydration until oral drive improves. Encourage IS for pulmonary toilet. Wean O2 as able. Pulm consult has been placed. Continue Howard to monitor urine output-additionally, patient's functional status not to the point of being able to remove Howard. Recheck BMP in secondary to HTN and medication use. Continue to monitor blood counts. Case discussed with CM, Nursing, and Dr Blair. Time spent with patient care 25 minutes. DVT Prophylaxis: SCD's, Lovenox Resuscitation Status: Full Code - Time spent with patient Time with patient PN: 25 minutes - Physician Narrative Physician: Frederick Harrison MD Narrative: Date: 08/28/17 Time: 1407 Hospital Course Summary Disclaimer: The visit summary below is not to be considered part of the above Progress Note. Hospital Course: 08/27/17 Admission Admission to the care of Dr. Blair for orthopedic management and plan for surgical repair of periprosthetic fracture tomorrow 08/28. Obtain Chest Xray and EKG for Pre-op clearance. Oxygen to maintain adequate saturations. Patient states that she use to only use oxygen at night. However, since previous surgery 3 weeks ago. She has needed oxygen more oxygen around the clock. Consult placed with Dr Toribio as he follows her in the outpatient setting. Place Howard cath to DD given patient does not feel she can void on a bedpan due to the pain. Agent reports she has not been receiving her Bentyl and feels that her abdomen is distended and bloated. Will resume Bentyl 10 milligrams before meals at bedtime and will likely have to be aggressive with bowel motivation postoperatively. Will review home medications. Patient to be NPO after midnight. Patient will require Lovenox 40 milligrams subcutaneous daily 30 days postoperatively for anticoagulation. She does wish to be full code, and this orders written. At time of discharge medical care will return to patient's primary care provider , Dr Duran. 08/28/17 OP DAY Underwent ORIF Right proximal femur by Dr Blair Transfused 2 units with surgery - repeat H/H pending. Continue to monitor hemoglobin and transfuse as indicated. Continue postoperative pain control. PT/OT consulted to help maximize functional status. Will keep NS at 80cc/hr for hydration until oral drive improves. Encourage IS for pulmonary toilet. Wean O2 as able. Pulm consult has been placed. Continue Howard to monitor urine output-additionally, patient's functional status not to the point of being able to remove Howard. Recheck BMP in secondary to HTN and medication use. Continue to monitor blood counts.
[2017-08-28] MEDS: GABAPENTIN 300 MG CAPSULE PO SCH ×2 (14:37→21:43)
[2017-08-28] MEDS: ACETAMINOPHEN 325 MG TABLET PO PRN ×2 (14:37→21:42)
[2017-08-28] MEDS: CEFAZOLIN 2 G in NS 50 ML IV SCH ×2 (14:38→22:42)
--- NOTE | 2017-08-28 14:40 | XRay Report ---
Indication: postoperative image PROCEDURE: XR pelvis w/ 1 view RT hip: Encounter: Initial Comparison: Right hip radiographs from yesterday Findings: Postoperative changes with revision of the right femoral component and four new cerclage wires. Expected postoperative subcutaneous gas. Skin shanika. No retained radiopaque surgical instruments or sponges. Impression: Postoperative change as above. .
[2017-08-28] MEDS ORDERED: ALBUTEROL/IPRATROPIUM 2.5mg-0.5mg/3ml NEB AEROSOL SCH (15:00)
--- NOTE | 2017-08-28 15:58 | Operative Note ---
DATE OF SURGERY 08/28/2017 PREOPERATIVE DIAGNOSIS Right paraprosthetic proximal femur fracture. POSTOPERATIVE DIAGNOSIS Right paraprosthetic proximal femur fracture. PROCEDURE Revision total hip arthroplasty and femoral component with cerclage wires. SURGEON Ricardo Blair MD RN OR LVN Tanner Mratin PA-C COMPLICATIONS None. ANESTHESIA General endotracheal tube anesthetic. FLUIDS Please see anesthetic records. She did receive 2 units of packed red blood cells intraoperatively. DESCRIPTION OF PROCEDURE Mrs. Murray and her right thigh were identified and marked in the preoperative holding area. She was brought back to the operating suite. Spinal anesthetic was attempted but was unsuccessful so she was then placed under general anesthesia and intubated. We then transferred her to the operating room table and placed in the lateral decubitus position with her right side up. An axillary roll was placed in her axilla. The right lower extremity was prepped and draped in my normal sterile fashion. Time-out was performed. I utilized her previous posterior incision but extended it distally. Sharp dissection was carried through the subcutaneous tissue. She did have an abundance of cutaneous fat. The IT band was split to allow more exposure distally. A fracture hematoma was evacuated. Her previous capsular repair was well healed. I removed one suture from it and made a new capsulotomy. This allowed us to dislocate the hip. The femoral prosthesis was removed without much difficulty. The wound was thoroughly irrigated. The intramedullary canal was scraped with a curette. We then began reaming and we reamed to a size 17 and we took x-rays. With the 17 in [address] I went ahead and provisionally placed two cables distal to the lesser trochanter and provisionally tightened these with the reamer in place. This reamer was then removed and we placed a final size 17 large stem. It seated well. Fluoroscopic images were used to confirm good position. We then reamed to a 25 body. We then placed a standard 25 body but this was too short so we placed a +10 x 25 body and reduced the hip with a -5 head. This gave her excellent stability. She was a tad short, though, at the knees. A final 25+ 10 body was placed, locking it appropriate anteversion. We then trialed again with a standard head and this gave her good length as well as good stability. After thorough irrigation a final standard head was placed and final reduction performed. I then placed two more cables, one more proximally and one more distally, near the tip of the fracture site. These were all tightened down and clamped. The capsulotomy was repaired with Ethibond. One gram of vancomycin powder was placed into the wound. After thorough irrigation the IT band was closed with #1 Ethibond. Subcutaneous tissue was closed with #1 Vicryl as well as 2-0 Vicryl. The skin was closed with shanika. A joint cocktail was injected throughout the soft tissue towards the end of the procedure. Betadine solution irrigation was used several times during the surgery. The patient did have one low blood pressure at a time where she was having some bleeding from the canal so we did proceed and gave her two units of blood intraoperatively. Otherwise, she was stable throughout the case. After a sterile dressing was placed she was allowed to awaken from general anesthesia and taken to the recovery room under the care of Anesthesia in stable condition. LUCY
[2017-08-28] MEDS: ENOXAPARIN 40 MG/0.4 ML INJECTION SQ SCH (21:42)
[2017-08-28] MEDS: DOCUSATE SODIUM 100 MG CAPSULE PO SCH (21:43)
[2017-08-28] MEDS: FUROSEMIDE 40 MG TABLET PO SCH (21:43)
[2017-08-28] MEDS: ATORVASTATIN 20 MG TABLET PO SCH (21:43)
[2017-08-29] MEDS: NS 1,000 ML IV SCH (01:50)
[2017-08-29] MEDS: Oxycodone *IR* 5 MG TABLET PO PRN ×5 (02:55→22:01)
[2017-08-29] MEDS: DICYCLOMINE 10mg CAPSULE PO SCH ×4 (06:06→20:34)
[2017-08-29] MEDS: CEFAZOLIN 2 G in NS 50 ML IV SCH ×3 (06:06→22:44)
[2017-08-29] MEDS: NOZIN NASAL SWAB NAS SCH ×3 (06:07→22:03)
[2017-08-29] MEDS ORDERED: ALBUTEROL/IPRATROPIUM 2.5mg-0.5mg/3ml NEB AEROSOL PRN (07:24)
[2017-08-29] MEDS: MORPHINE SULFATE 4mg INJECTION IVP PRN (08:45)
[2017-08-29] MEDS: FUROSEMIDE 40 MG TABLET PO SCH ×2 (08:46→20:34)
[2017-08-29] MEDS: SENNA + DOCUSATE TABLET PO SCH (08:46)
[2017-08-29] MEDS: DOCUSATE SODIUM 100 MG CAPSULE PO SCH ×2 (08:46→20:34)
[2017-08-29] MEDS: GABAPENTIN 300 MG CAPSULE PO SCH ×3 (08:46→20:34)
[2017-08-29] MEDS: CITALOPRAM 40 MG TABLET PO SCH (08:47)
[2017-08-29] MEDS: POLYETHYL GLYCOL 3350 17gm PACKET PO SCH (08:48)
[2017-08-29] MEDS: ACETAMINOPHEN 325 MG TABLET PO PRN (08:49)
--- NOTE | 2017-08-29 10:30 | Orthopedic Progress Note ---
Date: Date: 08/29/17 Time: 1025 Subjective/Severity of Illness: Other than hip pain, Gege doesn't have any complaints. She is breathing well, denies CP, has no GI complaints. She was up at the bedside x 1 but has not walked. Denies feeling lightheaded or dizzy. Afebrile, BP122/58, on 2L via NC with stats 90's, Hgb 8.5 , Renal function good , Orthopedic Objective PO Vital signs: Temperature 96.8 F 08/29/17 07:26 Pulse Rate 83 08/29/17 07:26 Respiratory Rate 22 08/29/17 09:45 Blood Pressure 112/58 08/29/17 07:26 Pulse Oximetry 93 08/29/17 09:45 Height and Weight: Height 5 ft 3 in Weight 244 lb 14.937 oz Body Mass Index 43.0 - Constitutional General Appearance: Present: alert, cooperative, mild distress - Respiratory Exam Present: non-labored - Cardiovascular Exam Present: pedal pulses intact - Extremities Exam Extremities: Present: pulses intact. Absent: calf tenderness - Surgical Site Incision: Mepilex dressing intact, no drainage - Integumentary Exam Present: pink, warm, dry - Neurological Exam Present: intact to light touch, no deficits - Psychiatric Exam Present: alert, normal affect - Labs Result Diagrams: 08/29/17 04:47 08/29/17 04:47 Abnormal lab results 08/27/17 08/28/17 08/29/17 Range/Units 15:36 15:06 04:47 Hgb 11.0 L D 8.5 L D (12-16) GM/DL Hct 27.4 L D (36-46) % Glucose (65-110) MG/DL Calcium (8.4-10.2) MG/DL Crossmatch (AHG) See Detail 08/29/17 Range/Units 04:47 Hgb (12-16) GM/DL Hct (36-46) % Glucose 132 H (65-110) MG/DL Calcium 8.0 L D (8.4-10.2) MG/DL Crossmatch (AHG) H & H 08/28/17 08/28/17 08/29/17 Range/Units 03:49 15:06 04:47 Hgb 9.9 L 11.0 L D 8.5 L D (12-16) GM/DL Hct 32.8 L 27.4 L D (36-46) % Orthopedic Assessment and Plan (1) Periprosthetic fracture around internal prosthetic right hip joint Status: Acute Qualifiers: Encounter type: initial encounter Qualified Code(s): M97.01XA - Periprosthetic fracture around internal prosthetic right hip joint, initial encounter; T84.040A - Periprosthetic fracture around internal prosthetic right hip joint, initial encounter Assessment and Plan: Lovenox and SCDs for DVT coverage. Dr Blair wants to continue Kefzol x 3 days due to revision surgery, length of procedure, elevated BMI and need for transfusion. All of which increase risk of surgical infection. Will plan to d/c on Thursday AM. Mobilize with PT / OT. Wt bearing restrictions. Hospitalist to manage her medically. Monitor labs. - Anticoagulation Therapy Anticoagulation: Lovenox 40 mg SQ Daily x 30 days from day of surgery Hospital Course Summary Disclaimer: The visit summary below is not to be considered part of the above Progress Note. Hospital Course: 08/27/17 Admission Admission to the care of Dr. Blair for orthopedic management and plan for surgical repair of periprosthetic fracture tomorrow 08/28. Obtain Chest Xray and EKG for Pre-op clearance. Oxygen to maintain adequate saturations. Patient states that she use to only use oxygen at night. However, since previous surgery 3 weeks ago. She has needed oxygen more oxygen around the clock. Consult placed with Dr Toribio as he follows her in the outpatient setting. Place Howard cath to DD given patient does not feel she can void on a bedpan due to the pain. Agent reports she has not been receiving her Bentyl and feels that her abdomen is distended and bloated. Will resume Bentyl 10 milligrams before meals at bedtime and will likely have to be aggressive with bowel motivation postoperatively. Will review home medications. Patient to be NPO after midnight. Patient will require Lovenox 40 milligrams subcutaneous daily 30 days postoperatively for anticoagulation. She does wish to be full code, and this orders written. At time of discharge medical care will return to patient's primary care provider , Dr Duran. 08/28/17 OP DAY Underwent ORIF Right proximal femur by Dr Blair Transfused 2 units with surgery - repeat H/H pending. Continue to monitor hemoglobin and transfuse as indicated. Continue postoperative pain control. PT/OT consulted to help maximize functional status. Will keep NS at 80cc/hr for hydration until oral drive improves. Encourage IS for pulmonary toilet. Wean O2 as able. Pulm consult has been placed. Continue Howard to monitor urine output-additionally, patient's functional status not to the point of being able to remove Howard. Recheck BMP in secondary to HTN and medication use. Continue to monitor blood counts.
--- NOTE | 2017-08-29 11:13 | Pulmonology Consult Note ---
History of Present Illness Consult date: 08/29/17 Requesting physician: Micheal Blair Reason for consult: COPD Chief complaint: hip surgery History of present illness: Mrs. Murray is a 72-year-old female with COPD. She smoked regularly 1 ppd until about 6 months ago, but still has been "sneaking" cigarettes on occasion. She uses home O2 at 1-2 lpm. She does not have any bronchodilator medications at home but has her brother's nebulizer machine. She has not had any recent respiratory infections. She does not use CPAP at home. She is 3 weeks status post right total hip arthroplasty, and started complaining of severe groin pain with ambulation. Due to this she presented to the ED. In the emergency room she was evaluated by the emergency room staff and a CT scan was ordered as well as an ultrasound. Ultrasound was negative for blood clot the CT scan did show a periprosthetic fracture. Mrs. Murray states that she was doing very well last week started having more pain on Thursday when she was discharged from the [facility]. She states the pain is increased since Thursday in really has been severe in the groin with weightbearing yesterday and today. She does not recall any incident where she stumbled and fell or felt a pop. She complains of only right hip pain. [facility] Patient Stated Medical History Cataracts Yes Dental Problems dentures Other HEENT Yes: glasses Angina No: states she had arm pain, cardiac cath done and negative Coronary Artery Disease No Hypertension Yes Chronic Obstructive Pulmonary Yes Disease (COPD) Sleep Apnea Yes: working with Dr Toribio to get a working CPAP Diabetes Mellitus Type 2 No Gastroesophageal Reflux No Disease Hiatal Hernia Yes Other GI Yes: IBS w/constipation Hx Urinary Tract Infection Yes: improved since taking cranberry Osteoarthritis Yes Cellulitis Yes: lower extremities Anesthesia Reactions No Depression Yes Post Menopausal Yes Clinic Medical History (Last Reviewed 08/05/17 @ 08:32 by Micheal Blair MD) COPD (chronic obstructive pulmonary disease) (Acute Medical) Sleep apnea (Acute Medical) Depression (Chronic Medical) HTN (hypertension) (Chronic Medical) High cholesterol (Chronic Medical) IBS (irritable bowel syndrome) (Chronic Medical) Surgical History: Tubal ligation. LT BLANQUITA 04-02-17 Family History: Family History (Last Reviewed 08/05/17 @ 08:32 by Micheal Blair MD) Mother Cancer Father Heart attack - Social History Smoking status: Former smoker Review of Systems All systems: reviewed and no additional remarkable complaints except as stated - Constitutional Additional comments: no cough or sputum. no recent infections PFSH Patient Stated Medical History Peripheral Neuropathy Yes Cataracts Yes Dental Problems dentures Other HEENT Yes: glasses Angina No: states she had arm pain, cardiac cath done and negative Coronary Artery Disease No Hypertension Yes Chronic Obstructive Pulmonary Yes Disease (COPD) Sleep Apnea Yes Diabetes Mellitus Type 2 No Gastroesophageal Reflux No Disease Hiatal Hernia Yes Other GI Yes: IBS w/constipation Hx Urinary Tract Infection Yes: improved since taking cranberry Osteoarthritis Yes Cellulitis Yes: lower extremities Anesthesia Reactions No Depression Yes: anxiety Post Menopausal Yes Clinic Medical History (Last Reviewed 08/05/17 @ 08:32 by Micheal Blair MD) COPD (chronic obstructive pulmonary disease) (Acute Medical) Sleep apnea (Acute Medical) Depression (Chronic Medical) HTN (hypertension) (Chronic Medical) High cholesterol (Chronic Medical) IBS (irritable bowel syndrome) (Chronic Medical) Surgical History: Tubal ligation- 1979. LT BLANQUITA -03/2017- [facility]. Colonoscopy- 2011. Right BLANQUITA- 08/06/17- [facility]. Right inguinal hernia repair-1999. Cholecystectomy-1979. Lipoma removed from upper back-1991 Family History: Family History (Last Reviewed 08/05/17 @ 08:32 by Micheal Blair MD) Mother Cancer Father Heart attack - Social History Smoking status: Former smoker Does patient use chewing tobacco?: No Medications Home Medications Medication Instructions Recorded Confirmed Type Atorvastatin Calcium 20 mg PO HS #0 09/20/15 08/27/17 History Furosemide [Lasix] 60 mg PO BID 02/28/17 08/27/17 History Citalopram [Celexa] 60 mg PO DAILY 08/03/17 08/27/17 History Cranberry Fruit [Cranberry] 400 mg PO DAILY 08/03/17 08/27/17 History Acetaminophen [Tylenol] 650 mg PO QID PRN 08/27/17 08/27/17 History Docusate Sodium [Colace] 1 cap PO DAILY 08/27/17 08/27/17 History Gabapentin [Gabapentin] 300 mg PO TID 08/27/17 08/27/17 History Hydrocodone/APAP 5/325 [[place] 1 tab PO Q4H PRN 08/27/17 08/27/17 History 5/325] Ibuprofen [Motrin] 600 mg PO Q6H PRN 08/27/17 08/27/17 History Potassium Chloride [K-Tab ER] 20 meq PO DAILY 08/27/17 08/27/17 History Sennosides/Docusate Sodium 1 each PO DAILY 08/27/17 08/27/17 History [Senna-S Tablet] Allergies Allergy/AdvReac Type Severity Reaction Status Date / Time Estrogens Allergy Severe Swelling Verified 08/27/17 20:54 lorazepam [From Ativan] Allergy Severe Behavior Verified 08/27/17 20:54 Disturbance varenicline Allergy Severe hallucinati Verified 08/27/17 20:54 ons Penicillins Allergy Mild Rash Verified 08/27/17 20:54 amoxicillin Allergy Unknown Rash Verified 08/27/17 20:54 ampicillin Allergy Unknown Rash Verified 08/27/17 20:54 Sulfa (Sulfonamide Allergy Unknown Rash Verified 08/27/17 20:54 Antibiotics) codeine AdvReac Unknown altered Verified 08/27/17 20:54 congnition levofloxacin AdvReac Unknown altered Verified 08/27/17 20:54 cognition bupropion HCl AdvReac Unknown altered Uncoded 08/27/17 20:54 cognitive state Exam Vital signs: Temperature 96.8 F 08/29/17 07:26 Pulse Rate 83 08/29/17 07:26 Respiratory Rate 22 08/29/17 09:45 Blood Pressure 112/58 08/29/17 07:26 Pulse Oximetry 93 08/29/17 09:45 - Constitutional no acute distress, obese - Routine HEENT Exam Head: Present: normocephalic, atraumatic Eye: Absent: conjunctival icterus - Routine Neck Exam Present: supple, full ROM - Routine Respiratory Exam Present: decreased breath sounds. Absent: wheezes - Routine Cardiovascular Exam Present: RRR - Routine Abdominal Exam Present: soft. Absent: tenderness, guarding - Routine Extremities Exam Absent: cyanosis, clubbing - Routine Skin Exam Absent: rash - Routine Neurological Exam Present: alert, oriented X3 - Routine Psychiatric Exam Present: normal affect, normal thought process Results - Laboratory Findings CBC and BMP: 08/29/17 10:04 08/29/17 04:47 Abnormal lab findings: Abnormal Labs 08/27/17 08/27/17 08/28/17 15:36 19:04 03:49 RBC Hgb 9.9 L Hct 32.8 L MCV 79.4 L MCH 24.0 L MCHC 30.2 L RDW Std Deviation 57.2 H Immature Gran % (Auto) 1.2 H Neut % (Auto) Lymph % (Auto) 21.9 L [place] % (Auto) 11.1 H Eos % (Auto) 4.6 H [place] # (Auto) Abs Immat Gran (auto) 0.09 H Carbon Dioxide Glucose Calcium Ur Specific [place] 1.010 L Urine Protein Trace A Urine Occult Blood 3+ A Crossmatch (G) See Detail 08/28/17 08/28/17 08/29/17 03:49 15:06 04:47 RBC Hgb 11.0 L D 8.5 L D Hct 27.4 L D MCV MCH MCHC RDW Std Deviation Immature Gran % (Auto) Neut % (Auto) Lymph % (Auto) Turner % (Auto) Eos % (Auto) Turner # (Auto) Abs Immat Gran (auto) Carbon Dioxide 35 H Glucose Calcium Ur Specific [place] Urine Protein Urine Occult Blood Crossmatch ([facility]) 08/29/17 08/29/17 04:47 10:04 RBC 3.43 L Hgb 8.7 L Hct 27.6 L MCV MCH 25.4 L MCHC RDW Std Deviation 55.6 H Immature Gran % (Auto) 0.8 H Neut % (Auto) 70.4 H Lymph % (Auto) 16.8 L Turner % (Auto) 10.8 H Eos % (Auto) Turner # (Auto) 0.9 H Abs Immat Gran (auto) 0.07 H Carbon Dioxide Glucose 132 H Calcium 8.0 L D Ur Specific [place] Urine Protein Urine Occult Blood Crossmatch ([facility]) - Diagnostic Findings Chest x-ray: report reviewed, image reviewed Assessment and Plan (1) Obesity, morbid, BMI 40.0-49.9 Status: Acute Assessment and plan: recommend IS while she is in the hospital. She is at risk for hypoxemic respiratory failure, RODO, atelectasis We will monitor Current Visit: No (2) COPD (chronic obstructive pulmonary disease) Status: Chronic Assessment and plan: recommend O2 at 1-2 lpm to keep sat >90% use nebulized albuterol and ipratropium qid. As an outpatient we will see to perform complete PFT and staging workup. Current Visit: No - Time Spent With Patient Total time spent is greater than 50% in coordination of care (as documented) at patient's floor/unit and/or counseling patient: less than 15 minutes
--- NOTE | 2017-08-29 11:26 | Progress Note ---
- Date 08/29/17 Subjective: She has a 72-year-old female who has been under the primary care of Dr. Yazmin Duran. Patient underwent a elective Right hip arthroplasty for ongoing right degenerative joint disease. During this procedure, patient was found to have greater trochanteric fracture of unknown timing. Postoperatively patient did well, and she was discharged on 08/10/17 at which time she went to [facility] for skilled rehabilitation. She was just discharged from [facility] skilled this past weekend 08/22/17 and was discharged home independently. He called Dr. Blair's office this morning to complain of right-sided groin pain with ambulation. She did not feel that she was able to come to the office for evaluation. Thus, she contacted 911 and was transported to [facility] emergency room for further evaluation. Unfortunately, she was found to have a periprosthetic fracture. Venous Doppler of the lower extremity was also performed that was negative for acute thrombus. Patient was admitted under the care of Dr. Blair with plans for surgical repair on 08/28. The hospitalist services were consulted for medical management given patient's extensive existing comorbidities. Gege was seen upon initial admission. She was alert, oriented and pleasant, on 3 liters of oxygen by nasal cannula. Indicates that she follows chronically with Dr. Toribio given underlying COPD and sleep apnea. Prior to her most recent hospitalization she was wearing oxygen only at night. This am she was seen by me and she reports her pain is not controlled. She is not wanting to move or have anyone touch her because of the pain. Her and other family members are in the room. Nsg reports she complained of LUQ and L below the breast pain that is reproducible with palpation. Pt reports this is not a new pain and it comes and goes. She did not report this to me. She had no complaints of SOA but is still requiring oxygen during the day at 2 liters. She denies cough. She has been diagnosed with RODO but state she was told she did not need a CPAP and that oxygen was enough. she denies lightheadedness. No palp. No CP. No N/V, No abdominal pain. No BM since admission. She had p/o anemia and received 2 units. This is still low but stable presently. Iron panel pending. She is on lovenox 40mg daily and will be on for 30 days. She is also on Cefazolin for three days, Sun is the third day. She is not able to bear weight. She did sit up on side of bed. She is going to be very slow to get going. Objective Vital signs: Temperature 96.2 F L 08/29/17 11:13 Pulse Rate 93 08/29/17 11:13 Respiratory Rate 22 08/29/17 11:13 Blood Pressure 114/65 08/29/17 11:13 Pulse Oximetry 93 08/29/17 09:45 Height/Weight/BMI: Height 1.6 m Weight 111.1 kg Body Mass Index 43.0 Comments: Gen: alert and oriented. In moderate amount of pain Skin: warm and dry HEENT: NC/AT PERRL, EOMI, Sclera, lids and conjunctiva wnl. MMM. OP clear. Neck: No JVD, Carotids 2+ without bruits Lungs: clear. No rales, rhonchi or wheezes CV: regular. No murmur, rub or gallop Abd: soft. +BS. NT/ND, ?distended MS: 1+ edema on the right. SCDs in place. Neuro: No focal deficits Results - Labs CBC & Chem 7: 08/29/17 10:04 08/29/17 04:47 Microbiology Results: Microbiology 08/28/17 12:55 Urine, Cath Howard Urine Culture - Preliminary Culture Initiated - Results Pending Assessment and Plan (1) Periprosthetic fracture around internal prosthetic right hip joint Current visit: Yes Status: Acute Assessment and Plan: Impression/Plan: 1. Right Ila-prosthetic fracture S/P ORIF Right proximal femur by Dr Blair 08/28/17 -Pain control is an issue. Try to wean off IV pain medications. -Try Oxycontin BID with prn short acting for break through -Will be on Lovenox for 30 day -Cefazolin through thu. -PT consulted 2. Anemia s/p transfusion -ABLA -Iron panel pending -Hgb stable today from yesterday, repeat in am. 3. COPD with intermittent chronic oxygen use -Dr. Toribio consulted -Now on daytime as well. -Also h/o RODO only on noc oxygen -Maybe going home with daytime oxygen as well -Nebulizers -Repeat CXR in am. -DC IVF (pt on lasix) 4. Hypertension -Well controlled. Only med is lasix 5. Irritable bowel syndrome -On Bentyl 6. Depression -On Celexa 7. Sleep apnea -On oxygen at night, no CPAP 8. Hypercholesterolemia -On Lipitor 20mg daily 9. On GERD -Protonix 10. Seizure Hx 11. Morbid Obesity with BMI 43.4 -Ambulation my be a problem. Will need lots of encouragement 12. Prophylaxis -PPI, Lovenox and SCDs 13. Will need rehab - Physician Narrative Narrative: Date: 08/29/17 Time: 1120 Hospital Course Summary Disclaimer: The visit summary below is not to be considered part of the above Progress Note. Hospital Course: 08/27/17 Admission Admission to the care of Dr. Blair for orthopedic management and plan for surgical repair of periprosthetic fracture tomorrow 08/28. Obtain Chest Xray and EKG for Pre-op clearance. Oxygen to maintain adequate saturations. Patient states that she use to only use oxygen at night. However, since previous surgery 3 weeks ago. She has needed oxygen more oxygen around the clock. Consult placed with Dr Toribio as he follows her in the outpatient setting. Place Howard cath to DD given patient does not feel she can void on a bedpan due to the pain. Agent reports she has not been receiving her Bentyl and feels that her abdomen is distended and bloated. Will resume Bentyl 10 milligrams before meals at bedtime and will likely have to be aggressive with bowel motivation postoperatively. Will review home medications. Patient to be NPO after midnight. Patient will require Lovenox 40 milligrams subcutaneous daily 30 days postoperatively for anticoagulation. She does wish to be full code, and this orders written. At time of discharge medical care will return to patient's primary care provider , Dr Duran. 08/28/17 OP DAY Underwent ORIF Right proximal femur by Dr Blair Transfused 2 units with surgery - repeat H/H pending. Continue to monitor hemoglobin and transfuse as indicated. Continue postoperative pain control. PT/OT consulted to help maximize functional status. Will keep NS at 80cc/hr for hydration until oral drive improves. Encourage IS for pulmonary toilet. Wean O2 as able. Pulm consult has been placed. Continue Howard to monitor urine output-additionally, patient's functional status not to the point of being able to remove Howard. Recheck BMP in secondary to HTN and medication use. Continue to monitor blood counts.
[2017-08-29] MEDS: ALBUTEROL/IPRATROPIUM 2.5mg-0.5mg/3ml NEB AEROSOL SCH ×3 (14:20→22:06)
[2017-08-29] MEDS ORDERED: FALL RISK - PHARMACY CONSULT XX ONE (15:15)
[2017-08-29] MEDS: ENOXAPARIN 40 MG/0.4 ML INJECTION SQ SCH (20:33)
[2017-08-29] MEDS: ATORVASTATIN 20 MG TABLET PO SCH (20:34)
[2017-08-30] MEDS: Oxycodone *IR* 5 MG TABLET PO PRN ×4 (05:14→22:12)
[2017-08-30] MEDS: NOZIN NASAL SWAB NAS SCH ×3 (06:24→22:14)
[2017-08-30] MEDS: CEFAZOLIN 2 G in NS 50 ML IV SCH ×3 (06:24→22:21)
[2017-08-30] MEDS: DICYCLOMINE 10mg CAPSULE PO SCH ×4 (06:24→22:11)
[2017-08-30] MEDS: PANTOPRAZOLE 40 MG TABLET PO SCH (06:24)
[2017-08-30] MEDS: ALBUTEROL/IPRATROPIUM 2.5mg-0.5mg/3ml NEB AEROSOL SCH ×4 (07:30→19:50)
[2017-08-30] MEDS: POLYETHYL GLYCOL 3350 17gm PACKET PO SCH (08:29)
[2017-08-30] MEDS: FUROSEMIDE 40 MG TABLET PO SCH ×2 (08:29→22:12)
[2017-08-30] MEDS: GABAPENTIN 300 MG CAPSULE PO SCH ×3 (08:29→22:12)
[2017-08-30] MEDS: CITALOPRAM 40 MG TABLET PO SCH (08:30)
[2017-08-30] MEDS: DOCUSATE SODIUM 100 MG CAPSULE PO SCH ×2 (08:31→22:12)
[2017-08-30] MEDS: SENNA + DOCUSATE TABLET PO SCH (08:31)
--- NOTE | 2017-08-30 08:56 | Progress Note ---
- Date 08/30/17 Subjective: She has a 72-year-old female who has been under the primary care of Dr. Yazmin Duran. Patient underwent a elective Right hip arthroplasty for ongoing right degenerative joint disease. During this procedure, patient was found to have greater trochanteric fracture of unknown timing. Postoperatively patient did well, and she was discharged on 08/10/17 at which time she went to [facility] for skilled rehabilitation. She was just discharged from [facility] skilled this past weekend 08/22/17 and was discharged home independently. He called Dr. Blair's office this morning to complain of right-sided groin pain with ambulation. She did not feel that she was able to come to the office for evaluation. Thus, she contacted 911 and was transported to [facility] emergency room for further evaluation. Unfortunately, she was found to have a periprosthetic fracture. Venous Doppler of the lower extremity was also performed that was negative for acute thrombus. Patient was admitted under the care of Dr. Blair with plans for surgical repair on 08/28. The hospitalist services were consulted for medical management given patient's extensive existing comorbidities. Gege was seen upon initial admission. She was alert, oriented and pleasant, on 3 liters of oxygen by nasal cannula. Indicates that she follows chronically with Dr. Toribio given underlying COPD and sleep apnea. Prior to her most recent hospitalization she was wearing oxygen only at night. This morning she continues to complain of uncontrolled pain in her leg. She is not doing much. She did sit at the side of the bed. They tried to stand her but she was unable to stand due to the pain. She is trying to do her exercises in bed. She denies feeling short of breath. She continues to wear oxygen at 3 L. Her weight is up 4.7 kg since admission. She did have a low-grade temp this morning of 99.5 max. She denies chest pain or palpitations. She denies nausea or vomiting. She still has not had a bowel movement but she is passing gas. Objective Vital signs: Temperature 98.0 F 08/30/17 07:34 Pulse Rate 91 08/30/17 07:34 Respiratory Rate 16 08/30/17 07:34 Blood Pressure 139/64 08/30/17 07:34 Pulse Oximetry 92 08/30/17 07:34 Height/Weight/BMI: Height 1.6 m Weight 115.8 kg Body Mass Index 43.0 Comments: Gen: alert and oriented. In moderate amount of pain Skin: warm and dry HEENT: NC/AT PERRL, EOMI, Sclera, lids and conjunctiva wnl. MMM. OP clear. Neck: No JVD, Carotids 2+ without bruits Lungs: clear. No rales, rhonchi or wheezes CV: regular. No murmur, rub or gallop Abd: soft. +BS. NT/ND MS: 1+ edema. SCDs in place. She is extremely tender to even touching either leg. Neuro: No focal deficits Results - Labs CBC & Chem 7: 08/30/17 04:01 08/30/17 04:01 Microbiology Results: Microbiology 08/28/17 12:55 Urine, Cath Howard Urine Culture - Final No Growth After 2 Days Assessment and Plan (1) Periprosthetic fracture around internal prosthetic right hip joint Current visit: Yes Status: Acute Assessment and Plan: Impression/Plan: 1. Right Ila-prosthetic fracture S/P ORIF Right proximal femur by Dr Blair 08/28/17 -Pain control is an issue. Try to wean off IV pain medications. -Try Oxycontin BID with prn short acting for break through -Will be on Lovenox for 30 days -Cefazolin through sun. -PT consulted 2. Anemia s/p transfusion -ABLA -Iron panel pending -Hgb stable, repeat in am. 3. COPD with intermittent chronic oxygen use -Dr. Toribio consulted -Now on daytime as well. -Also h/o RODO only on noc oxygen -Maybe going home with daytime oxygen as well -Nebulizers -Repeat CXR looks a little more wet today, will give extra dose of lasix. -DC IVF (pt on lasix) 4. Hypertension -Well controlled. Only med is lasix 5. Irritable bowel syndrome -On Bentyl 6. Depression -On Celexa 7. Sleep apnea -On oxygen at night, no CPAP -Working with Dr. Toribio to get working CPAP 8. Hypercholesterolemia -On Lipitor 20mg daily 9. On GERD -Protonix 10. Seizure Hx 11. Morbid Obesity with BMI 43.4 -Ambulation my be a problem. Will need lots of encouragement -SNU at some point 12. Prophylaxis -PPI, Lovenox and SCDs 13. Will need rehab - Physician Narrative Narrative: Date: 08/30/17 Time: 0855 Hospital Course Summary Disclaimer: The visit summary below is not to be considered part of the above Progress Note. Hospital Course: 08/27/17 Admission Admission to the care of Dr. Blair for orthopedic management and plan for surgical repair of periprosthetic fracture tomorrow 08/28. Obtain Chest Xray and EKG for Pre-op clearance. Oxygen to maintain adequate saturations. Patient states that she use to only use oxygen at night. However, since previous surgery 3 weeks ago. She has needed oxygen more oxygen around the clock. Consult placed with Dr Toribio as he follows her in the outpatient setting. Place Howard cath to DD given patient does not feel she can void on a bedpan due to the pain. Agent reports she has not been receiving her Bentyl and feels that her abdomen is distended and bloated. Will resume Bentyl 10 milligrams before meals at bedtime and will likely have to be aggressive with bowel motivation postoperatively. Will review home medications. Patient to be NPO after midnight. Patient will require Lovenox 40 milligrams subcutaneous daily 30 days postoperatively for anticoagulation. She does wish to be full code, and this orders written. At time of discharge medical care will return to patient's primary care provider , Dr Duran. 08/28/17 OP DAY Underwent ORIF Right proximal femur by Dr Blair Transfused 2 units with surgery - repeat H/H pending. Continue to monitor hemoglobin and transfuse as indicated. Continue postoperative pain control. PT/OT consulted to help maximize functional status. Will keep NS at 80cc/hr for hydration until oral drive improves. Encourage IS for pulmonary toilet. Wean O2 as able. Pulm consult has been placed. Continue Howard to monitor urine output-additionally, patient's functional status not to the point of being able to remove Howard. Recheck BMP in secondary to HTN and medication use. Continue to monitor blood counts.
--- NOTE | 2017-08-30 09:57 | Orthopedic Progress Note ---
Date: Date: 08/30/17 Time: 953 Subjective/Severity of Illness: Gege is feeling a little better today. Hgb stable at 8.5 She can tell the incisional pain is improving and pain is the leg is also better. Breathing okay but is still using some Oxygen. CXR ordered this AM. Had a low grade temp overnight. On scheduled Tylenol. Still on IV Kefzol which will be dc'd tomorrow. UA done earlier showed no signs of infection. Pt denies CP or GI issues. No specific complaints today. Orthopedic Objective PO Vital signs: Temperature 98.0 F 08/30/17 07:34 Pulse Rate 91 08/30/17 07:34 Respiratory Rate 16 08/30/17 07:34 Blood Pressure 139/64 08/30/17 07:34 Pulse Oximetry 92 08/30/17 07:34 Height and Weight: Height 5 ft 3 in Weight 255 lb 4.725 oz Body Mass Index 43.0 - Constitutional General Appearance: Present: alert, cooperative, mild distress - Respiratory Exam Present: non-labored - Cardiovascular Exam Present: pedal pulses intact - Extremities Exam Extremities: Present: pulses intact. Absent: calf tenderness - Hip Exam Hip Exam: Present: alignment normal - Surgical Site Incision: Mepilex dressing intact, no drainage - Integumentary Exam Present: pink, warm, dry - Neurological Exam Present: intact to light touch, no deficits - Psychiatric Exam Present: alert, normal affect - Labs Result Diagrams: 08/30/17 04:01 08/30/17 04:01 Abnormal lab results 08/29/17 08/30/17 08/30/17 Range/Units 10:04 04:01 04:01 RBC 3.43 L 3.42 L (4.00-5.20) M/MM3 Hgb 8.7 L 8.6 L (12-16) GM/DL Hct 27.6 L 27.7 L (36-46) % MCH 25.4 L 25.1 L (26-34) UUG RDW Std Deviation 55.6 H 58.0 H (36.9-50.2) FL Immature Gran % (Auto) 0.8 H (0.0-0.5) % Neut % (Auto) 70.4 H (33-66) % Lymph % (Auto) 16.8 L (23-45) % Izard % (Auto) 10.8 H (0-9.0) % Izard # (Auto) 0.9 H (0-0.8) T/MM3 Abs Immat Gran (auto) 0.07 H (0.00-0.03) T/MM3 Neutrophils % (Manual) 79.0 H (33-66) % Lymphocytes % (Manual) 16.0 L (23-45) % Neutrophils # (Manual) 8.0 H (1.8-7.7) T/MM3 Carbon Dioxide 32 H (22-30) MEQ/L Glucose 132 H (65-110) MG/DL H & H 08/28/17 08/28/17 08/29/17 Range/Units 03:49 15:06 04:47 Hgb 9.9 L 11.0 L D 8.5 L D (12-16) GM/DL Hct 32.8 L 27.4 L D (36-46) % 08/29/17 08/30/17 Range/Units 10:04 04:01 Hgb 8.7 L 8.6 L (12-16) GM/DL Hct 27.6 L 27.7 L (36-46) % Orthopedic Assessment and Plan (1) Periprosthetic fracture around internal prosthetic right hip joint Status: Acute Qualifiers: Encounter type: initial encounter Qualified Code(s): M97.01XA - Periprosthetic fracture around internal prosthetic right hip joint, initial encounter; T84.040A - Periprosthetic fracture around internal prosthetic right hip joint, initial encounter Assessment and Plan: Lovenox and SCDs for DVT coverage. Dr Blair wants to continue Kefzol x 3 days due to revision surgery, length of procedure, elevated BMI and need for transfusion. All of which increase risk of surgical infection. Will plan to stop the Kefzol on Thursday AM. Mobilize with PT / OT. Wt bearing restrictions. Hospitalist to manage her medically. Hgb stable this AM. Hospital Course Summary Disclaimer: The visit summary below is not to be considered part of the above Progress Note. Hospital Course: 08/27/17 Admission Admission to the care of Dr. Blair for orthopedic management and plan for surgical repair of periprosthetic fracture tomorrow 08/28. Obtain Chest Xray and EKG for Pre-op clearance. Oxygen to maintain adequate saturations. Patient states that she use to only use oxygen at night. However, since previous surgery 3 weeks ago. She has needed oxygen more oxygen around the clock. Consult placed with Dr Toribio as he follows her in the outpatient setting. Place Howard cath to DD given patient does not feel she can void on a bedpan due to the pain. Agent reports she has not been receiving her Bentyl and feels that her abdomen is distended and bloated. Will resume Bentyl 10 milligrams before meals at bedtime and will likely have to be aggressive with bowel motivation postoperatively. Will review home medications. Patient to be NPO after midnight. Patient will require Lovenox 40 milligrams subcutaneous daily 30 days postoperatively for anticoagulation. She does wish to be full code, and this orders written. At time of discharge medical care will return to patient's primary care provider , Dr Duran. 08/28/17 OP DAY Underwent ORIF Right proximal femur by Dr Blair Transfused 2 units with surgery - repeat H/H pending. Continue to monitor hemoglobin and transfuse as indicated. Continue postoperative pain control. PT/OT consulted to help maximize functional status. Will keep NS at 80cc/hr for hydration until oral drive improves. Encourage IS for pulmonary toilet. Wean O2 as able. Pulm consult has been placed. Continue Howard to monitor urine output-additionally, patient's functional status not to the point of being able to remove Howard. Recheck BMP in secondary to HTN and medication use. Continue to monitor blood counts.
--- NOTE | 2017-08-30 10:38 | XRay Report ---
Indication: hypoxia PROCEDURE: XR chest 1V: Encounter: Initial Comparison: August 27, 2017 Findings: The lungs are stable in appearance without new focal airspace consolidation. There is no pleural effusion or pneumothorax. The heart size, pulmonary vascularity and mediastinal contours are unchanged. IMPRESSION: Stable appearance of the chest without acute cardiopulmonary disease. .
[2017-08-30] MEDS ORDERED: NS FLUSH BAG 500ml IV PRN (15:04)
[2017-08-30] MEDS ORDERED: BISACODYL 10 MG SUPPOSITORY RECTALLY SCH (20:00)
[2017-08-30] MEDS: ATORVASTATIN 20 MG TABLET PO SCH (22:11)
[2017-08-30] MEDS: ENOXAPARIN 40 MG/0.4 ML INJECTION SQ SCH (22:14)
[2017-08-31] MEDS: NOZIN NASAL SWAB NAS SCH ×4 (06:28→21:44)
[2017-08-31] MEDS: PANTOPRAZOLE 40 MG TABLET PO SCH (06:28)
[2017-08-31] MEDS: Oxycodone *IR* 5 MG TABLET PO PRN ×3 (06:28→19:02)
[2017-08-31] MEDS: CEFAZOLIN 2 G in NS 50 ML IV SCH (06:28)
[2017-08-31] MEDS: DICYCLOMINE 10mg CAPSULE PO SCH ×4 (06:29→20:06)
[2017-08-31] MEDS: ALBUTEROL/IPRATROPIUM 2.5mg-0.5mg/3ml NEB AEROSOL SCH ×4 (06:30→21:35)
--- NOTE | 2017-08-31 09:36 | Pulmonology Progress Note ---
Subjective Principal diagnosis: Fx hip Interval history: Pt up to chair, states no cough or sputum at this time, no SOB noted either. Using O2 at 3L per NC. Exam Vital signs: Temperature 98 F 08/31/17 04:00 Pulse Rate 97 08/31/17 04:00 Respiratory Rate 20 08/31/17 06:30 Blood Pressure 134/69 08/31/17 04:00 Pulse Oximetry 92 08/31/17 06:30 - Constitutional no acute distress, morbidly obese, cooperative - Routine HEENT Exam Head: Present: normocephalic, atraumatic Eye: Present: EOMI, PERRL ENT: Present: mucous membranes moist - Routine Neck Exam Present: supple, full ROM, trachea midline - Routine Respiratory Exam Present: accessory muscle use, decreased breath sounds. Absent: patient mechanically ventilated - Routine Cardiovascular Exam Present: RRR, S1, S2, no murmur - Routine Abdominal Exam Present: soft, normoactive bowel sounds, non distended - Routine Extremities Exam Present: edema, non tender, pulses intact - Routine Back/Spine/Pelvis Exam Back/Spine: Present: full ROM - Routine Skin Exam Present: intact, dry - Routine Neurological Exam Present: alert, oriented X3, CN II-XII intact - Routine Psychiatric Exam Present: normal affect, normal thought process - Urinary Catheter Management Urethral Cath placed during this visit: yes Insertion date: 08/27/17 Insertion time: 17:30 2-way Urethral Cath placed during this visit: no Assessment and Plan - Assessment and Plan COPD Morbid Obesity R hip periprosthetic fx s/p repair Plan: Pt currently on O2 at 3L per NC, states only uses O2 2L at noc at home. CXR with cardiomegaly, otherwise no acute process. Would encourage IS q1hr, on a/a no wheezing noted. If requiring daytime O2 at dismissal will need an ExOx to arrange for daytime O2 at home. - Time Spent With Patient Total time spent is greater than 50% in coordination of care (as documented) at patient's floor/unit and/or counseling patient: less than 15 minutes
[2017-08-31] MEDS: GABAPENTIN 300 MG CAPSULE PO SCH ×3 (09:52→20:06)
[2017-08-31] MEDS: SENNA + DOCUSATE TABLET PO SCH (09:52)
[2017-08-31] MEDS: DOCUSATE SODIUM 100 MG CAPSULE PO SCH ×2 (09:52→20:08)
[2017-08-31] MEDS: CITALOPRAM 40 MG TABLET PO SCH (09:53)
[2017-08-31] MEDS: POLYETHYL GLYCOL 3350 17gm PACKET PO SCH (09:53)
[2017-08-31] MEDS: FUROSEMIDE 40 MG TABLET PO SCH ×2 (10:26→20:06)
--- NOTE | 2017-08-31 11:23 | Orthopedic Progress Note ---
Date: Date: 08/31/17 Time: 112 Subjective/Severity of Illness: Gege was seen today on morning rounds. She is getting along well and has little pain this morning. She has not been up with physical therapy but is expecting to begin today. Her weight is up but she is denying shortness of breath or cough. She has no chest pain. She continues to be on some oxygen. Labs are remaining stable. Orthopedic Objective PO Vital signs: Temperature 98 F 08/31/17 04:00 Pulse Rate 97 08/31/17 04:00 Respiratory Rate 20 08/31/17 06:30 Blood Pressure 134/69 08/31/17 04:00 Pulse Oximetry 92 08/31/17 06:30 Height and Weight: Height 5 ft 3 in Weight 255 lb 4.725 oz Body Mass Index 43.0 - Constitutional General Appearance: Present: alert, cooperative, mild distress - Respiratory Exam Present: non-labored - Cardiovascular Exam Present: peripheral edema, pedal pulses intact - Extremities Exam Extremities: Present: pulses intact. Absent: calf tenderness - Hip Exam Hip Exam: Present: alignment normal - Surgical Site Incision: Mepilex dressing intact, no drainage - Integumentary Exam Present: pink, warm, dry - Neurological Exam Present: intact to light touch, no deficits - Psychiatric Exam Present: alert, normal affect - Labs Result Diagrams: 08/31/17 03:53 08/31/17 03:53 Abnormal lab results 08/27/17 08/29/17 08/31/17 Range/Units 15:36 10:04 03:53 RBC 3.37 L (4.00-5.20) M/MM3 Hgb 8.7 L (12-16) GM/DL Hct 27.6 L (36-46) % MCH 25.8 L (26-34) UUG RDW Std Deviation 59.8 H (36.9-50.2) FL Immature Gran % (Auto) 1.2 H (0.0-0.5) % Neut % (Auto) 69.2 H (33-66) % Lymph % (Auto) 13.1 L (23-45) % Slope % (Auto) 10.7 H (0-9.0) % Eos % (Auto) 5.4 H (0-4) % Slope # (Auto) 1.1 H (0-0.8) T/MM3 Abs Immat Gran (auto) 0.12 H (0.00-0.03) T/MM3 Chloride (98-107) MEQ/L Carbon Dioxide (22-30) MEQ/L Iron 15 L (37-170) UG/DL % Saturation 6 L (9-55) % Crossmatch (AHG) See Detail 08/31/17 Range/Units 03:53 RBC (4.00-5.20) M/MM3 Hgb (12-16) GM/DL Hct (36-46) % MCH (26-34) UUG RDW Std Deviation (36.9-50.2) FL Immature Gran % (Auto) (0.0-0.5) % Neut % (Auto) (33-66) % Lymph % (Auto) (23-45) % Slope % (Auto) (0-9.0) % Eos % (Auto) (0-4) % Slope # (Auto) (0-0.8) T/MM3 Abs Immat Gran (auto) (0.00-0.03) T/MM3 Chloride 97 L (98-107) MEQ/L Carbon Dioxide 36 H (22-30) MEQ/L Iron (37-170) UG/DL % Saturation (9-55) % Crossmatch (AHG) H & H 08/28/17 08/28/17 08/29/17 Range/Units 03:49 15:06 04:47 Hgb 9.9 L 11.0 L D 8.5 L D (12-16) GM/DL Hct 32.8 L 27.4 L D (36-46) % 08/29/17 08/30/17 08/31/17 Range/Units 10:04 04:01 03:53 Hgb 8.7 L 8.6 L 8.7 L (12-16) GM/DL Hct 27.6 L 27.7 L 27.6 L (36-46) % Orthopedic Assessment and Plan (1) Periprosthetic fracture around internal prosthetic right hip joint Status: Acute Qualifiers: Encounter type: initial encounter Qualified Code(s): M97.01XA - Periprosthetic fracture around internal prosthetic right hip joint, initial encounter; T84.040A - Periprosthetic fracture around internal prosthetic right hip joint, initial encounter Assessment and Plan: Lovenox and SCDs for DVT coverage. Dr Blair wants to continue Kefzol x 3 days due to revision surgery, length of procedure, elevated BMI and need for transfusion. All of which increase risk of surgical infection. Will plan to stop the Kefzol today. Mobilize with PT / OT. Wt bearing restrictions. Hospitalist to manage her medically. Hgb stable this AM. Hospital Course Summary Disclaimer: The visit summary below is not to be considered part of the above Progress Note. Hospital Course: 08/27/17 Admission Admission to the care of Dr. Blair for orthopedic management and plan for surgical repair of periprosthetic fracture tomorrow 08/28. Obtain Chest Xray and EKG for Pre-op clearance. Oxygen to maintain adequate saturations. Patient states that she use to only use oxygen at night. However, since previous surgery 3 weeks ago. She has needed oxygen more oxygen around the clock. Consult placed with Dr Toribio as he follows her in the outpatient setting. Place Howard cath to DD given patient does not feel she can void on a bedpan due to the pain. Agent reports she has not been receiving her Bentyl and feels that her abdomen is distended and bloated. Will resume Bentyl 10 milligrams before meals at bedtime and will likely have to be aggressive with bowel motivation postoperatively. Will review home medications. Patient to be NPO after midnight. Patient will require Lovenox 40 milligrams subcutaneous daily 30 days postoperatively for anticoagulation. She does wish to be full code, and this orders written. At time of discharge medical care will return to patient's primary care provider , Dr Duran. 08/28/17 OP DAY Underwent ORIF Right proximal femur by Dr Blair Transfused 2 units with surgery - repeat H/H pending. Continue to monitor hemoglobin and transfuse as indicated. Continue postoperative pain control. PT/OT consulted to help maximize functional status. Will keep NS at 80cc/hr for hydration until oral drive improves. Encourage IS for pulmonary toilet. Wean O2 as able. Pulm consult has been placed. Continue Howard to monitor urine output-additionally, patient's functional status not to the point of being able to remove Howard. Recheck BMP in secondary to HTN and medication use. Continue to monitor blood counts.
[2017-08-31] MEDS ORDERED: BISACODYL 10 MG SUPPOSITORY RECTALLY ONE (19:18)
--- NOTE | 2017-08-31 19:24 | Progress Note ---
- Date 08/31/17 Subjective: The patient is seen in her room this evening. She complains of pain in her right hip and complains of abdominal discomfort. She states she has not had a bowel movement since Thursday. She had a Dulcolax suppository this morning with no relief. She denies any shortness of breath. She denies any chest pain. Objective Vital signs: Temperature 97.9 F 08/31/17 12:00 Pulse Rate 88 08/31/17 12:00 Respiratory Rate 16 08/31/17 15:50 Blood Pressure 141/79 H 08/31/17 12:00 Pulse Oximetry 92 08/31/17 12:00 Height/Weight/BMI: Height 1.6 m Weight 115.8 kg Body Mass Index 43.0 Comments: Afebrile, heart rate 88, respirations 18, blood pressure 141/79, O2 sat 92% on 2 L GEN-alert, oriented, no acute distress CV-regular rate and rhythm CHEST-clear to auscultation from the anterior ABD-soft, moderate distention, hyperactive bowel sounds, mildly tender without rebound or guarding -Howard in place with good urine output EXT-+ 1 pedal edema NEURO-alert and oriented 3, no focal deficits SKIN-warm and dry without rashes Results - Labs CBC & Chem 7: 08/31/17 03:53 08/31/17 03:53 Labs: Iron sat is low at 6%. Iron is low at 15. 25 hydroxy vitamin D is low at 12 Microbiology Results: Microbiology 08/28/17 12:55 Urine, Cath Howard Urine Culture - Final No Growth After 2 Days Assessment and Plan (1) Periprosthetic fracture around internal prosthetic right hip joint Current visit: Yes Status: Acute Assessment and Plan: Impression/Plan: 1. Right Ila-prosthetic fracture S/P ORIF Right proximal femur by Dr Blair 08/28/17 -Pain control is an issue. Try to wean off IV pain medications. -Try Oxycontin BID with prn short acting for break through -Will be on Lovenox for 30 days -PT consulted 2. Anemia s/p transfusion -ABLA -Hgb stable, repeat in am. 3. COPD with intermittent chronic oxygen use . Uses O2 at 2 L at night only at home -Dr. Toribio consulted -Now on daytime as well. -Also h/o RODO only on noc oxygen -Maybe going home with daytime oxygen as well -Nebulizers 4. Hypertension -Well controlled. Only med is lasix 5. Irritable bowel syndrome -On Bentyl 6. Depression -On Celexa 7. Sleep apnea -On oxygen at night, no CPAP -Working with Dr. Toribio to get working CPAP 8. Hypercholesterolemia -On Lipitor 20mg daily 9. On GERD -Protonix 10. Seizure Hx 11. Morbid Obesity with BMI 43.4 -Ambulation my be a problem. Will need lots of encouragement -SNU at some point 12. Prophylaxis -PPI, Lovenox and SCDs 13. Will need rehab 14. Abdominal distention/constipation -Check KUB -Milk of magnesia today -Dulcolax suppository 15. Iron deficiency -Consider oral iron when GI symptoms are better, versus IV iron replacement 16. Chronic Lasix -Check renal panel and magnesium tomorrow - Physician Narrative Narrative: Date: 08/31/17 Time: 1918 Hospital Course Summary Disclaimer: The visit summary below is not to be considered part of the above Progress Note. Hospital Course: 08/27/17 Admission Admission to the care of Dr. Blair for orthopedic management and plan for surgical repair of periprosthetic fracture tomorrow 08/28. Obtain Chest Xray and EKG for Pre-op clearance. Oxygen to maintain adequate saturations. Patient states that she use to only use oxygen at night. However, since previous surgery 3 weeks ago. She has needed oxygen more oxygen around the clock. Consult placed with Dr Toribio as he follows her in the outpatient setting. Place Howard cath to DD given patient does not feel she can void on a bedpan due to the pain. Agent reports she has not been receiving her Bentyl and feels that her abdomen is distended and bloated. Will resume Bentyl 10 milligrams before meals at bedtime and will likely have to be aggressive with bowel motivation postoperatively. Will review home medications. Patient to be NPO after midnight. Patient will require Lovenox 40 milligrams subcutaneous daily 30 days postoperatively for anticoagulation. She does wish to be full code, and this orders written. At time of discharge medical care will return to patient's primary care provider , Dr Duran. 08/28/17 OP DAY Underwent ORIF Right proximal femur by Dr Blair Transfused 2 units with surgery - repeat H/H pending. Continue to monitor hemoglobin and transfuse as indicated. Continue postoperative pain control. PT/OT consulted to help maximize functional status. Will keep NS at 80cc/hr for hydration until oral drive improves. Encourage IS for pulmonary toilet. Wean O2 as able. Pulm consult has been placed. Continue Howard to monitor urine output-additionally, patient's functional status not to the point of being able to remove Howard. Recheck BMP in secondary to HTN and medication use. Continue to monitor blood counts.
[2017-08-31] MEDS: ENOXAPARIN 40 MG/0.4 ML INJECTION SQ SCH (20:06)
[2017-08-31] MEDS: ATORVASTATIN 20 MG TABLET PO SCH (20:06)
[2017-09-01] MEDS: Oxycodone *IR* 5 MG TABLET PO PRN ×4 (03:18→20:41)
[2017-09-01] MEDS: NOZIN NASAL SWAB NAS SCH ×3 (05:51→21:04)
[2017-09-01] MEDS: DICYCLOMINE 10mg CAPSULE PO SCH ×4 (05:51→20:39)
[2017-09-01] MEDS: PANTOPRAZOLE 40 MG TABLET PO SCH (05:51)
[2017-09-01] MEDS: ALBUTEROL/IPRATROPIUM 2.5mg-0.5mg/3ml NEB AEROSOL SCH ×4 (07:00→20:00)
--- NOTE | 2017-09-01 07:54 | Orthopedic Progress Note ---
Date: Date: 09/01/17 Time: 749 Subjective/Severity of Illness: Gege was seen today on morning rounds. She states her pain is a 4 when in bed, but gets up to a 9or 10 when out of bed. She states she got up to a chair yesterday. She has been constipated and Dr. Lang has been addressing this. She states she has flatus, but no BM. Her weight is up but she is denying shortness of breath or cough. She has no chest pain. She continues to be on some oxygen. Labs are remaining stable. Orthopedic Objective PO Vital signs: Temperature 96.5 F L 09/01/17 03:36 Pulse Rate 90 09/01/17 03:36 Respiratory Rate 22 09/01/17 07:00 Blood Pressure 126/68 09/01/17 03:36 Pulse Oximetry 94 09/01/17 07:00 Height and Weight: Height 5 ft 3 in Weight 255 lb 4.725 oz Body Mass Index 43.0 - Constitutional General Appearance: Present: alert, cooperative, mild distress - Respiratory Exam Present: non-labored - Cardiovascular Exam Present: peripheral edema, pedal pulses intact - Abdominal Exam Present: tenderness, distended - Extremities Exam Extremities: Present: pulses intact. Absent: calf tenderness, extremity cold to touch - Hip Exam Hip Exam: Present: alignment normal - Surgical Site Incision: clean, dry, intact, Mepilex dressing intact, no drainage - Integumentary Exam Present: pink, warm, dry - Neurological Exam Present: intact to light touch, no deficits - Psychiatric Exam Present: alert, normal affect - Labs Result Diagrams: 09/01/17 04:25 09/01/17 04:25 Abnormal lab results 08/28/17 09/01/17 09/01/17 Range/Units 03:49 04:25 04:25 RBC 3.19 L (4.00-5.20) M/MM3 Hgb 8.0 L (12-16) GM/DL Hct 26.1 L (36-46) % MCH 25.1 L (26-34) UUG MCHC 30.7 L (31-37) GM/DL RDW Std Deviation 59.1 H (36.9-50.2) FL Lymphocytes % (Manual) 16.0 L (23-45) % Eosinophils % (Manual) 5.0 H (0-4) % Metamyelocytes % 2.0 H (0-0) % Myelocytes % 2.0 H (0-0) % Chloride 96 L (98-107) MEQ/L Carbon Dioxide 37 H (22-30) MEQ/L Glucose 138 H (65-110) MG/DL Albumin 2.9 L (3.5-5.0) G/DL 25-OH Vitamin D Total 12 L (30-100) ng/mL H & H 08/28/17 08/28/17 08/29/17 Range/Units 03:49 15:06 04:47 Hgb 9.9 L 11.0 L D 8.5 L D (12-16) GM/DL Hct 32.8 L 27.4 L D (36-46) % 08/29/17 08/30/17 08/31/17 Range/Units 10:04 04:01 03:53 Hgb 8.7 L 8.6 L 8.7 L (12-16) GM/DL Hct 27.6 L 27.7 L 27.6 L (36-46) % 09/01/17 Range/Units 04:25 Hgb 8.0 L (12-16) GM/DL Hct 26.1 L (36-46) % Orthopedic Assessment and Plan (1) Periprosthetic fracture around internal prosthetic right hip joint Status: Acute Qualifiers: Encounter type: initial encounter Qualified Code(s): M97.01XA - Periprosthetic fracture around internal prosthetic right hip joint, initial encounter; T84.040A - Periprosthetic fracture around internal prosthetic right hip joint, initial encounter Assessment and Plan: Lovenox and SCDs for DVT coverage. Dr Blair wants to continue Kefzol x 3 days due to revision surgery, length of procedure, elevated BMI and need for transfusion. All of which increase risk of surgical infection. Will plan to stop the Kefzol today. Mobilize with PT / OT. Wt bearing restrictions. Hospitalist to manage her medically. I did discuss her constipation with Kassie ISRAEL. Hgb stable this AM. Hospital Course Summary Disclaimer: The visit summary below is not to be considered part of the above Progress Note. Hospital Course: 08/27/17 Admission Admission to the care of Dr. Blair for orthopedic management and plan for surgical repair of periprosthetic fracture tomorrow 08/28. Obtain Chest Xray and EKG for Pre-op clearance. Oxygen to maintain adequate saturations. Patient states that she use to only use oxygen at night. However, since previous surgery 3 weeks ago. She has needed oxygen more oxygen around the clock. Consult placed with Dr Toribio as he follows her in the outpatient setting. Place Howard cath to DD given patient does not feel she can void on a bedpan due to the pain. Agent reports she has not been receiving her Bentyl and feels that her abdomen is distended and bloated. Will resume Bentyl 10 milligrams before meals at bedtime and will likely have to be aggressive with bowel motivation postoperatively. Will review home medications. Patient to be NPO after midnight. Patient will require Lovenox 40 milligrams subcutaneous daily 30 days postoperatively for anticoagulation. She does wish to be full code, and this orders written. At time of discharge medical care will return to patient's primary care provider , Dr Duran. 08/28/17 OP DAY Underwent ORIF Right proximal femur by Dr Blair Transfused 2 units with surgery - repeat H/H pending. Continue to monitor hemoglobin and transfuse as indicated. Continue postoperative pain control. PT/OT consulted to help maximize functional status. Will keep NS at 80cc/hr for hydration until oral drive improves. Encourage IS for pulmonary toilet. Wean O2 as able. Pulm consult has been placed. Continue Howard to monitor urine output-additionally, patient's functional status not to the point of being able to remove Howard. Recheck BMP in secondary to HTN and medication use. Continue to monitor blood counts.
--- NOTE | 2017-09-01 08:10 | XRay Report ---
Indication: abdominal pain, ?ileus PROCEDURE: XR abdomen 2V: Encounter: Initial Comparison: December 13, 2016 Findings: The visualized lung bases are clear. There is no free air on the upright view. The bowel gas pattern is nonobstructive. Gas is seen in nondilated small and large bowel to the level of the rectum. Moderate stool is seen throughout the colon. Cholecystectomy clips. Impression: Possible ileus. There is a preliminary report by [facility]. .
[2017-09-01] MEDS: METOCLOPRAMIDE 10mg/2ml INJECTION IVP SCH ×3 (08:45→20:39)
[2017-09-01] MEDS: SENNA + DOCUSATE TABLET PO SCH (08:46)
[2017-09-01] MEDS: CITALOPRAM 40 MG TABLET PO SCH (08:46)
[2017-09-01] MEDS: GABAPENTIN 300 MG CAPSULE PO SCH ×3 (08:46→20:40)
[2017-09-01] MEDS: FUROSEMIDE 40 MG TABLET PO SCH ×2 (08:46→20:39)
[2017-09-01] MEDS: DOCUSATE SODIUM 100 MG CAPSULE PO SCH ×2 (08:46→20:39)
[2017-09-01] MEDS: BISACODYL 10 MG SUPPOSITORY RECTALLY SCH ×2 (08:47→15:33)
[2017-09-01] MEDS: POLYETHYL GLYCOL 3350 17gm PACKET PO SCH (08:48)
--- NOTE | 2017-09-01 09:42 | Progress Note ---
- Date 09/01/17 Subjective: Gege is seen today in follow up. She is resting in bed talking on the phone. Abdomen is noted to be mildly distended with hypoactive bowel sounds. Denies having abdominal pain or nausea and vomiting. She reports having mild hip pain. No chest pain, shortness of breath. Currently on 2 liters of oxygen by nasal cannula. Vital signs stable. Objective Vital signs: Temperature 97.6 F 09/01/17 08:00 Pulse Rate 85 09/01/17 08:00 Respiratory Rate 20 09/01/17 08:00 Blood Pressure 120/65 09/01/17 08:00 Pulse Oximetry 92 09/01/17 08:00 Height/Weight/BMI: Height 1.6 m Weight 113.4 kg Body Mass Index 43.0 - Constitutional Present: no acute distress, well nourished, well developed - Routine HEENT Exam Eye: Present: EOMI ENT: Present: mucous membranes moist, dentition normal - Routine Respiratory Exam Present: CTA bilaterally. Absent: wheezes - Routine Cardiovascular Exam Present: RRR, S1, S2. Absent: murmur - Routine Abdominal Exam Present: soft, distended. Absent: normoactive bowel sounds (hypoactive bowel sounds), tenderness - Routine Extremities Exam Present: normal capillary refill - Routine Skin Exam Present: intact, dry, warm - Routine Neurological Exam Present: alert, oriented X3, CN II-XII intact - Routine Lymphatic Exam Lymphatic: Absent: adenopathy - Routine Psychiatric Exam Present: normal affect, cooperative Results - Labs CBC & Chem 7: 09/01/17 04:25 09/01/17 04:25 Microbiology Results: Microbiology 08/28/17 12:55 Urine, Cath Howard Urine Culture - Final No Growth After 2 Days Assessment and Plan (1) Periprosthetic fracture around internal prosthetic right hip joint Current visit: Yes Status: Acute Assessment and Plan: Impression Right Ila-prosthetic fracture- S/P ORIF Right proximal femur by Dr Blair Anemia s/p transfusion COPD with intermittent chronic oxygen use . Uses O2 at 2 L at night only at home Hypertension Irritable bowel syndrome Depression Iron deficiency Sleep apnea Hypercholesterolemia GERD Seizure Hx Morbid Obesity with BMI 43.4 Constipation- early ileus- 09/01 Plan Abdominal x-ray does reveal moderate amount of stool with possible early ileus. Abdomen is distended with hypoactive bowel sounds. Will initiate scheduled Reglan every 6 hours to help with GI motility Initiate scheduled Dulcolax suppositories. Spoke with patient and nurse at about aggressive bowel motivation. Currently on 2 liters of oxygen, she normally uses oxygen at nighttime only. We can continue to wean down, Dr. Toribio is consulted. Noted iron deficiency Will add PO iron supplementation Continue to work with PT and OT for ongoing postoperative strengthening. Case discussed with attending, Dr. Lang 09/01/2017, 6:30 PM, Dr. Lang I reviewed this chart, the patient history, and the CHIEF ARCHITECT's/PA's documented findings as above. We discussed and formulated the assessment and plan as above with the additions below. The patient was seen this evening in her room. She was eating supper. She is a little confused and asked if this was lunchtime. She denies any nausea or vomiting today. Her appetite is better. She stated she had some abdominal pain earlier this morning but that resolved after having a bowel movement. She denies any shortness of breath. She denies any chest pain. She states she just feels "under the weather". Pain is better controlled. She has not needed any morphine recently. On exam she is alert. She is oriented to August, [facility], 2017, [facility] Chest is clear to auscultation. Cardiovascular reveals a regular rate and rhythm. Abdomen is obese, mildly distended, nontender, with positive bowel sounds. Extremities are free of edema. Lab today shows hemoglobin is down to 8.0. Vital signs are stable. Impression and plan Patient is slowly improving after ORIF of the right hip. Pain is better controlled. She is more anemic today. We'll recheck a hemoglobin tomorrow. Continue Reglan and Dulcolax suppositories for ileus. Symptomatically she is feeling better. Oral iron started for anemia. Continue PT OT - Physician Narrative Narrative: Date: 09/01/17 Time: 0939 Hospital Course Summary Disclaimer: The visit summary below is not to be considered part of the above Progress Note. Hospital Course: 08/27/17 Admission Admission to the care of Dr. Blair for orthopedic management and plan for surgical repair of periprosthetic fracture tomorrow 08/28. Obtain Chest Xray and EKG for Pre-op clearance. Oxygen to maintain adequate saturations. Patient states that she use to only use oxygen at night. However, since previous surgery 3 weeks ago. She has needed oxygen more oxygen around the clock. Consult placed with Dr Toribio as he follows her in the outpatient setting. Place Howard cath to DD given patient does not feel she can void on a bedpan due to the pain. Agent reports she has not been receiving her Bentyl and feels that her abdomen is distended and bloated. Will resume Bentyl 10 milligrams before meals at bedtime and will likely have to be aggressive with bowel motivation postoperatively. Will review home medications. Patient to be NPO after midnight. Patient will require Lovenox 40 milligrams subcutaneous daily 30 days postoperatively for anticoagulation. She does wish to be full code, and this orders written. At time of discharge medical care will return to patient's primary care provider , Dr Duran. 08/28/17 OP DAY Underwent ORIF Right proximal femur by Dr Blair Transfused 2 units with surgery - repeat H/H pending. Continue to monitor hemoglobin and transfuse as indicated. Continue postoperative pain control. PT/OT consulted to help maximize functional status. Will keep NS at 80cc/hr for hydration until oral drive improves. Encourage IS for pulmonary toilet. Wean O2 as able. Pulm consult has been placed. Continue Howard to monitor urine output-additionally, patient's functional status not to the point of being able to remove Howard. Recheck BMP in secondary to HTN and medication use. Continue to monitor blood counts. Impression/Plan: 1. Right Ila-prosthetic fracture S/P ORIF Right proximal femur by Dr Blair 08/28/17 -Pain control is an issue. Try to wean off IV pain medications. -Try Oxycontin BID with prn short acting for break through -Will be on Lovenox for 30 days -PT consulted 2. Anemia s/p transfusion -ABLA -Hgb stable, repeat in am. 3. COPD with intermittent chronic oxygen use . Uses O2 at 2 L at night only at home -Dr. Toribio consulted -Now on daytime as well. -Also h/o RODO only on noc oxygen -Maybe going home with daytime oxygen as well -Nebulizers 4. Hypertension -Well controlled. Only med is lasix 5. Irritable bowel syndrome -On Bentyl 6. Depression -On Celexa 7. Sleep apnea -On oxygen at night, no CPAP -Working with Dr. Toribio to get working CPAP 8. Hypercholesterolemia -On Lipitor 20mg daily 9. On GERD -Protonix 10. Seizure Hx 11. Morbid Obesity with BMI 43.4 -Ambulation my be a problem. Will need lots of encouragement -SNU at some point 12. Prophylaxis -PPI, Lovenox and SCDs 13. Will need rehab 14. Abdominal distention/constipation -Check KUB -Milk of magnesia today -Dulcolax suppository 15. Iron deficiency -Consider oral iron when GI symptoms are better, versus IV iron replacement 16. Chronic Lasix -Check renal panel and magnesium tomorrow 09/01 Abdominal x-ray does reveal moderate amount of stool with possible early ileus. Abdomen is distended with hypoactive bowel sounds. Will initiate scheduled Reglan every 6 hours to help with GI motility Initiate scheduled Dulcolax suppositories. Spoke with patient and nurse at about aggressive bowel motivation. Currently on 2 liters of oxygen, she normally uses oxygen at nighttime only. We can continue to wean down, Dr. Toribio is consulted. Noted iron deficiency Will add PO iron supplementation Continue to work with PT and OT for ongoing postoperative strengthening. Case discussed with attending, Dr. Lang
[2017-09-01] MEDS ORDERED: BISACODYL 10 MG SUPPOSITORY RECTALLY PRN (14:59)
--- NOTE | 2017-09-01 16:25 | Pulmonology Progress Note ---
Subjective Principal diagnosis: Fx hip Interval history: states she is using IS breathing is stable and she feels ok minimal cough and sputum Exam Vital signs: Temperature 96.8 F 09/01/17 15:56 Pulse Rate 18 L 09/01/17 15:56 Respiratory Rate 92 H 09/01/17 15:56 Blood Pressure 120/64 09/01/17 15:56 Pulse Oximetry 94 09/01/17 11:35 - Constitutional no acute distress, obese - Routine HEENT Exam Head: Present: normocephalic, atraumatic Eye: Absent: conjunctival icterus - Routine Neck Exam Present: supple - Routine Respiratory Exam Present: decreased breath sounds. Absent: accessory muscle use, wheezes - Routine Cardiovascular Exam Present: RRR - Urinary Catheter Management Urethral Cath placed during this visit: yes Insertion date: 08/27/17 Insertion time: 17:30 2-way Urethral Cath placed during this visit: no Assessment and Plan (1) Obesity, morbid, BMI 40.0-49.9 Status: Acute Current Visit: No (2) COPD (chronic obstructive pulmonary disease) Status: Chronic Current Visit: No - Assessment and Plan COPD Morbid Obesity R hip periprosthetic fx s/p repair Plan: Pt currently on O2 at 3L per [place], states only uses O2 2L at noc at home. CXR with cardiomegaly, otherwise no acute process. Would encourage IS q1hr, on a/a no wheezing noted. If requiring daytime O2 at dismissal will need an ExOx to arrange for daytime O2 at home. - Time Spent With Patient Total time spent is greater than 50% in coordination of care (as documented) at patient's floor/unit and/or counseling patient: less than 15 minutes
[2017-09-01] MEDS: ENOXAPARIN 40 MG/0.4 ML INJECTION SQ SCH (20:37)
[2017-09-01] MEDS: ATORVASTATIN 20 MG TABLET PO SCH (20:40)
[2017-09-01] MEDS: [UNRECOGNIZED DRUG - OTHER] PO SCH (20:40)
[2017-09-02] MEDS: METOCLOPRAMIDE 10mg/2ml INJECTION IVP SCH ×3 (03:17→14:32)
[2017-09-02] MEDS: Oxycodone *IR* 5 MG TABLET PO PRN (04:07)
[2017-09-02] MEDS: DICYCLOMINE 10mg CAPSULE PO SCH ×2 (05:52→11:08)
[2017-09-02] MEDS: PANTOPRAZOLE 40 MG TABLET PO SCH (05:52)
[2017-09-02] MEDS: NOZIN NASAL SWAB NAS SCH ×2 (05:52→14:12)
[2017-09-02 07:17] VITALS: BP 132/74; PULSE 92; TEMP 97.8
[2017-09-02] MEDS: ALBUTEROL/IPRATROPIUM 2.5mg-0.5mg/3ml NEB AEROSOL SCH ×2 (08:15→13:00)
[2017-09-02] MEDS: DOCUSATE SODIUM 100 MG CAPSULE PO SCH (09:51)
[2017-09-02] MEDS: POLYETHYL GLYCOL 3350 17gm PACKET PO SCH (09:51)
[2017-09-02] MEDS: SENNA + DOCUSATE TABLET PO SCH (09:53)
[2017-09-02] MEDS: FUROSEMIDE 40 MG TABLET PO SCH (09:53)
[2017-09-02] MEDS: [UNRECOGNIZED DRUG - OTHER] PO SCH (09:53)
[2017-09-02] MEDS: CITALOPRAM 40 MG TABLET PO SCH (09:54)
--- NOTE | 2017-09-02 09:54 | Progress Note ---
- Date 09/02/17 Subjective: Gege is seen today in follow up. She is up in the chair and reports that she is feeling better today. She did have large bowel movements yesterday and feels that her bowels will move again today. Denies hip pain is well controlled currently. Denies having chest pain, shortness of breath or nausea. She continues on 3 liters of oxygen by nasal cannula at all times. Objective Vital signs: Temperature 97.8 F 09/02/17 07:16 Pulse Rate 92 09/02/17 07:16 Respiratory Rate 20 09/02/17 08:15 Blood Pressure 132/74 09/02/17 07:16 Pulse Oximetry 96 09/02/17 08:15 Height/Weight/BMI: Height 1.6 m Weight 113.1 kg Body Mass Index 43.0 - Constitutional Present: no acute distress, well nourished, well developed - Routine HEENT Exam Eye: Present: EOMI ENT: Present: mucous membranes moist, dentition normal - Routine Respiratory Exam Present: CTA bilaterally. Absent: wheezes - Routine Cardiovascular Exam Present: RRR, S1, S2. Absent: murmur - Routine Abdominal Exam Present: soft, normoactive bowel sounds, non distended. Absent: tenderness - Routine Extremities Exam Present: pulses intact - Routine Skin Exam Present: intact, dry, warm - Routine Neurological Exam Present: alert, oriented X3, CN II-XII intact - Routine Lymphatic Exam Lymphatic: Absent: adenopathy - Routine Psychiatric Exam Present: normal affect, cooperative Results - Labs CBC & Chem 7: 09/02/17 04:00 09/02/17 04:00 Microbiology Results: Microbiology 08/28/17 12:55 Urine, Cath Howard Urine Culture - Final No Growth After 2 Days - ABG Interpretation ABG results: 09/02/17 06:27 VBG pH 7.400 VBG pCO2 63.0 H VBG pO2 44.0 VBG HCO3 39.0 H VBG Total CO2 41.0 H VBG O2 Saturation 78.0 VBG Base Excess 13.0 H Assessment and Plan (1) Periprosthetic fracture around internal prosthetic right hip joint Current visit: Yes Status: Acute Assessment and Plan: Impression Right Ila-prosthetic fracture- S/P ORIF Right proximal femur by Dr Blair Anemia s/p transfusion COPD with intermittent chronic oxygen use . Uses O2 at 2 L at night only at home Hypertension Irritable bowel syndrome Depression Iron deficiency Sleep apnea Hypercholesterolemia GERD Seizure Hx Morbid Obesity with BMI 43.4 Constipation- early ileus- 09/01 Plan Noted CO was elevated at 41. She continues on 3 liters of oxygen around the clock. Will need to discuss pulmonary recommendations with Dr Toribio today. Bowels are moving good with increase aggressive bowel motivation Overall pain appears to be well controlled Hgb stable at 8.1 Otherwise if Pulmonary is in agreement, marge can likely be discharged to [facility] for SNU Resuscitation Status: Full Code - Physician Narrative Physician: Heidi Lang MD Narrative: Date: 09/02/17 Time: 3:20 PM-I reviewed this chart, the patient history, and the INSPECTOR OF [employer]ASURES's/PA's documented findings as above. We discussed and formulated the assessment and plan as above with the additions below.-Rickey The patient was seen this afternoon in her room. She is up in a chair with plans to go to longterm later this afternoon. Pulmonology did evaluate her and they are recommending BiPAP with sleep, and [facility] The patient had large bowel movements yesterday. She is a little worried about how she will be able to do therapy. She initially had difficulties with pain management, but she has not required IV pain medication since the . On exam she is alert and in no acute distress. Chest is clear to auscultation. Cardiovascular reveals a regular rate and rhythm. Abdomen is soft, obese, nontender with positive bowel sounds. Extremities are free of edema. Hemoglobin is stable at 8.1 Venous blood gas VBG today showed pH of 7.4, PCO2 63, PO2 of 44 on 3 L O2 Impression and plan Ileus/constipation has resolved. Pain control post hip fracture repair has improved with oral pain medication Plans are for BiPAP at night for chronic hypercapnic respiratory failure. Continue DuoNeb and incentive spirometer for COPD Transfer to [facility] today for longterm/rehabilitation Hospital Course Summary Disclaimer: The visit summary below is not to be considered part of the above Progress Note. Hospital Course: 08/27/17 Admission Admission to the care of Dr. Blair for orthopedic management and plan for surgical repair of periprosthetic fracture tomorrow 08/28. Obtain Chest Xray and EKG for Pre-op clearance. Oxygen to maintain adequate saturations. Patient states that she use to only use oxygen at night. However, since previous surgery 3 weeks ago. She has needed oxygen more oxygen around the clock. Consult placed with Dr Toribio as he follows her in the outpatient setting. Place Howard cath to DD given patient does not feel she can void on a bedpan due to the pain. Agent reports she has not been receiving her Bentyl and feels that her abdomen is distended and bloated. Will resume Bentyl 10 milligrams before meals at bedtime and will likely have to be aggressive with bowel motivation postoperatively. Will review home medications. Patient to be NPO after midnight. Patient will require Lovenox 40 milligrams subcutaneous daily 30 days postoperatively for anticoagulation. She does wish to be full code, and this orders written. At time of discharge medical care will return to patient's primary care provider , Dr Duran. 08/28/17 OP DAY Underwent ORIF Right proximal femur by Dr Blair Transfused 2 units with surgery - repeat H/H pending. Continue to monitor hemoglobin and transfuse as indicated. Continue postoperative pain control. PT/OT consulted to help maximize functional status. Will keep NS at 80cc/hr for hydration until oral drive improves. Encourage IS for pulmonary toilet. Wean O2 as able. Pulm consult has been placed. Continue Howard to monitor urine output-additionally, patient's functional status not to the point of being able to remove Howard. Recheck BMP in secondary to HTN and medication use. Continue to monitor blood counts. Impression/Plan: 1. Right Ila-prosthetic fracture S/P ORIF Right proximal femur by Dr Blair 08/28/17 -Pain control is an issue. Try to wean off IV pain medications. -Try Oxycontin BID with prn short acting for break through -Will be on Lovenox for 30 days -PT consulted 2. Anemia s/p transfusion -ABLA -Hgb stable, repeat in am. 3. COPD with intermittent chronic oxygen use . Uses O2 at 2 L at night only at home -Dr. Toribio consulted -Now on daytime as well. -Also h/o RODO only on noc oxygen -Maybe going home with daytime oxygen as well -Nebulizers 4. Hypertension -Well controlled. Only med is lasix 5. Irritable bowel syndrome -On Bentyl 6. Depression -On Celexa 7. Sleep apnea -On oxygen at night, no CPAP -Working with Dr. Toribio to get working CPAP 8. Hypercholesterolemia -On Lipitor 20mg daily 9. On GERD -Protonix 10. Seizure Hx 11. Morbid Obesity with BMI 43.4 -Ambulation my be a problem. Will need lots of encouragement -SNU at some point 12. Prophylaxis -PPI, Lovenox and SCDs 13. Will need rehab 14. Abdominal distention/constipation -Check KUB -Milk of magnesia today -Dulcolax suppository 15. Iron deficiency -Consider oral iron when GI symptoms are better, versus IV iron replacement 16. Chronic Lasix -Check renal panel and magnesium tomorrow 09/01 Abdominal x-ray does reveal moderate amount of stool with possible early ileus. Abdomen is distended with hypoactive bowel sounds. Will initiate scheduled Reglan every 6 hours to help with GI motility Initiate scheduled Dulcolax suppositories. Spoke with patient and nurse at about aggressive bowel motivation. Currently on 2 liters of oxygen, she normally uses oxygen at nighttime only. We can continue to wean down, Dr. Toribio is consulted. Noted iron deficiency Will add PO iron supplementation Continue to work with PT and OT for ongoing postoperative strengthening. Case discussed with attending, Dr. Lang Impression and plan Patient is slowly improving after ORIF of the right hip. Pain is better controlled. She is more anemic today. We'll recheck a hemoglobin tomorrow. Continue Reglan and Dulcolax suppositories for ileus. Symptomatically she is feeling better. Oral iron started for anemia. Continue PT OT 09/02 Noted CO was elevated at 41. She continues on 3 liters of oxygen around the clock. Will need to discuss pulmonary recommendations with Dr Toribio today. Bowels are moving good with increase aggressive bowel motivation Overall pain appears to be well controlled Hgb stable at 8.1 Otherwise if Pulmonary is in agreement, patinet can likely be discharged to [facility] for SNU
[2017-09-02] MEDS: GABAPENTIN 300 MG CAPSULE PO SCH ×2 (09:55→14:32)
--- NOTE | 2017-09-02 11:43 | Pulmonology Progress Note ---
Subjective Principal diagnosis: Fx hip Interval history: Pt up in the chair, resting, wakers to voice. States she doesn't have SOB, + slight cough and sputum. Exam Vital signs: Temperature 97.8 F 09/02/17 07:16 Pulse Rate 92 09/02/17 07:16 Respiratory Rate 20 09/02/17 08:15 Blood Pressure 132/74 09/02/17 07:16 Pulse Oximetry 96 09/02/17 08:15 Inpatient Medications: Generic Name Dose Route Start Last Admin Trade Name Freq PRN Reason Stop Dose Admin Acetaminophen 650 mg 08/28/17 12:22 08/29/17 08:49 Tylenol PO 650 mg QID PRN Administration Pain Albuterol/Ipratropium 3 ml 08/28/17 15:00 09/02/17 08:15 Duoneb AEROSOL 3 ml RTQID MEREDITH Administration Albuterol/Ipratropium 3 ml 08/29/17 07:24 08/29/17 09:45 Duoneb AEROSOL 3 ml RTQID PRN Administration Atorvastatin Calcium 20 mg 08/28/17 21:00 09/01/17 20:40 Lipitor PO 20 mg HS MEREDITH Administration Bisacodyl 10 mg 09/01/17 14:59 Dulcolax RECTALLY Q6H PRN Constipation Citalopram Hydrobromide 60 mg 08/29/17 09:00 09/02/17 09:54 Celexa PO 60 mg DAILY MEREDITH Administration Dicyclomine HCl 10 mg 08/27/17 17:00 09/02/17 11:08 Bentyl PO 10 mg ACHS MEREDITH Administration Diphenhydramine HCl 25 mg 08/28/17 12:22 Benadryl PO Q6H PRN Itching Diphenhydramine HCl 25 mg 08/28/17 12:22 Benadryl IVP Q6HR PRN Itching Docusate Sodium 100 mg 08/28/17 21:00 09/02/17 09:51 Colace PO 100 mg BID MEREDITH Administration Enoxaparin Sodium 40 mg 08/28/17 21:00 09/01/17 20:37 Lovenox SQ 40 mg Q24H MEREDITH Administration Ferrous Fumarate/Vit B12/Folic Acid 1 cap 09/01/17 21:00 09/02/17 09:53 Ferocon PO 1 cap BID MEREDITH Administration Furosemide 60 mg 08/28/17 21:00 09/02/17 09:53 Lasix PO 60 mg BID MEREDITH Administration Gabapentin 300 mg 08/28/17 15:00 09/02/17 09:55 Neurontin PO 300 mg TID MEREDITH Administration Isopropyl Alcohol 1 each 08/28/17 14:00 09/02/17 05:52 Nozin Nasal Swab SUKHJINDER 1 each 0600,1400,2200 MEREDITH Administration Metoclopramide HCl 10 mg 09/01/17 09:00 09/02/17 09:55 Reglan IVP 10 mg Q6HR MEREDITH Administration Morphine Sulfate 4 mg 08/27/17 18:20 08/29/17 08:45 Morphine Sulfate Inj IVP 4 mg Q2H PRN Administration Pain Ondansetron HCl 4 mg 08/28/17 12:22 Zofran IVP Q4H PRN Nausea &/or vomiting Oxycodone HCl 5 - 15 mg 08/27/17 17:00 09/02/17 04:07 Roxicodone *Ir* PO 10 mg Q4H PRN Administration Pain Pantoprazole Sodium 40 mg 08/30/17 06:30 09/02/17 05:52 Protonix Tab PO 40 mg ACB MEREDITH Administration Polyethylene Glycol 17 gm 08/29/17 09:00 09/02/17 09:51 Miralax PO 17 gm DAILY MEREDITH Administration Potassium Chloride 20 meq 08/29/17 08:00 09/02/17 09:53 K-Dur 20 Meq Tablet PO 20 meq WB MEREDITH Administration Senna/Docusate Sodium 1 tab 08/29/17 09:00 09/02/17 09:53 Senna Plus Tablet PO 1 tab DAILY MEREDITH Administration Sodium Chloride 500 ml 08/30/17 15:04 08/30/17 15:07 Normal Saline IV 500 ml PRN PRN Administration Discontinued Medications Generic Name Dose Route Start Last Admin Trade Name Freq PRN Reason Stop Dose Admin Acetaminophen 1,000 mg 08/28/17 06:00 08/28/17 06:23 Tylenol PO 08/28/17 06:01 1,000 mg PREOP ONE Administration Albuterol/Ipratropium 3 ml 08/28/17 15:00 Duoneb AEROSOL RTQID [facility] Bisacodyl 10 mg 08/30/17 20:00 08/30/17 22:13 Dulcolax RECTALLY 08/30/17 20:01 10 mg DAILY MEREDITH Administration Bisacodyl 10 mg 08/31/17 19:18 08/31/17 20:07 Dulcolax RECTALLY 08/31/17 19:19 Not Given O ONE Bisacodyl 10 mg 09/01/17 08:30 09/01/17 15:33 Dulcolax RECTALLY Not Given Q6H MEREDITH Cefazolin Sodium 2 g 08/28/17 07:03 08/28/17 07:17 Kefzol IVP 08/28/17 07:04 2 g PREOP ONE Administration Dexamethasone 10 mg 08/28/17 06:00 08/28/17 06:36 Decadron IVP 08/28/17 06:01 10 mg PREOP ONE Administration Enoxaparin Sodium 40 mg 08/27/17 16:00 08/27/17 19:10 Lovenox SQ 08/27/17 16:01 40 mg O ONE Administration Fentanyl 25 - 50 mcg 08/28/17 10:33 08/28/17 11:18 Fentanyl IVP 50 mcg Q5M PRN Administration Pain Sodium Chloride 1,000 mls @ 150 mls/hr 08/27/17 14:00 08/27/17 18:34 Normal Saline IV 50 mls/hr .Q6H40M MEREDITH Infusion Famotidine/Sodium Chloride 20 mg in 50 mls @ 100 mls/hr 08/28/17 06:00 06:27 Pepcid Premix IV 08/28/17 06:29 100 mls/hr PREOP ONE Administration Sodium Chloride 1,000 mls @ 50 mls/hr 08/27/17 14:02 08/27/17 18:25 Normal Saline IV Not Given .Q20H MEREDITH Tranexamic Acid 1,000 mg/ 110 mls @ 660 mls/hr 08/28/17 06:00 08/28/17 07:55 Sodium Chloride IV 08/28/17 06:09 Infused INTRAOP ONE Infusion Epinephrine HCl 0.25 mg/ 62.25 mls @ 1 mls/hr 08/28/17 06:00 08/28/17 09:30 Bupivacaine HCl 30 ml/ OPSITE 08/30/17 20:14 1 mls/hr Ketorolac Tromethamine 60 mg/ INTRAOP ONE Administration Sodium Chloride Protocol Tranexamic Acid 1,000 mg/ 110 mls @ 660 mls/hr 08/28/17 06:00 08/28/17 09:58 Sodium Chloride IV 08/28/17 06:09 Infused INTRAOP ONE Infusion Sodium Chloride 1,000 mls @ 50 mls/hr 08/27/17 18:30 08/28/17 11:59 Normal Saline IV Infused .Q20H MEREDITH Infusion Sodium Chloride 1,000 mls @ 50 mls/hr 08/28/17 06:30 08/28/17 10:26 Normal Saline IV Infused .Q20H MEREDITH Infusion Cefazolin Sodium 2 g/ Sodium 50 mls @ 100 mls/hr 08/28/17 15:00 08/31/17 06: 28 Chloride IV 100 mls/hr Q8H MEREDITH Administration Sodium Chloride 1,000 mls @ 80 mls/hr 08/28/17 12:22 08/29/17 13:17 Normal Saline IV Infused .[id number] MEREDITH Infusion Isopropyl Alcohol 1 each 08/28/17 06:00 08/28/17 12:30 Nozin Nasal Swab SUKHJINDER 08/28/17 06:03 Not Given Q1M MEREDIHT Isopropyl Alcohol 1 each 08/28/17 12:22 08/28/17 12:36 Nozin Nasal Swab SUKHJINDER 08/28/17 12:23 1 each POSTOP ONE Administration Lidocaine HCl 1 mg 08/27/17 14:02 08/27/17 18:25 Xylocaine-Mpf 1% Vial ID 08/27/17 14:03 Not Given O ONE Magnesium Hydroxide 30 ml 08/30/17 08:00 08/30/17 08:28 Mom PO 08/30/17 08:01 30 ml DAILY MEREDITH Administration Magnesium Hydroxide 30 ml 08/31/17 19:18 08/31/17 20:06 Mom PO 08/31/17 19:19 30 ml O ONE Administration Metoclopramide HCl 10 mg 08/28/17 06:00 08/28/17 06:30 Reglan IVP 08/28/17 06:01 10 mg PREOP ONE Administration Morphine Sulfate 4 mg 08/27/17 12:21 08/27/17 13:08 Morphine Sulfate Inj IVP 08/27/17 12:22 4 mg O ONE Administration Ondansetron HCl 4 mg 08/27/17 12:20 08/27/17 13:05 Zofran IVP 08/27/17 12:21 4 mg O ONE Administration Ondansetron HCl 4 mg 08/28/17 06:00 08/28/17 06:34 Zofran IVP 08/28/17 06:01 4 mg PREOP ONE Administration Ondansetron HCl 4 mg 08/27/17 14:30 Zofran IVP Q6H PRN Nausea. Oxycodone HCl 5 - 15 mg 08/27/17 14:30 Roxicodone *Ir* PO Q4H PRN Pain Pharmacy Consult 1 each 08/29/17 15:15 Pharmacy Consult - Fall Risk XX 08/29/17 15:16 ONE TIME ONE Sodium Chloride 10 ml 08/27/17 13:09 08/27/17 13:11 Iv Flush IVF 10 ml PRN PRN Administration Flushing Sodium Chloride 10 - 80 ml 08/27/17 14:02 Iv Flush IV PRN PRN Flushing - Constitutional no acute distress, morbidly obese, cooperative - Routine HEENT Exam Head: Present: normocephalic, atraumatic Eye: Present: EOMI, PERRL ENT: Present: mucous membranes moist - Routine Neck Exam Present: supple, full ROM, trachea midline - Routine Respiratory Exam Present: decreased breath sounds. Absent: accessory muscle use, patient mechanically ventilated - Routine Cardiovascular Exam Present: RRR, S1, S2, no murmur - Routine Abdominal Exam Present: soft, normoactive bowel sounds - Routine Extremities Exam Present: edema, non tender. Absent: cyanosis, clubbing - Routine Back/Spine/Pelvis Exam Back/Spine: Present: full ROM - Routine Skin Exam Present: intact, dry - Routine Neurological Exam Present: alert, oriented X3, CN II-XII intact - Routine Psychiatric Exam Present: normal affect, normal thought process, good judgment - Urinary Catheter Management Urethral Cath placed during this visit: yes Insertion date: 08/27/17 Insertion time: 17:30 2-way Urethral Cath placed during this visit: no Results - Laboratory Findings Laboratory: Laboratory Results - last 48 hr 08/28/17 09/01/17 09/01/17 03:49 04:25 04:25 WBC 8.9 RBC 3.19 L Hgb 8.0 L Hct 26.1 L MCV 81.8 MCH 25.1 L MCHC 30.7 L RDW Std Deviation 59.1 H Plt Count 263 MPV 9.8 Immature Gran % (Auto) Neut % (Auto) Lymph % (Auto) Sac % (Auto) Eos % (Auto) Baso % (Auto) Neut # (Auto) Lymph # (Auto) Sac # (Auto) Eos # (Auto) Baso # (Auto) Abs Immat Gran (auto) Neutrophils % (Manual) 64.0 Band Neutrophils % 2.0 Lymphocytes % (Manual) 16.0 L Monocytes % (Manual) 9.0 Eosinophils % (Manual) 5.0 H Metamyelocytes % 2.0 H Myelocytes % 2.0 H Neutrophils # (Manual) 5.7 Band Neutrophils # 0.2 Lymphocytes # (Manual) 1.4 Monocytes # (Manual) 0.8 Eosinophils # (Manual) 0.4 Metamyelocytes # 0.2 Myelocytes # 0.2 Hypochromasia 1+ Poikilocytosis 1+ Anisocytosis 1+ Ovalocytes 1+ RBC Morph Comment Abnormal VBG pH VBG pCO2 VBG pO2 VBG HCO3 VBG Total CO2 VBG O2 Saturation VBG Base Excess O2 Delivery Method FiO2 (liters per min) Turbidity < 20 Sodium 139 Potassium 3.7 Chloride 96 L Carbon Dioxide 37 H Anion Gap 6 BUN 15.0 Creatinine 0.7 GFR Calculation 82 BUN/Creatinine Ratio 21 Glucose 138 H Calculated Osmolality 271 Calcium 8.4 Phosphorus 3.5 Magnesium 2.0 Icterus Index < 2 Albumin 2.9 L 25-OH Vitamin D Total 12 L Specimen Hemolysis < 15 09/02/17 09/02/17 09/02/17 04:00 04:00 06:27 WBC 7.9 RBC 3.24 L Hgb 8.1 L Hct 26.7 L MCV 82.4 MCH 25.0 L MCHC 30.3 L RDW Std Deviation 58.7 H Plt Count 326 MPV 10.0 Immature Gran % (Auto) 1.8 H Neut % (Auto) 66.3 H Lymph % (Auto) 15.2 L Sac % (Auto) 10.9 H Eos % (Auto) 5.3 H Baso % (Auto) 0.5 Neut # (Auto) 5.2 Lymph # (Auto) 1.2 Sac # (Auto) 0.9 H Eos # (Auto) 0.4 Baso # (Auto) 0.0 Abs Immat Gran (auto) 0.14 H Neutrophils % (Manual) Band Neutrophils % Lymphocytes % (Manual) Monocytes % (Manual) Eosinophils % (Manual) Metamyelocytes % Myelocytes % Neutrophils # (Manual) Band Neutrophils # Lymphocytes # (Manual) Monocytes # (Manual) Eosinophils # (Manual) Metamyelocytes # Myelocytes # Hypochromasia Poikilocytosis Anisocytosis Ovalocytes RBC Morph Comment VBG pH 7.400 VBG pCO2 63.0 H VBG pO2 44.0 VBG HCO3 39.0 H VBG Total CO2 41.0 H VBG O2 Saturation 78.0 VBG Base Excess 13.0 H O2 Delivery Method Nasal cannula, liter FiO2 (liters per min) 3.0 Turbidity < 20 Sodium 140 Potassium 3.7 Chloride 93 L Carbon Dioxide 41 H* Anion Gap 6 BUN 12.0 Creatinine 0.7 GFR Calculation 82 BUN/Creatinine Ratio 17 Glucose 110 Calculated Osmolality 270 Calcium 8.5 Phosphorus Magnesium Icterus Index < 2 Albumin 25-OH Vitamin D Total Specimen Hemolysis < 15 - Diagnostic Findings Chest x-ray: image reviewed (no new CXR) Assessment and Plan - Assessment and Plan Chronic Hypercapnic respiratory failure VBG 7. COPD Morbid Obesity R hip periprosthetic fx s/p repair Plan: Pt currently on O2 at 3L per [place], states only uses O2 2L at [facility] at home. no new CXR. Would encourage IS q1hr, on a/a no wheezing noted. Pt apparently lethargic and out of it yesterday, VBG 7. showing chronic hypercapnic failure. Pt does complain of fatigue, hypersomnia during days and waking tired. Would benefit from Bipap at facility, likely will require [place] [facility] [place] Will order bipap f14, Ip 14, Ep 5, bled in O2 at 3L. Would continue neb A/A till seen in clinic, f/u in 2-[address] Toribio. - Time Spent With Patient Total time spent is greater than 50% in coordination of care (as documented) at patient's floor/unit and/or counseling patient: less than 15 minutes
[2017-09-02 13:09] VITALS: RESP 24
--- NOTE | 2017-09-02 14:12 | Discharge Summary ---
Orthopedic Discharge Info Date of admission: 08/27/17 14:15 Primary care physician: Yazmin Duran MD Attending Physician: Micheal Blair MD Consults: 08/27/17 14:47 Physician Consult [CONS] Routine Consulting Provider: Micheal Blair Reason For Exam: MEDICAL MANAGEMENT Ordering Provider has Notified Services Delivery Driver: Yes 08/27/17 16:05 Physician Consult [CONS] Routine Consulting Provider: Frederick Harrison Reason For Exam: MEDICAL MANAGEMENT Ordering Provider has Notified Services Delivery Driver: Yes 08/27/17 16:26 Physician Consult [CONS] Routine Consulting Provider: Lasha Toribio Reason For Exam: COPD, Sleep apnea, ? chronic O2 use. Ordering Provider has Notified Services Delivery Driver: Yes Comment: Already noticied by myself 08/28/17 IRU Screening [Inpatient Rehab Screening] [CONS] Routine Screen requested by:: Case Management 08/28/17 12:22 Case Management Consult [CONS] Routine Reason For Exam: Discharge Planning DME-Walker [CONS] Routine Height: 5 ft 3 in Weight: 243 lb 2.718 oz Total Joint Outpatient Therapy [CONS] Routine Comment: Remove dressing in 2 weeks 08/28/17 13:37 Physician Consult [CONS] Routine Consulting Provider: Albaro Means Reason For Exam: CONT CARE Ordering Provider has Notified Services Delivery Driver: Yes - Discharge Diagnosis (1) Periprosthetic fracture around internal prosthetic right hip joint Qualifiers: Encounter type: initial encounter Qualified Code(s): M97.01XA - Periprosthetic fracture around internal prosthetic right hip joint, initial encounter; T84.040A - Periprosthetic fracture around internal prosthetic right hip joint, initial encounter Status: Acute - Procedures Procedures: Procedures ORIF right distal periprosthetic fracture. - Laboratory Result Diagrams: 09/02/17 04:00 09/02/17 04:00 Laboratory: Abnormal lab results 09/02/17 09/02/17 09/02/17 Range/Units 04:00 04:00 06:27 RBC 3.24 L (4.00-5.20) M/MM3 Hgb 8.1 L (12-16) GM/DL Hct 26.7 L (36-46) % MCH 25.0 L (26-34) UUG MCHC 30.3 L (31-37) GM/DL RDW Std Deviation 58.7 H (36.9-50.2) FL Immature Gran % (Auto) 1.8 H (0.0-0.5) % Neut % (Auto) 66.3 H (33-66) % Lymph % (Auto) 15.2 L (23-45) % [place] % (Auto) 10.9 H (0-9.0) % Eos % (Auto) 5.3 H (0-4) % [place] # (Auto) 0.9 H (0-0.8) T/MM3 Abs Immat Gran (auto) 0.14 H (0.00-0.03) T/MM3 VBG pCO2 63.0 H (40-52) MMHG VBG HCO3 39.0 H (22-26) MEQ/L VBG Total CO2 41.0 H (22.0-32.0) MEQ/L VBG Base Excess 13.0 H (-5.0-5.0) MMOL/L Chloride 93 L (98-107) MEQ/L Carbon Dioxide 41 H* (22-30) MEQ/L H & H 08/28/17 08/28/17 08/29/17 Range/Units 03:49 15:06 04:47 Hgb 9.9 L 11.0 L D 8.5 L D (12-16) GM/DL Hct 32.8 L 27.4 L D (36-46) % 08/29/17 08/30/17 08/31/17 Range/Units 10:04 04:01 03:53 Hgb 8.7 L 8.6 L 8.7 L (12-16) GM/DL Hct 27.6 L 27.7 L 27.6 L (36-46) % 09/01/17 09/02/17 Range/Units 04:25 04:00 Hgb 8.0 L 8.1 L (12-16) GM/DL Hct 26.1 L 26.7 L (36-46) % - Microbiology Microbiology 08/28/17 12:55 Urine, Cath Howard Urine Culture - Final No Growth After 2 Days Orthopedic Discharge HPI - HPI Comments Mrs. Murray is a kind 72-year-old female who is 3 weeks status post right total hip arthroplasty. She called my office today complaining of severe groin pain with ambulation. We asked her to come in for an x-ray but she didn't feel safe coming down her stairs that she called 911 is brought into the emergency room here [facility] Emergency room she was evaluated by the emergency room staff and a CT scan was ordered as well as an ultrasound. Ultrasound was negative for blood clot the CT scan did show a periprosthetic fracture. I was contacted in recommended admission to the hospital today for surgery tomorrow. Mrs. Murray states that she was doing very well last week started having more pain on Thursday when she was discharged from the [facility]. She states the pain is increased since Thursday in really has been severe in the groin with weightbearing yesterday and today. She does not recall any incident where she stumbled and fell or felt a pop. She complains of only right hip pain. Orthopedic Hospital Course Hospital course: 09/02/17 14:05 After appropriate preoperative clearance and signing of operative consent, the patient was given IV antibiotics, according to orthopedic protocol. The patient was taken to the operating room and underwent open reduction with internal fixation of her right distal periprosthetic fracture. She was made foot flat weight bearing with no true weight through the right leg. Following surgery, antibiotics were discontinued less than 24 hours according to joint protocol. Appropriate anticoagulants were initiated and SCDs added for DVT prevention. Her dressing was saturated post op day 2 and was cleaned with Chlorohexadine and replaced. Pain control was obtained via multimodal approach. Bowel motivation addressed with scheduled and PRN medications. She did have some early abdominal distension. The hospital service addressed this with Reglan and Ducolax suppositories. She did have a BM before consideration for discaharge. Her CO2 demands did increase throughout her stay due to long standing COPD and sleep apena. Dr. Thompson was consulted. It was decided to discharge her on BiPap. The hospital service, pulmonary service and orthopaedic service were in agreement for discharge to [facility] on 09/02/16. Early mobilization was initiated through PT services. Discharge arrangements made by a collaborative effort between the patient and Case Management. Follow-up is scheduled in 2-3 weeks. Discharge instructions given by orthopedic providers and nursing staff at discharge. Discharge condition was good. Care extended to > 2 midnight stays?: Yes Discharge Plan - Med Rec/Dispo Referrals/Follow Up: Tanner Martin PA [Physician [employer] Technician] - 1 Week Truven Instructions: [facility] Postop Instructions Prescriptions: New Enoxaparin Sodium [Lovenox] 40 mg SQ Q24H syringe Oxycodone *IR* [Roxicodone *Ir*] 5 - 15 mg PO Q4H PRN #60 tab PRN Reason: Pain Continue Cranberry Fruit [Cranberry] 400 mg PO DAILY PEG 3350 17gm PACKET [Miralax] 17 gm PO DAILY packet Docusate Sodium [Colace] 1 cap PO DAILY Potassium Chloride [K-Tab ER] 20 meq PO DAILY Ibuprofen [Motrin] 600 mg PO Q6H PRN PRN Reason: Pain Acetaminophen [Tylenol] 650 mg PO QID PRN PRN Reason: Pain Atorvastatin Calcium 20 mg PO HS #0 Furosemide [Lasix] 60 mg PO BID Citalopram [Celexa] 60 mg PO DAILY Sennosides/Docusate Sodium [Senna-S Tablet] 1 each PO DAILY Gabapentin 300 mg PO TID Discontinued Aspirin *EC* [Ecotrin] 81 mg PO BID #84 tab Hydrocodone/APAP 5/325 [Lynn 5/325] 1 tab PO Q4H PRN PRN Reason: Pain - Disposition 03 To SNU Not [facility] (SNF) - Dismissal Complete Discharge Instructions are:: Complete
--- NOTE | 2017-09-02 14:19 | Extended Care Facility Orders ---
Admission Orders Admit to:: [facility] Allergies/Adverse Reactions: Allergies Estrogens Allergy (Severe, Verified 08/27/17 20:54) Swelling lorazepam [From Ativan] Allergy (Severe, Verified 08/27/17 20:54) Behavior Disturbance varenicline Allergy (Severe, Verified 08/27/17 20:54) hallucinations Penicillins Allergy (Mild, Verified 08/27/17 20:54) Rash amoxicillin Allergy (Unknown, Verified 08/27/17 20:54) Rash ampicillin Allergy (Unknown, Verified 08/27/17 20:54) Rash Sulfa (Sulfonamide Antibiotics) Allergy (Unknown, Verified 08/27/17 20:54) Rash codeine Adverse Reaction (Unknown, Verified 08/27/17 20:54) altered congnition levofloxacin Adverse Reaction (Unknown, Verified 08/27/17 20:54) altered cognition bupropion HCl Adverse Reaction (Unknown, Uncoded 08/27/17 20:54) altered cognitive state Admitting Diagnosis: Periprosthetic fracture right proximal femur Admitting Physician: Micheal Blair MD Attending Physician: Micheal Blair MD Code Status: Full Code Rehab Potential: fair Rehab Prognosis: fair Diet: 08/28/17 Dinner Regular Diet [DIET] Diet Modifications: May use Facility Protocol or Standing Orders: Yes May have flu vaccine: Yes Evaluations/Treatment: PT (toe touch weight bearing only on right side. (no more pressure than it would take to crack an egg under the right foot.)), OT ( toe touch only on the right side. (no more pressure on the right side then it would take to crack an egg).) [facility] Certification: I certify that SNF services are required to be given on an Inpatient basis because of the patients need for alf care on a continuing basis for the condition(s) for which he/she received inpatient hospital services prior to his/her transfer to the SNF. SNF inpatient care is necessary for the following reasons Indication for [facility]: Postop Assessment Care - Additional Information In Event of Arrest: Start CPR,call 911,send patient to the ER Resident is Aware of Diagnosis: Yes Referrals: Tanner Martin PA [Physician Manager [employer]] - 2 Weeks Additional Orders: She will need 30 days of anticoagulation (Lovenox) from the date of surgery. Her last dose will be 09/24/17.
[2017-09-02 14:53] VITALS: O2SAT 92
== END 2017-09-02 15:20 | DRG 467 ==
LOC: ED 10:59 → SRG 14:15
PROVIDERS: ADMIT Orthopaedic Surgery; ATTEND Orthopaedic Surgery